=== PATIENT | male | born 1940 | race Caucasian/White ===

== ENCOUNTER 2019-08-20 16:07 | Outpatient (CLI) | payer MEDICARE, BC, SELFPAY ==
--- NOTE | 2019-08-20 16:20 | XRR_ITS ---
PROCEDURE INFORMATION: Exam: XR Lumbosacral Spine, 2 or 3 Views Exam date and time: 08/20/2019 4:34 PM Age: 79 years old Clinical indication: Patient HX: Chronic low back pain TECHNIQUE: Imaging protocol: XR of the lumbosacral spine, 2 or 3 views. COMPARISON: No relevant prior studies available. FINDINGS: Vertebrae: Generalized osteopenia is seen. A compression fracture is present involving the superior endplate of L2 vertebral body. Normal alignment. 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
== END 2019-08-20 16:08 | disposition home or self-care (01) ==
LOC: RAD 16:16
PROVIDERS: Family Provider Family Medicine; PCP Family Medicine; Visit Provider Family Medicine
DX: M48.56XA Collapsed vertebra, not elsewhere classified, lumbar region, initial encounter for fracture (principal); M54.5 Low back pain; I70.0 Atherosclerosis of aorta; M47.896 Other spondylosis, lumbar region; M47.897 Other spondylosis, lumbosacral region
CPT/HCPCS: 72100

== ENCOUNTER 2021-02-20 10:16 | Emergency (ER) | payer MEDICARE, BC, SELFPAY ==
[2021-02-20 10:28] VITALS: BP 134/83; PULSE 114; RESP 18; TEMP 36.5; O2SAT 96; BMI 25.0
[2021-02-20 10:32] VITALS: BP 134/83; PULSE 113; RESP 17; O2SAT 95
--- NOTE | 2021-02-20 10:34 | W.ED.GENADLT ---
HPI - General Adult General: Chief complaint: General Medical Stated complaint: UNABLE TO PEE OR HAVE BM Time Seen by Provider: 02/20/21 10:27 History of Present Illness: HPI narrative: 80-year-old male presents to the emergency room postop from a back surgery. He had it Monday, 3 days ago in [place]. Since then he has been able to have some dribbling with urination does not have a bowel movement he stopped taking his narcotic pain medications. Not had any fecal incontinence. Onset (ago): day(s) Location: pelvis Radiation: non-radiation Severity: moderate Quality: aching Pain Consistency: constant Relieving factors: none Exacerbating factors: movement Associated symptoms: Deny chest pain, confusion, cough, diaphoresis, decreased appetite, dyspnea, fevers/chills, headache(s), malaise, nausea, rash, palpitations, seizures, short of breath, syncope, vomiting or weakness Treatments prior to arrival: none Review of Systems Const: Denies: malaise or diaphoresis ENMT: Denies: throat pain, ear or mastoid pain, nasal discharge or nasal congestion Card: Denies: chest pain, palpitations or syncope Resp: Denies: dyspnea GI: Denies: nausea or vomiting : Denies: flank pain, dysuria, urinary frequency or urinary urgency Skin/Breast: Denies: rash Neuro: Denies: headache(s) or confusion Physical Exam Const: COMMON NORMALS: no acute distress GENERAL APPEARANCE: cooperative and comfortable ORIENTATION/CONSCIOUSNESS: Yes awake, Yes oriented to person, Yes oriented to place and Yes oriented to time HENMT: COMMON NORMALS: normocephalic, atraumatic and hearing grossly normal bilaterally HEAD & SCALP: normocephalic and atraumatic Neck/C-Spine: COMMON NORMALS: no JVD Resp: COMMON NORMALS: normal respiratory effort, No retractions, No use of accessory muscles and clear to auscultation bilaterally AUSCULTATION: clear to auscultation bilaterally Cardio: COMMON NORMALS: no JVD, regular rate, regular rhythm and No murmurs present (Cardio) RATE: regular rate RHYTHM: regular rhythm GI: COMMON NORMALS: Soft to palpation and No hepatosplenomegaly present AUSCULTATION: Yes normoactive bowel sounds PALPATION: Yes Soft to palpation, No Tenderness to palpation present (GI), No Guarding due to palpation present (GI) and Yes No hepatosplenomegaly present Extremity: COMMON NORMALS: normal to inspection, capillary refill normal, no clubbing, cyanosis or edema, no calf tenderness and no pedal edema Neuro: SENSORIUM/ORIENTATION: Yes oriented to person, Yes oriented to place and Yes oriented to time Skin: COMMON NORMALS: no rashes or lesions noted GENERAL SKIN EXAM: no rashes or lesions noted Course Vital Signs: Vital signs: Vital Signs Temperature 97.7 F 02/20/21 10:28 Pulse Rate 98 02/20/21 12:40 Respiratory Rate 17 02/20/21 12:40 Blood Pressure 115/77 02/20/21 12:40 Pulse Oximetry 94 02/20/21 12:40 MDM - General Adult MDM Narrative: Medical decision making narrative: Symptoms completely relieved after placement of catheter. Patient has no other symptoms at this point. Suspect this is from his anesthesia. We will start him on tamsulosin and have him follow-up with his urologist has further problems return. Lab Data: Labs: Lab Results 02/20/21 02/20/21 02/20/21 Range/Units 10:55 11:03 11:03 WBC 10.1 H (4.0-10.0) 10^3/ uL RBC 3.55 L (4.1-5.3) 10^6/u L Hgb 10.8 L (11.7-16.6) g/dL Hct 33.1 L (42.0-52.0) % MCV 93.2 (80-94) fL MCH 30.4 (28.0-34.0) pg MCHC 32.6 (30.0-36.0) g/dL RDW 13.5 (12.1-15.1) % Plt Count 215 (130-400) 10^3/c mm MPV 10.9 H (7.4-10.4) fL Neut % (Auto) 75.0 % Lymph % (Auto) 10.4 % Newton % (Auto) 13.7 % Eos % (Auto) 0.3 % Baso % (Auto) 0.3 % Neut # (Auto) 7.58 (1.8-7.7) 10^3/u L Lymph # (Auto) 1.1 (0.8-4.8) 10^3/u L Newton # (Auto) 1.4 H (0.2-0.9) 10^3/u L Eos # (Auto) 0.0 (0.0-0.8) 10^3/u L Baso # (Auto) 0.0 (0.0-0.1) 10^3/u L Nucleated RBC % (a uto) 0 % Nucleated RBCs # 0.0 /100WBC Sodium 133 L (136-145) mmol/L Potassium 4.5 (3.5-5.1) mmol/L Chloride 99 (98-107) mmol/L Carbon Dioxide 24 (22-29) mmol/L Anion Gap 14.5 (5-19) BUN 25 H (8-23) mg/dL Creatinine 1.3 H (0.7-1.2) mg/dL GFR Calculation Not Reportable Glucose 115 (65-115) mg/dL Calculated Osmolal ity 281 L (285-295) mOsm/k g Calcium 8.5 (8.5-10.5) mg/dL Total Bilirubin 0.7 (0.15-1.2) mg/dL AST 20 (0-40) U/L ALT 9 (0-41) U/L Alkaline Phosphata se 59 (40-130) IU/L Total Protein 6.6 (6.6-8.7) g/dL Albumin 3.9 (3.5-5.2) g/dL Globulin 2.7 (1.3-4.6) g/dL Urine Color Yellow (Yellow) Urine Appearance Clear (CLEAR) Urine pH 5 (5-7) Ur Specific Gravit y 1.015 (1.005-1.030) Urine Protein Neg (Negative) Urine Glucose (UA) Norm (Normal) Urine Ketones Negative (Negative) Urine Blood 2+ H (Negative) Urine Nitrate Negative (Negative) Urine Bilirubin Neg (Negative) Urine Urobilinogen Norm (Negative) mg/dL Ur Leukocyte Evangelina ase Negative (Negative) Urine RBC 5-10 H (0-2) /hpf Urine WBC Rare (0-5) /hpf Ur Squamous Epith Cells None (0-5) /hpf Amorphous Sediment Not Reportable Urine Bacteria Trace (NONE) /hpf Discharge Plan Discharge Patient Disposition: Home Clinical Impression: Acute urinary retention, Benign prostatic hyperplasia Condition: Stable Prescriptions: New tamsulosin 0.4 mg capsule 0.4 mg PO DAILY Qty: 20 RF: 0 No Action losartan 50 mg tablet 50 mg PO DAILY RF: 0 simvastatin 20 mg tablet 20 mg PO DAILY RF: 0 gabapentin 100 mg capsule 100 mg PO DAILY RF: 0 Discharge Orders: Discharge ED (Routine); Ordered 02/20/21 Ordered By: Dg Telles Referrals: Yaima Ji MD [Primary Care Provider] - Discharge Diet: Usual diet Discharge Activity: Limit activity as instructed Patient Instructions: Opioid Safety Activity Restrictions/Additional Instructions: Follow previous discharge instructions from your surgeon. Start the tamsulosin once daily. Case management will call to make a follow-up appointment with Dr. Rogers regarding the leg bag and urinary retention. Coding Level of Care Code ED Director Of Teaching And Learning for Yfn Fwchris Exam Comprehensive
[2021-02-20 11:42] LABS: Basophils % 0.3 %; Eosinophils % 0.3 %; Hematocrit 33.1 % (42.0-52.0); Hemoglobin 10.8 g/dL (11.7-16.6); Lymphocytes # 1.1 10^3/uL (0.8-4.8); Lymphocytes % 10.4 %; Mean Corpuscular HGB Conc 32.6 g/dL (30.0-36.0); Mean Corpuscular Hemoglobin 30.4 pg (28.0-34.0); Mean Corpuscular Volume 93.2 fL (80-94); Mean Platelet Volume 10.9 fL (7.4-10.4); Monocytes # 1.4 10^3/uL (0.2-0.9); Monocytes % 13.7 %; Neutrophils # 7.58 10^3/uL (1.8-7.7); Nucleated Red Blood Cells % 0 %; Platelet Count 215 10^3/cmm (130-400); Red Blood Count 3.55 10^6/uL (4.1-5.3); Red Cell Distribution Width 13.5 % (12.1-15.1); White Blood Count 10.1 10^3/uL (4.0-10.0)
[2021-02-20 12:07] LABS: Add Urine Culture? No; Add Urine Microscopic? YES; Bacteria Urine TRACE /hpf; Bilirubin Urine Neg (Negative); Blood Urine 2+ (Negative); Glucose Urine UA Norm (Normal); Ketones Urine Negative (Negative); Leukocyte Esterase Urine Negative (Negative); Nitrate Urine Negative (Negative); Protein Urine Neg (Negative); Specific Gravity, Urine 1.015 (1.005-1.030); Urine Appearance Clear (CLEAR); Urine Color Yellow (Yellow); Urobilinogen Urine Norm (Negative); WBC Urine RARE /hpf (0-5); pH Urine 5 (5-7)
[2021-02-20 12:09] LABS: Alanine Aminotransferase 9 U/L (0-41); Albumin Level 3.9 g/dL (3.5-5.2); Alkaline Phosphatase 59 IU/L (40-130); Anion Gap 14.5 (5-19); Aspartate Amino Transferase 20 U/L (0-40); Blood Urea Nitrogen 25 mg/dL (8-23); Calcium 8.5 mg/dL (8.5-10.5); Carbon Dioxide 24 mmol/L (22-29); Chloride 99 mmol/L (98-107); Globulin 2.7 g/dL (1.3-4.6); Glucose 115 mg/dL (65-115); Osmolality Calculated 281 mOsm/kg (285-295); Potassium 4.5 mmol/L (3.5-5.1); Sodium 133 mmol/L (136-145); Total Bilirubin 0.7 mg/dL (0.15-1.2); Total Protein 6.6 g/dL (6.6-8.7)
[2021-02-20 12:40] VITALS: BP 115/77; PULSE 98; RESP 17; O2SAT 94
--- NOTE | 2021-02-22 10:44 | DCPLANNER ---
manager field services had message to schedule a follow up appointment for patient with Dr. Rogers for urinary retention. manager field services called the office of Dr. Rogers, spoke with Lori, gave clinic patients information. manager field services was told that patients information would be printed and reviewed. Clinic will call patient with appointment information.
--- NOTE | 2021-02-23 08:33 | DCPLANNER ---
Patient has a follow up appointment scheduled for Tuesday, March 09, [address] at 4:[address] Rogers. Clinic will call patient with appointment information.
--- NOTE | 2021-03-19 12:50 | DCPLANNER ---
Patient had a follow up appointment scheduled for 03.09.[address] Rogers - patient did attend appointment.
== END 2021-02-20 12:44 | disposition home or self-care (01) ==
PROVIDERS: Emergency Provider Family Medicine; PCP Family Medicine
DX: N40.1 Benign prostatic hyperplasia with lower urinary tract symptoms (principal); R33.8 Other retention of urine
CPT/HCPCS: 51702; 80053; 81001; 85025; 99283

== ENCOUNTER 2021-02-27 17:24 | Emergency (ER) | payer MEDICARE, BC, SELFPAY ==
[2021-02-27 17:51] VITALS: BP 178/98; PULSE 94; RESP 17; TEMP 37; O2SAT 95; BMI 25.0
--- NOTE | 2021-02-27 22:30 | ED_ITS ---
HPI - Male Genitourinary General: Chief complaint: Urogenital-Male Stated complaint: Pulled catheter out Time Seen by Provider: 02/27/21 20:38 History of Present Illness: HPI Narrative: Patient is an 80-year-old male with back surgery a couple weeks ago that had a Parker placed because of urinary retention after surgery. He comes to the ER because he got frustrated with his Parker today and pulled it out with bulb intact. He says he had a small amount of blood at the tip of his penis. The bleeding has ceased. He is here because he has not urinated since this morning Severity: severe Context: recent surgery Review of Systems General: Reports: 10 or more systems reviewed and unremarkable except in HPI and below Const: Denies: fatigue Eyes: Denies: change in vision, blurry vision or eye redness ENMT: Denies: throat pain, swelling of lips/tongue, ear or mastoid pain or nasal congestion Card: Denies: chest pain, palpitations, irregular heart rhythm, edema, dyspnea on exertion or orthopnea Resp: Denies: dyspnea, productive cough or non-productive cough GI: Denies: abdominal pain, diarrhea or GI cramping : Reports: difficulty urinating and other (Urinary retention); Denies: flank pain, urinary frequency or urinary urgency Musc: Denies: neck pain, back pain, extremity pain, joint pain, joint redness, limited range of motion or muscle weakness Skin/Breast: Denies: rash, pruritus, erythema, skin pain or skin tenderness Neuro: Denies: headache(s), numbness in extremities, weakness in extremities, sensory changes, difficulty walking, dizziness, confusion or Slurred speech present Psych: Denies: anxiety or depression Endo: Denies: polyuria All/Imm: Denies: urticaria, throat swelling or tongue swelling Physical Exam Const: COMMON NORMALS: no acute distress, average body habitus, patient oriented x3, no limitations, healthy appearing, alert and well nourished GENERAL APPEARANCE: cooperative, comfortable, well kempt and well developed ORIENTATION/CONSCIOUSNESS: Yes awake, Yes oriented to person, Yes oriented to place and Yes oriented to time HENMT: COMMON NORMALS: normocephalic, external ears normal and Normal external nose present HEAD & SCALP: normal to inspection and normocephalic NOSE: Normal external nose present EXTERNAL EAR: Yes external ears normal MOUTH: Normal oral and palatal mucosa present THROAT: posterior oropharynx normal Eye: COMMON NORMALS: Equal, round and reactive pupils present and EOMs intact bilaterally GENERAL EYE: appearance normal, both eyes and all related structures PUPIL: Yes Equal, round and reactive pupils present Neck/C-Spine: COMMON NORMALS: full ROM, no lymphadenopathy, no meningeal signs and no JVD GENERAL: Yes normal visual inspection Lymph: LYMPHATIC: no lymphadenopathy noted Chest: COMMONS NORMALS: normal inspection of the chest and normal palpation of entire chest wall Resp: COMMON NORMALS: normal respiratory effort, No retractions, No use of accessory muscles, clear to auscultation bilaterally and percussion normal EFFORT & INSPECTION: Yes able to speak in complete sentences AUSCULTATION: clear to auscultation bilaterally PERCUSSION: percussion normal Cardio: COMMON NORMALS: no JVD, regular rate, regular rhythm, S1 normal heart sound present, S2 normal heart sound present and Peripheral pulses 2+ throughout RATE: regular rate RHYTHM: regular rhythm HEART SOUNDS: S1 normal heart sound present and S2 normal heart sound present PERIPHERAL PULSES: Peripheral pulses 2+ throughout GI: COMMON NORMALS: Normal to inspection, nondistended, normoactive bowel sounds present, Soft to palpation, non-tender and no masses INSPECTION: Yes normal to inspection PALPATION: Yes Soft to palpation : COMMON NORMALS: Yes no CVA tenderness BLADDER/KIDNEY EXAM: Yes no CVA tenderness Back/Pelvis: COMMON NORMALS: no CVA tenderness, thoracic and lumbar spine normal to inspection, no thoracic nor lumbar tenderness and thoraco-lumbar ROM normal Extremity: COMMON NORMALS: normal to inspection, full ROM, capillary refill normal, no joint enlargement and no pedal edema GENERAL: Yes normal exam except as noted Neuro: COMMON NORMALS: patient oriented x3, CN's II-XII intact bilaterally, moves all extremities, no focal motor deficits, no sensory deficits noted and gait normal SENSORIUM/ORIENTATION: Yes alert, Yes oriented to person, Yes oriented to place and Yes oriented to time MENINGEAL SIGNS: Yes no meningeal signs Psych: COMMON NORMALS: mental status grossly normal, Normal thought process present, cooperative, normal affect and speech normal APPEARANCE: Yes well kempt ATTITUDE: Yes calm SPEECH: Yes normal speech THOUGHT PROCESS: Normal thought process present Skin: COMMON NORMALS: no rashes or lesions noted GENERAL SKIN EXAM: no rashes or lesions noted Course Vital Signs: Vital signs: Vital Signs Temperature 98.6 F 02/27/21 17:51 Pulse Rate 82 02/27/21 23:42 Respiratory Rate 18 02/27/21 23:42 Blood Pressure 161/98 02/27/21 23:42 Pulse Oximetry 96 02/27/21 23:42 MDM - Male MDM Narrative: Medical decision making narrative: The nurse placed a Parker catheter with ease. Patient tolerated well. Good urine output. Stable for discharge. Lab Data: Labs: Lab Results 02/27/21 Range/Units 21:49 Urine Color Yellow (Yellow) Urine Appearance Clear (CLEAR) Urine pH 5 (5-7) Ur Specific Gravit y 1.015 (1.005-1.030) Urine Protein Neg (Negative) Urine Glucose (UA) Norm (Normal) Urine Ketones Negative (Negative) Urine Blood 3+ H (Negative) Urine Nitrate Positive H (Negative) Urine Bilirubin Neg (Negative) Urine Urobilinogen Norm (Negative) mg/dL Ur Leukocyte Evangelina ase Negative (Negative) Urine RBC 40-50 H (0-2) /hpf Urine WBC 0-4 H (0-5) /hpf Ur Squamous Epith Cells 0-4 H (0-5) /hpf Amorphous Sediment Not Reportable Urine Bacteria Trace (NONE) /hpf Discharge Plan Discharge Patient Disposition: Home Clinical Impression: Acute urinary retention Condition: Stable Prescriptions: No Action losartan 50 mg tablet 50 mg PO DAILY RF: 0 simvastatin 20 mg tablet 20 mg PO DAILY RF: 0 gabapentin 100 mg capsule 100 mg PO DAILY RF: 0 tamsulosin 0.4 mg capsule 0.4 mg PO DAILY Qty: 20 RF: 0 Discharge Orders: Discharge ED (Routine); Ordered 02/27/21 Ordered By: Juan Manuel Pérez Referrals: Yaima Ji MD [Primary Care Provider] - Discharge Diet: Advance as tolerated Discharge Activity: Resume usual activity Patient Instructions: Urinary Retention in Men (ED), Opioid Safety Activity Restrictions/Additional Instructions: Please continue to wear your Parker until you are seen by Dr. Rogers. Return t o the ER with any worsening symptoms and watch out for signs of urinary tract infection such as suprapubic cramping, cloudy urine, fever, chills or any other flank pain. If you have any worrisome or worsening symptoms please come to the ER. Coding Level of Care Code ED Machine Heel Seat Laster for Chg Fwd Exam Comprehensive
[2021-02-27 23:42] VITALS: BP 161/98; PULSE 82; RESP 18; O2SAT 96
[2021-02-28 00:14] LABS: Add Urine Microscopic? YES; Bilirubin Urine Neg (Negative); Blood Urine 3+ (Negative); Glucose Urine UA Norm (Normal); Ketones Urine Negative (Negative); Leukocyte Esterase Urine Negative (Negative); Nitrate Urine Positive (Negative); Protein Urine Neg (Negative); Specific Gravity, Urine 1.015 (1.005-1.030); Urine Appearance Clear (CLEAR); Urine Color Yellow (Yellow); Urobilinogen Urine Norm (Negative); pH Urine 5 (5-7)
[2021-02-28 00:18] LABS: Bacteria Urine TRACE /hpf; RBC Urine 40-50 /hpf (0-2); Squamous Epithelial Cell Urine 0-4 /hpf (0-5); WBC Urine 0-4 /hpf (0-5)
[2021-02-28 00:19] LABS: Add Urine Culture? Yes
== END 2021-02-27 23:45 | disposition home or self-care (01) ==
PROVIDERS: Nurse Practitioner Family; Emergency Provider Family Medicine; PCP Family Medicine
DX: R33.9 Retention of urine, unspecified (principal); Z98.890 Other specified postprocedural states
CPT/HCPCS: 51702; 81001; 81003; 87077; 87086; 87186; 99283

== ENCOUNTER 2021-03-04 10:17 | Emergency (ER) | payer MEDICARE, BC, SELFPAY ==
[2021-03-04 10:19] VITALS: BP 128/79; PULSE 77; RESP 14; TEMP 36.3; O2SAT 96; BMI 25.0
--- NOTE | 2021-03-04 10:24 | XRR_ITS ---
PROCEDURE INFORMATION: Exam: XR Chest Exam date and time: 03/04/2021 10:24 AM Age: 80 years old Clinical indication: Cough and dyspnea; Prior surgery; Surgery type: Back; Patient HX: Passed out; Additional info: Dyspnea/cough TECHNIQUE: Imaging protocol: XR of the chest. Views: 1 view. COMPARISON: CR Chest 1 [place] [id number] 04/02/2017 6:03 AM FINDINGS: Lungs: Hyperinflation and interstitial prominence. Pleural spaces: No pleural effusion. Heart/Mediastinum: Hiatal hernia. No cardiomegaly. Vasculature: Enlargement and tortuosity of the thoracic aorta. Bones/joints: Osteopenia and degenerative change. XR/XR chest 1V portable [id number] IMPRESSION: 1. Hyperinflation and interstitial prominence. 2. Hiatal hernia.
--- NOTE | 2021-03-04 10:24 | ECG_ITS ---
[facility] Test Date: 2021-03-04 Pat Name: Marquise Leon Department: Room: Gender: Male Entry Level Account Manager: : 1940 Requested By: Dg Gomez Order Number: [id number] Pawan MD: Gelacio Masterson M.D. Measurements Intervals [place] Rate: 74 P: 48 IL: 151 QRS: -35 QRSD: 107 T: 32 QT: 398 QTc: 442 Interpretive Statements SINUS RHYTHM MARKED LEFT AXIS DEVIATION [QRS AXIS < -30] Compared to ECG 04/02/2017 06:14:36 No significant changes Electronically Signed On 03-04-2021 23:04:06 CDT by Gelacio Masterson M.D. [id number]
[2021-03-04 10:28] VITALS: BP 128/79; PULSE 75; RESP 15; TEMP 36.3; O2SAT 98
--- NOTE | 2021-03-04 10:45 | W.ED.SYNCOPE ---
HPI - Syncope General: Chief Complaint: Syncope Stated Complaint: syncope Time Seen by Provider: 03/04/21 10:21 History of Present Illness: HPI narrative: 80-year-old male presents emergency room via EMS. He was at a [employer] with his she was getting her hair done and he was sitting in a chair he evidently just passed out bystanders reported he was not breathing EMS reported that when they arrived he was nonresponsive to sternal rub initially had a blood pressure in the 80s given 600 mg IV fluids his blood pressure and level of consciousness improved. He is awake and alert on arrival here denies any recollection of the event not lose bowel or bladder control he can recall being added to the [employer] he remembers everything that happened immediately after there was never anything that sounded like a postictal phase. Not previously had an episode like this he has no known history of heart disease no history of previous stroke. He does have a history of hypertension. MD complaint: loss of consciousness Onset (ago): minute(s) -: minutes(s) Prodromal symptoms: none Witnessed: Yes - by Bystander Context: at rest Injuries sustained associated with event: none Associated symptoms: Deny abdominal pain, chest pain, fever(s), headache(s), lightheadedness, nausea, short of breath, vertigo or weakness History: previous syncopal episode Treatments prior to arrival: IV fluids Review of Systems Const: Denies: fever(s) ENMT: Denies: throat pain, ear or mastoid pain, nasal discharge or nasal congestion Card: Denies: chest pain or lightheadedness Resp: Denies: dyspnea, productive cough or non-productive cough GI: Denies: abdominal pain or nausea : Denies: flank pain, dysuria, urinary frequency or urinary urgency Skin/Breast: Denies: rash or pruritus Neuro: Denies: headache(s) or vertigo Physical Exam Const: COMMON NORMALS: no acute distress GENERAL APPEARANCE: cooperative and comfortable ORIENTATION/CONSCIOUSNESS: Yes awake, Yes oriented to person, Yes oriented to place and Yes oriented to time HENMT: COMMON NORMALS: normocephalic, atraumatic and hearing grossly normal bilaterally HEAD & SCALP: normocephalic and atraumatic Neck/C-Spine: COMMON NORMALS: full ROM, no lymphadenopathy, supple and no JVD Lymph: LYMPHATIC: no lymphadenopathy noted and no lymphedema noted Resp: COMMON NORMALS: normal respiratory effort, No retractions, No use of accessory muscles and clear to auscultation bilaterally AUSCULTATION: clear to auscultation bilaterally Cardio: COMMON NORMALS: no JVD, regular rate, regular rhythm and No murmurs present (Cardio) RATE: regular rate RHYTHM: regular rhythm GI: COMMON NORMALS: Soft to palpation and No hepatosplenomegaly present AUSCULTATION: Yes normoactive bowel sounds PALPATION: Yes Soft to palpation, No Tenderness to palpation present (GI), No Guarding due to palpation present (GI) and Yes No hepatosplenomegaly present Extremity: COMMON NORMALS: normal to inspection, capillary refill normal, no clubbing, cyanosis or edema, no calf tenderness and no pedal edema Neuro: SENSORIUM/ORIENTATION: Yes oriented to person, Yes oriented to place and Yes oriented to time Skin: COMMON NORMALS: no rashes or lesions noted GENERAL SKIN EXAM: no rashes or lesions noted Course Vital Signs: Vital signs: Vital Signs Temperature 97.4 F L 03/04/21 10:28 Pulse Rate 90 03/04/21 13:48 Respiratory Rate 15 03/04/21 13:00 Blood Pressure 124/70 03/04/21 13:48 Pulse Oximetry 97 03/04/21 13:00 MDM - Syncope MDM Narrative: Medical decision making narrative: Reviewed all labs and imaging and EKG. No significant abnormalities creatinine is very slightly bumped. Still about at his baseline. Patient is feeling better and wishes to go. We will go ahead and discharge him home. He has had episodes of this before. Already set up for carotid duplex outpatient carotid echocardiogram and a 48-hour Holter monitor. Asked him to return to the emergency room if he has further problems. Lab Data: Labs: Lab Results 03/04/21 03/04/21 03/04/21 Range/Units 10:45 10:45 10:45 WBC 7.3 (4.0-10.0) 10^3/ uL RBC 3.91 L (4.1-5.3) 10^6/u L Hgb 12.0 (11.7-16.6) g/dL Hct 36.4 L (42.0-52.0) % MCV 93.1 (80-94) fL MCH 30.7 (28.0-34.0) pg MCHC 33.0 (30.0-36.0) g/dL RDW 12.6 (12.1-15.1) % Plt Count 391 (130-400) 10^3/c mm MPV 10.5 H (7.4-10.4) fL Neut % (Auto) 61.0 % Lymph % (Auto) 26.3 % [place] % (Auto) 9.9 % Eos % (Auto) 1.7 % Baso % (Auto) 0.8 % Neut # (Auto) 4.43 (1.8-7.7) 10^3/u L Lymph # (Auto) 1.9 (0.8-4.8) 10^3/u L [place] # (Auto) 0.7 (0.2-0.9) 10^3/u L Eos # (Auto) 0.1 (0.0-0.8) 10^3/u L Baso # (Auto) 0.1 (0.0-0.1) 10^3/u L Nucleated RBC % (a uto) 0 % Nucleated RBCs # 0.0 /100WBC Sodium 136 (136-145) mmol/L Potassium 4.8 (3.5-5.1) mmol/L Chloride 102 (98-107) mmol/L Carbon Dioxide 23 (22-29) mmol/L Anion Gap 15.8 (5-19) BUN 25 H (8-23) mg/dL Creatinine 1.5 H (0.7-1.2) mg/dL GFR Calculation Not Reportable Glucose 95 (65-115) mg/dL Calculated Osmolal ity 286 (285-295) mOsm/k g Calcium 8.7 (8.5-10.5) mg/dL Total Bilirubin 0.4 (0.15-1.2) mg/dL AST 17 (0-40) U/L ALT 11 (0-41) U/L Alkaline Phosphata se 86 (40-130) IU/L Troponin T Baselin e 22 H (0-15) ng/L Troponin T 120 Min demarcus (0-15) ng/L Delta Troponin T (0-10) ABS# Total Protein 7.2 (6.6-8.7) g/dL Albumin 3.9 (3.5-5.2) g/dL Globulin 3.3 (1.3-4.6) g/dL Urine Color (Yellow) Urine Appearance (CLEAR) Urine pH (5-7) Ur Specific Gravit y (1.005-1.030) Urine Protein (Negative) Urine Glucose (UA) (Normal) Urine Ketones (Negative) Urine Blood (Negative) Urine Nitrate (Negative) Urine Bilirubin (Negative) Urine Urobilinogen (Negative) mg/dL Ur Leukocyte Evangelina ase (Negative) Urine RBC (0-2) /hpf Urine WBC (0-5) /hpf Ur Squamous Epith Cells (0-5) /hpf Amorphous Sediment Urine Bacteria (NONE) /hpf Hyaline Casts /lpf Urine Mucus /hpf 03/04/21 03/04/21 Range/Units 10:55 13:05 WBC (4.0-10.0) 10^3/ uL RBC (4.1-5.3) 10^6/u L Hgb (11.7-16.6) g/dL Hct (42.0-52.0) % MCV (80-94) fL MCH (28.0-34.0) pg MCHC (30.0-36.0) g/dL RDW (12.1-15.1) % Plt Count (130-400) 10^3/c mm MPV (7.4-10.4) fL Neut % (Auto) % Lymph % (Auto) % [place] % (Auto) % Eos % (Auto) % Baso % (Auto) % Neut # (Auto) (1.8-7.7) 10^3/u L Lymph # (Auto) (0.8-4.8) 10^3/u L [place] # (Auto) (0.2-0.9) 10^3/u L Eos # (Auto) (0.0-0.8) 10^3/u L Baso # (Auto) (0.0-0.1) 10^3/u L Nucleated RBC % (a uto) % Nucleated RBCs # /100WBC Sodium (136-145) mmol/L Potassium (3.5-5.1) mmol/L Chloride (98-107) mmol/L Carbon Dioxide (22-29) mmol/L Anion Gap (5-19) BUN (8-23) mg/dL Creatinine (0.7-1.2) mg/dL GFR Calculation Glucose (65-115) mg/dL Calculated Osmolal ity (285-295) mOsm/k g Calcium (8.5-10.5) mg/dL Total Bilirubin (0.15-1.2) mg/dL AST (0-40) U/L ALT (0-41) U/L Alkaline Phosphata se (40-130) IU/L Troponin T Baselin e (0-15) ng/L Troponin T 120 Min demarcus 19.38 H (0-15) ng/L Delta Troponin T -2.62 L (0-10) ABS# Total Protein (6.6-8.7) g/dL Albumin (3.5-5.2) g/dL Globulin (1.3-4.6) g/dL Urine Color Yellow (Yellow) Urine Appearance Clear (CLEAR) Urine pH 7 (5-7) Ur Specific Gravit y 1.005 (1.005-1.030) Urine Protein Trace (Negative) Urine Glucose (UA) Norm (Normal) Urine Ketones Negative (Negative) Urine Blood 2+ H (Negative) Urine Nitrate Negative (Negative) Urine Bilirubin Neg (Negative) Urine Urobilinogen Norm (Negative) mg/dL Ur Leukocyte Evangelina ase Negative (Negative) Urine RBC 5-10 H (0-2) /hpf Urine WBC 0-4 H (0-5) /hpf Ur Squamous Epith Cells 0-4 H (0-5) /hpf Amorphous Sediment Not Reportable Urine Bacteria Trace (NONE) /hpf Hyaline Casts 25-40 H /lpf Urine Mucus 1+ /hpf Discharge Plan Discharge Patient Disposition: Home Clinical Impression: Syncope Condition: Stable Prescriptions: Discontinued tamsulosin 0.4 mg capsule 0.4 mg PO DAILY@14 RF: 0 No Action multivitamin Tablet 1 tab PO DAILY RF: 0 oxycodone-acetaminophen 5-325 mg Tablet 1 tab PO Q4H PRN (Reason: Pain) RF: 0 Glucosamine Chondroitin 550-30-1 mg Capsule 1 cap PO DAILY RF: 0 tizanidine 4 mg Tablet 4 mg PO Q8H PRN (Reason: Muscle Spasm) RF: 0 losartan 50 mg tablet 50 mg PO QAM RF: 0 simvastatin 20 mg tablet 20 mg PO BEDTIME RF: 0 gabapentin 100 mg capsule 100 mg PO TID RF: 0 Discharge Orders: Discharge ED (Routine); Ordered 03/04/21 Ordered By: Dg Telles Referrals: Yaima Ji MD [Primary Care Provider] - Patient Instructions: Opioid Safety Activity Restrictions/Additional Instructions: Case management will call to schedule an outpatient echocardiogram 48-hour Holter monitor and carotid duplex. Follow-up with your primary care doctor within the next 3 to 4 days return to the emergency room if you have further problems. Coding Level of Care Code ED Seam Feller for Chg Fwd Exam Comprehensive
--- NOTE | 2021-03-04 10:50 | CT_ITS ---
WS: [id number] CT HEAD NONCONTRAST HISTORY: LOC TECHNIQUE: Contiguous axial imaging performed through the brain in 2.5 mm imaging. Bone and soft tiss ue windows. Sagittal and coronal reformats reviewed. All CT scans at [facility] use at ast one of these dose optimization techniques: automated exposure control; mA and/or kV adjustment pe r patient size (includes targeted exams where dose is matched to clinical indication); or iterative r econstruction. DLP: 850.04 mGy.cm COMPARISON: 08/10/2016 No acute intracranial hemorrhage, midline shift or mass effect. Moderate bilateral atrophy. There is severe chronic microvascular ischemic changes bilaterally. [place] infarct LEFT thalamus. Ventricles: Very mild prominence of the ventricular system. Paranasal sinuses: As visualized are clear. Mastoid air cells: Well pneumatized. Calvarium and scalp: Skull is intact with no soft tissue edema or swelling. CT/CT head wo con* [id number] IMPRESSION: 1. No acute intracranial hemorrhage or edema. 2. Moderate atrophy with severe small vessel ischemic disease. Moderate progre ssion since 2017.
[2021-03-04 10:57] LABS: Basophils # 0.1 10^3/uL (0.0-0.1); Basophils % 0.8 %; Eosinophils # 0.1 10^3/uL (0.0-0.8); Eosinophils % 1.7 %; Hematocrit 36.4 % (42.0-52.0); Lymphocytes # 1.9 10^3/uL (0.8-4.8); Lymphocytes % 26.3 %; Mean Corpuscular Hemoglobin 30.7 pg (28.0-34.0); Mean Corpuscular Volume 93.1 fL (80-94); Mean Platelet Volume 10.5 fL (7.4-10.4); Monocytes # 0.7 10^3/uL (0.2-0.9); Monocytes % 9.9 %; Neutrophils # 4.43 10^3/uL (1.8-7.7); Nucleated Red Blood Cells % 0 %; Platelet Count 391 10^3/cmm (130-400); Red Blood Count 3.91 10^6/uL (4.1-5.3); Red Cell Distribution Width 12.6 % (12.1-15.1); White Blood Count 7.3 10^3/uL (4.0-10.0)
[2021-03-04 11:00] VITALS: BP 159/85; PULSE 80; RESP 17; O2SAT 98
[2021-03-04 11:14] LABS: Alanine Aminotransferase 11 U/L (0-41); Albumin Level 3.9 g/dL (3.5-5.2); Alkaline Phosphatase 86 IU/L (40-130); Aspartate Amino Transferase 17 U/L (0-40); Blood Urea Nitrogen 25 mg/dL (8-23); Calcium 8.7 mg/dL (8.5-10.5); Carbon Dioxide 23 mmol/L (22-29); Chloride 102 mmol/L (98-107); Globulin 3.3 g/dL (1.3-4.6); Glucose 95 mg/dL (65-115); Osmolality Calculated 286 mOsm/kg (285-295); Sodium 136 mmol/L (136-145); Total Bilirubin 0.4 mg/dL (0.15-1.2); Total Protein 7.2 g/dL (6.6-8.7)
[2021-03-04 11:15] LABS: Troponin(5th) Baseline 22 ng/L (0-15)
[2021-03-04 11:20] LABS: Creatinine Clr Calc Pharmacy 38.1611
[2021-03-04 11:21] LABS: Anion Gap 15.8 (5-19); Potassium 4.8 mmol/L (3.5-5.1)
[2021-03-04 11:39] LABS: Add Urine Microscopic? YES; Bilirubin Urine Neg (Negative); Blood Urine 2+ (Negative); Glucose Urine UA Norm (Normal); Ketones Urine Negative (Negative); Leukocyte Esterase Urine Negative (Negative); Nitrate Urine Negative (Negative); Protein Urine Trace (Negative); Specific Gravity, Urine 1.005 (1.005-1.030); Urine Appearance Clear (CLEAR); Urine Color Yellow (Yellow); Urobilinogen Urine Norm (Negative); pH Urine 7 (5-7)
[2021-03-04 11:40] LABS: Squamous Epithelial Cell Urine 0-4 /hpf (0-5); WBC Urine 0-4 /hpf (0-5)
[2021-03-04 11:41] LABS: Add Urine Culture? No; Bacteria Urine TRACE /hpf; Hyaline Casts Urine 25-40 /lpf; Mucus Urine 1+ /hpf
[2021-03-04 12:00] VITALS: PULSE 81; RESP 13; O2SAT 98
--- NOTE | 2021-03-04 12:24 | ECG_ITS ---
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 Measurements Intervals [place] Rate: 80 P: 40 IA: 157 QRS: -22 QRSD: 101 T: 14 QT: 379 QTc: 439 Interpretive Statements SINUS RHYTHM POSSIBLE LEFT ATRIAL ENLARGEMENT [-0.1mV P WAVE IN V1/V2] BORDERLINE LEFT AXIS DEVIATION [QRS AXIS < -20] Compared to ECG 03/04/2021 10:32:25 No significant changes Electronically Signed On 03-04-2021 23:06:01 CDT by Gelacio Masterson M.D. [id number] f
[2021-03-04 13:00] VITALS: PULSE 91; RESP 15; O2SAT 97
--- NOTE | 2021-03-04 13:18 | PC.NURSE ---
Bag lunch provided. Doctor Okayed.
[2021-03-04 13:42] LABS: Troponin 5 2HR 19.38 ng/L (0-15)
[2021-03-04 13:43] LABS: Troponin 5 2HR Delta -2.62 ABS# (0-10)
[2021-03-04 13:48] VITALS: BP 110/65; BP 121/78; BP 124/70; PULSE 90; PULSE 97; PULSE 98
--- NOTE | 2021-03-05 11:07 | DCPLANNER ---
Addendum entered by Silvana Miller 03/24/21 14:04: Patient has a 48 hour halter monitor scheduled for Wednesday, April 07, 2021 at 1:[facility] Clinic will call patient with appointment information. Addendum entered by Silvana Miller 03/16/21 08:22: Patient has a stress test scheduled for Monday, March 29, 2021 at 11:30. Addendum entered by Silvana Miller 03/09/21 12:45: commercial loan manager also had message to schedule a outpatient stress test for patient. commercial loan manager faxed signed order to centralized scheduling. Centralized scheduling will call patient with appointment information. Original Note: commercial loan manager had message to schedule a follow up appointment for patient for a echocardiogram, a 48 hour halter monitor, and a carotid duplex. commercial loan manager faxed signed order to centralized scheduling and [facility].
--- NOTE | 2021-03-08 07:44 | DCPLANNER ---
Patient has an echo and a carotid duplex scheduled for Monday, 04.02.21. Centralized scheduling will call patient with appointment information.
--- NOTE | 2021-03-31 12:02 | DCPLANNER ---
Patient had a follow up appointment scheduled for 03.29.21 for an outpatient stress test - patient did attend appointment.
--- NOTE | 2021-04-09 15:32 | DCPLANNER ---
Patient had a follow up appointment scheduled for 04.02.21 for an echo and a carotid duplex -patient did attend appointment. Patient had an appointment scheduled for 04.07.21 for a 48 hour halter - patient did attend appointment.
== END 2021-03-04 14:07 | disposition home or self-care (01) ==
PROVIDERS: Emergency Provider Family Medicine; PCP Family Medicine
DX: R55 Syncope and collapse (principal)
CPT/HCPCS: 36415; 70450; 71045; 80053; 81001; 84484; 85025; 93005; 99284

== ENCOUNTER 2021-03-29 09:13 | Outpatient (CLI) | payer MEDICARE, BC, SELFPAY ==
[2021-03-29 09:35] VITALS: BMI 25.0
--- NOTE | 2021-03-29 09:40 | NMCV_ITS ---
NM thomas perf SPECT r/s* [id number] Marquise Leon Age: 80 Gender: M : 1940 Exam Date: 03/29/2021 09:40 Ordering Phys: Dg Telles DO Technologist: MOI Pennington Exam Location: [facility] [place] Indications: syncope STRESS TEST Please see separate stress test report [facility] for full findings IMAGE PROTOCOL Rest/Stress 1 Lexiscan Day Radiopharmaceutical Dose (mCi) Administration Site Administered by Rest: Tc-99m 10.7 IV MOI Chong Sestamibi Stress:Tc-99m 32.2 IV MOI Chong Sestamibi Rest: 29-Mar-2021 60 Discovery 630 Stress: 29-Mar-2021 30 Discovery 630 0.4mg Lexiscan. Images obtained in supine and prone position. SPECT RESULTS Technical Quality: Excellent Raw Data Analysis: Normal Image Corrections: No attenuation or motion correction applied Summed Stress Score: 0 Summed Rest Score: 0 Summed Difference Score: 0 PERFUSION FINDINGS SPECT images demonstrate homogeneous tracer distribution throughout the myocardium. FUNCTIONAL RESULTS (calculated via Gated SPECT) Stress Image LV EF (%): 69 Stress EDV (mL):102 TID: 1.05 Stress ESV (mL):32 Rest Image LV EF (%): 69 FUNCTIONAL FINDINGS: There is normal left ventricular systolic function. IMPRESSIONS Myocardial perfusion imaging is normal. This study is low probability for obstructive coronary artery disease. EKG segment will be documented separately. Miladis Muse MD (Electronically Signed) Final Date: 29 March 2021 12:52 S
--- NOTE | 2021-03-29 09:40 | ECG_ITS ---
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 The perfusion scan will be documented separately. DATA: Baseline heart rate was 81 beats per minute. Baseline blood pressure was 173/99 millimeters of mercury. Target heart rate was 140. Maximum heart rate achieved was 106. which was 77 % of the predicted target heart rate. Maximum blood pressure was 173/102 millimeters of mercury. The reason for ending the test was completion of the protocol. The patient did not experience any symptoms. ELECTROCARDIOGRAM: BASELINE: Sinus rhythm. Normal axis. Old anterior wall myocardial infarction EXERCISE: After Lexiscan injection, no ST-T changes suggestive of ischemic noted. No arrhythmia noted. CONCLUSION: Please note due to baseline abnormality of the EKG specificity and sensitivity of the EKG portion of LexiScan MIBI stress test will be low 1. EKG not suggestive of ischemia 2. Lexiscan injection unremarkable. 3. Perfusion scan will be documented separately. Electronically Signed On 03-30-2021 21:20:21 CDT by SCOTTY DO [id number]
[2021-03-29 11:23] VITALS: BP 160/100; PULSE 89
[2021-03-29] MEDS: regadenoson 0.4 Mg/5 ml Syringe IVP (11:23)
== END 2021-03-29 09:14 | disposition home or self-care (01) ==
PROVIDERS: PCP Family Medicine; Visit Provider Family Medicine
DX: R55 Syncope and collapse (principal)
CPT/HCPCS: 78452; 93017; A9500; J2785

== ENCOUNTER 2021-04-02 14:00 | Outpatient (CLI) | payer MEDICARE, BC, SELFPAY ==
--- NOTE | 2021-04-02 14:15 | USCV_ITS ---
Marquise Leon Age: 80 Gender: M : 1940 Exam Date: 04/02/2021 14:23 Ordering Phys: Dg eTlles DO Technologist: Elizabeth Vargas Exam Location: [facility] [place] Indication: syncopal episode BP: 120 / 60 HR: 67 Rhythm: Sinus Technical Quality: Good MEASUREMENTS (Male / Female) Normal Values 2D ECHO LV Diastolic Diameter PLAX 4.6 cm 4.2 - 5.9 / 3.9 - 5.3 cm LV Systolic Diameter PLAX 3.0 cm IVS Diastolic Thickness 1.2 cm 0.6 - 1.0 / 0.6 - 0.9 cm IVS Systolic Thickness 1.7 cm LVPW Diastolic Thickness 1.0 cm 0.6 - 1.0 / 0.6 - 0.9 cm LVPW Systolic Thickness 1.5 cm LV Ejection Fraction 2D Teich 63.9 % LV Ejection Fraction MOD 2C 62.7 % LV Ejection Fraction 2C AL 65.6 % LA Diameter 2.7 cm LA Width 3.2 cm LA Height 4.1 cm RA Width 3.1 cm RA Height 4.6 cm Aorta at Sinotubular Diameter 3.2 cm DOPPLER AV Peak Velocity 134.0 cm/s LVOT Peak Velocity 124.0 cm/s MV Peak Velocity 113.0 cm/s MV Area PHT 2.6 cm squared Mitral E to A Ratio 0.7 MV E' Velocity 46.5 cm/s Mitral E to MV E' Ratio 11.7 Mitral E to LV E' Lateral Ratio 11.1 Mitral E to LV E' Septal Ratio 12.4 TR Peak Velocity 232.5 cm/s TR Peak Gradient 21.6 mmHg Right Atrial Pressure 3.0 mmHg Pulmonary Artery Systolic Pressu 24.6 mmHg PV Peak Velocity 92.0 cm/s RV Acceleration Time 0.1 s RV Ejection Time 0.3 s RV AcT/ET 0.4 FINDINGS Left Ventricle Normal left ventricular cavity size. Normal left ventricular systolic function. No regional wall motion abnormalities. Left ventricular ejection fraction is estimated at 63 %. Grade I/IV diastolic dysfunction (abnormal relaxation filling pattern), normal to mildly elevated filling pressures. Right Ventricle The right ventricle is normal in size and function. Right Atrium The right atrium is normal in size. Left Atrium The left atrium is normal in size. Mitral Valve Mildly thickened mitral valve. No mitral valve stenosis. Trace mitral valve regurgitation. Aortic Valve Structurally normal aortic valve without significant sclerosis or stenosis. There is no aortic regurgitation. Tricuspid Valve Mild tricuspid valve regurgitation. Pulmonic Valve Mild pulmonary valve regurgitation. Pericardium Normal pericardium without effusion. Aorta Normal ascending aorta dimension. CONCLUSIONS 1-Normal left ventricular cavity size. Normal left ventricular systolic function. No regional wall motion abnormalities. Left ventricular ejection fraction is estimated at 63 %. Grade I/IV diastolic dysfunction (abnormal relaxation filling pattern), normal to mildly elevated filling pressures. 2-There is no pericardial effusion. 3-No significant valve abnormalities. 4-Right atrial pressure is around 5 mm of mercury. 5-No significant change since the prior echocardiogram study of 08/10/2016. Miladis Muse MD (Electronically Signed) Final Date: 02 April 2021 16:14 S
--- NOTE | 2021-04-02 15:00 | USCV_ITS ---
Oliviaryan Marquise Age: 80 Gender: M : 1940 Exam Date: 04/02/2021 14:46 Ordering Phys: Dg Telles DO Technologist: Elizabeth Vargas [place] [facility] [place] Indication: syncopal episodes Risk Factors: Previous Vascular Surgery: Right Brachial BP: / Left Brachial BP: / Right Left Velocity (cm/s) Spectral Plaque Velocity (cm/s) Spectral Plaque Syst/Diast Broadening Syst/Diast Broadening 57.20/ 7.90 Prox CCA 52.80 / 14.80 50.60/ 13.10 Mid CCA 61.40 / 14.80 49.30/ 13.80 Hetro Distal CCA 54.40 / 13.20 Hetro 53.00/ 17.90 Hetro Prox ICA 42.40 / 11.70 Hetro 42.20/ 11.70 Mid ICA 44.30 / 14.80 54.40/ 15.50 Distal ICA 56.60 / 17.50 56.80 ECA 75.70 0.93 ICA/CCA 0.92 Antegrade Vertebral Antegrade 54.70/ 17.10 cm/s 61.50/ 16.20 cm/s Tri Subclavian Tri 134.1 98.00 0 FINDINGS Comparison:. 08/10/16. No significant elevation of systolic or diastolic velocities. Waveforms are normal. Mixture of calcified and noncalcified plaque in the bifurcations. CONCLUSIONS Bilateral ICA stenosis less than 50%. Mild carotid atherosclerosis in the bifurcations. Dr. Margo Shirley DO (Electronically Signed) Final Date: 02 April 2021 15:21 S
== END 2021-04-02 14:01 | disposition home or self-care (01) ==
LOC: US 14:04
PROVIDERS: PCP Family Medicine; Visit Provider Family Medicine
DX: R55 Syncope and collapse (principal); I65.23 Occlusion and stenosis of bilateral carotid arteries
CPT/HCPCS: 93306; 93880

== ENCOUNTER 2021-07-21 11:38 | Emergency (ER) | payer MEDICARE, BC, SELFPAY ==
[2021-07-21 11:56] VITALS: BP 193/99; PULSE 83; RESP 18; TEMP 37.1; O2SAT 98; BMI 25.0
--- NOTE | 2021-07-21 12:06 | CT_ITS ---
WS: [id number] CT HEAD NONCONTRAST HISTORY: ams, memory disturbance TECHNIQUE: Contiguous axial imaging performed through the brain in 2.5 mm imaging. Bone and soft tiss ue windows. Sagittal and coronal reformats reviewed. All CT scans at [facility] use at least one of these dose optimization techniques: automated exposure control; mA and/or kV adjustment per pa tient size (includes targeted exams where dose is matched to clinical indication); or iterative recon struction. DLP: 884.9 mGy.cm COMPARISON: 03/04/2021 No acute intracranial hemorrhage, midline shift or mass effect. Mild atrophy with moderate to severe chronic ischemic type changes. No significant progression since the prior study. Small lacunar infarcts in the internal capsules and LEFT thalamus. Similar findings noted on the prior examination. No new infarct. Ventricles: Ventricles and extra-axial spaces are dilated on the basis of atrophy. There is mild dif fuse ventriculomegaly. No inferior displacement of cerebellar tonsils. Paranasal sinuses: As visualized are clear. Mastoid air cells: Well pneumatized. Calvarium and scalp: Skull is intact with no soft tissue edema or swelling. CT/CT head wo con* [id number] IMPRESSION: 1. No acute intracranial hemorrhage or edema. 2. Moderate atrophy with extensive chronic small vessel ischemic disease. Bila teral lacunar infarcts are similar to the prior study. No acute interval change .
[2021-07-21 12:59] LABS: Basophils # 0.1 10^3/uL (0.0-0.1); Eosinophils # 0.2 10^3/uL (0.0-0.8); Eosinophils % 3.5 %; Hemoglobin 13.8 g/dL (11.7-16.6); Lymphocytes # 1.6 10^3/uL (0.8-4.8); Lymphocytes % 30.7 %; Mean Corpuscular HGB Conc 32.1 g/dL (30.0-36.0); Mean Corpuscular Hemoglobin 29.4 pg (28.0-34.0); Mean Corpuscular Volume 91.5 fl (80-94); Mean Platelet Volume 10.2 fL (7.4-10.4); Monocytes # 0.6 10^3/uL (0.2-0.9); Monocytes % 12.3 %; Neutrophils # 2.69 10^3/uL (1.8-7.7); Neutrophils % 52.3 %; Nucleated Red Blood Cells % 0 %; Platelet Count 305 10^3/cmm (130-400); Red Cell Distribution Width 12.9 % (12.1-15.1); White Blood Count 5.1 10^3/uL (4.0-10.0)
[2021-07-21 13:18] LABS: Alanine Aminotransferase 14 U/L (0-41); Albumin Level 4.6 g/dL (3.5-5.2); Alkaline Phosphatase 95 IU/L (40-130); Anion Gap 18.4 (5-19); Aspartate Amino Transferase 20 U/L (0-40); Blood Urea Nitrogen 18 mg/dL (8-23); Calcium 9.1 mg/dL (8.5-10.5); Carbon Dioxide 23 mmol/L (22-29); Chloride 102 mmol/L (98-107); Globulin 3.8 g/dL (1.3-4.6); Glucose 95 mg/dL (65-115); Osmolality Calculated 290 mOsm/kg (285-295); Potassium 4.4 mmol/L (3.5-5.1); Sodium 139 mmol/L (136-145); Total Bilirubin 0.4 mg/dL (0.15-1.2); Total Protein 8.4 g/dL (6.6-8.7)
--- NOTE | 2021-07-21 15:46 | W.ED.NEUROSD ---
Documented by User: MALKA Blue 07/22/21 07:26 HPI - Neuro Symptoms/Deficit General: Chief Complaint: Neuro Symptoms/Deficit Stated Complaint: MEMORY LOSS/UNBALANCED Time Seen by Provider: 07/21/21 15:44 History of Present Illness: Associated symptoms: Deny chest pain, headache(s), nausea or vomiting Review of Systems Const: Denies: fever(s), chills or body aches Eyes: Denies: change in vision or blurry vision ENMT: Denies: throat pain or nasal congestion Card: Denies: chest pain or dyspnea on exertion Resp: Denies: dyspnea, productive cough or non-productive cough GI: Denies: abdominal pain, nausea or vomiting : Denies: difficulty urinating Musc: Denies: extremity pain Skin/Breast: Denies: rash Neuro: Reports: other (Patient has been having episodes of confusion did have increased confusion ); Denies: headache(s) Psych: Reports: other (Confusion over the last few months intermittent); Denies: anxiety or depression Akhil/Lymph: Denies: easy bruising PFSH ED PFSH: Medical History Urinary retention Surgical History History of lumbar laminectomy Family History Father , at age 72 Cancer liver Mother , at age 75 Dementia Social History Alcohol intake: never Marital status: Current occupational status: retired History of recent travel: No Physical Exam Const: COMMON NORMALS: no acute distress, average body habitus and alert HENMT: COMMON NORMALS: normocephalic HEAD & SCALP: normal to inspection and normocephalic FACE & SINUS: normal facial exam Eye: COMMON NORMALS: conjunctivae normal GENERAL EYE: appearance normal, both eyes and all related structures CONJUNCTIVA: Yes conjunctivae normal Neck/C-Spine: COMMON NORMALS: no JVD Chest: COMMONS NORMALS: normal inspection of the chest Resp: COMMON NORMALS: normal respiratory effort and clear to auscultation bilaterally AUSCULTATION: clear to auscultation bilaterally Cardio: COMMON NORMALS: no JVD, regular rate and regular rhythm RATE: regular rate RHYTHM: regular rhythm GI: COMMON NORMALS: Normal to inspection, nondistended, normoactive bowel sounds present Extremity: COMMON NORMALS: normal to inspection and full ROM Neuro: COMMON NORMALS: moves all extremities and no sensory deficits noted SENSORIUM/ORIENTATION: Yes alert SPEECH: speech normal GAIT: Yes Normal gait present (Use a walking cane) Course Vital Signs: Vital signs: Vital Signs Temperature 98.7 F 07/21/21 17:33 Pulse Rate 83 07/21/21 17:33 Respiratory Rate 18 07/21/21 17:33 Blood Pressure 193/99 07/21/21 17:33 Pulse Oximetry 98 07/21/21 17:33 MDM - Neuro Symptoms/Deficit MDM Narrative: Medical decision making narrative: Brief history and physical exam was performed as part of the triage process. Patient is currently safe to wait in the waiting room until we can get them placed. Patient informed that if condition worsens at any time to please let the front end driver know. Further evaluation patient reveals no neurological deficits at this time. Discussed laboratory test and radiology results. Discussed dementia and other related problems. Patient is requesting to go home and family members are side and agreeing that they should go on home. Patient and family member encouraged to return if any worsening of symptoms. Based on patient's history and physical exam appears to be most likely age-related dementia changes. No sign of stroke or weakness in any extremities. Patient had a triage classification of emergent emergent should have most likely been an urgent classification. Discussed case with Dr. Telles went over labs radiology studies on presentation and agree that patient okay to be discharged home and follow-up with primary care provider Lab Data: Labs: Lab Results 07/21/21 07/21/21 12:54 12:54 WBC 5.1 10^3/uL 10^3/ uL (4.0-10.0) RBC 4.70 10^6/uL 10^6 /uL (4.1-5.3) Hgb 13.8 g/dL g/dL (11.7-16.6) Hct 43.0 % % (42.0-52.0) MCV 91.5 fl fl (80-94) MCH 29.4 pg pg (28.0-34.0) MCHC 32.1 g/dL g/dL (30.0-36.0) RDW 12.9 % % (12.1-15.1) Plt Count 305 10^3/cmm 10^3 /cmm (130-400) MPV 10.2 fL fL (7.4-10.4) Neut % (Auto) 52.3 % % Lymph % (Auto) 30.7 % % [place] % (Auto) 12.3 % % Eos % (Auto) 3.5 % % Baso % (Auto) 1.0 % % Neut # (Auto) 2.69 10^3/uL 10^3 /uL (1.8-7.7) Lymph # (Auto) 1.6 10^3/uL 10^3/ uL (0.8-4.8) [place] # (Auto) 0.6 10^3/uL 10^3/ uL (0.2-0.9) Eos # (Auto) 0.2 10^3/uL 10^3/ uL (0.0-0.8) Baso # (Auto) 0.1 10^3/uL 10^3/ uL (0.0-0.1) Nucleated RBC % (a uto) 0 % % Nucleated RBCs # 0.0 /100WBC /100W BC Sodium 139 mmol/L mmol/L (136-145) Potassium 4.4 mmol/L mmol/L (3.5-5.1) Chloride 102 mmol/L mmol/L (98-107) Carbon Dioxide 23 mmol/L mmol/L (22-29) Anion Gap 18.4 (5-19) BUN 18 mg/dL mg/dL (8-23) Creatinine 1.2 mg/dL mg/dL (0.7-1.2) GFR Calculation Not Reportable Glucose 95 mg/dL mg/dL (65-115) Calculated Osmolal ity 290 mOsm/kg mOsm/ kg (285-295) Calcium 9.1 mg/dL mg/dL (8.5-10.5) Total Bilirubin 0.4 mg/dL mg/dL (0.15-1.2) AST 20 U/L U/L (0-40) ALT 14 U/L U/L (0-41) Alkaline Phosphata se 95 IU/L IU/L (40-130) Total Protein 8.4 g/dL g/dL (6.6-8.7) Albumin 4.6 g/dL g/dL (3.5-5.2) Globulin 3.8 g/dL g/dL (1.3-4.6) Discharge Plan Discharge Patient Disposition: Home Clinical Impression: Dementia Qualifiers: Dementia type: vascular dementia Dementia behavioral disturbance: without behavioral disturbance Qualified Code(s): F01.50 - Vascular dementia without behavioral disturbance Condition: Stable Prescriptions: No Action silodosin 8 mg capsule 8 mg PO DAILY Qty: 30 RF: 12 doxycycline hyclate 100 mg tablet See Rx Instructions .ROUTE .COMPLEX Qty: 60 RF: 1 multivitamin Tablet 1 tab PO DAILY RF: 0 Glucosamine Chondroitin 550-30-1 mg Capsule 1 cap PO DAILY RF: 0 simvastatin 20 mg tablet 20 mg PO BEDTIME RF: 0 gabapentin 100 mg capsule 100 mg PO DAILY RF: 0 Discharge Orders: Discharge ED (Routine); Ordered 07/21/21 Ordered By: Jaquan Atkinson Referrals: Tosin Munson DO [Primary Care Provider] - Discharge Diet: Usual diet Discharge Activity: Increase activity as tolerated Patient Instructions: Dementia (ED) Activity Restrictions/Additional Instructions: Follow-up your family medical doctor as discussed. Return the ER as needed. Coding Level of Care Code ED Enrollment Eligibility Representative for Chg Fwd Exam Comprehensive Documented by User: Dg Telles DO 07/23/21 17:10 HPI - Neuro Symptoms/Deficit General: Chief Complaint: Neuro Symptoms/Deficit Stated Complaint: MEMORY LOSS/UNBALANCED Time Seen by Provider: 07/21/21 15:44 PFSH ED PFSH: Medical History Urinary retention Surgical History History of lumbar laminectomy Family History Father , at age 72 Cancer liver Mother , at age 75 Dementia Social History Alcohol intake: never Marital status: Current occupational status: retired History of recent travel: No Course Vital Signs: Vital signs: Vital Signs Temperature 98.7 F 07/21/21 17:33 Pulse Rate 83 07/21/21 17:33 Respiratory Rate 18 07/21/21 17:33 Blood Pressure 193/99 07/21/21 17:33 Pulse Oximetry 98 07/21/21 17:33 MDM - Neuro Symptoms/Deficit MDM Narrative: Medical decision making narrative: Chart reviewed and patient discussed with midlevel. Agree with assessment and plan. Lab Data: Labs: Lab Results 07/21/21 07/21/21 12:54 12:54 WBC 5.1 10^3/uL 10^3/ uL (4.0-10.0) RBC 4.70 10^6/uL 10^6 /uL (4.1-5.3) Hgb 13.8 g/dL g/dL (11.7-16.6) Hct 43.0 % % (42.0-52.0) MCV 91.5 fl fl (80-94) MCH 29.4 pg pg (28.0-34.0) MCHC 32.1 g/dL g/dL (30.0-36.0) RDW 12.9 % % (12.1-15.1) Plt Count 305 10^3/cmm 10^3 /cmm (130-400) MPV 10.2 fL fL (7.4-10.4) Neut % (Auto) 52.3 % % Lymph % (Auto) 30.7 % % [place] % (Auto) 12.3 % % Eos % (Auto) 3.5 % % Baso % (Auto) 1.0 % % Neut # (Auto) 2.69 10^3/uL 10^3 /uL (1.8-7.7) Lymph # (Auto) 1.6 10^3/uL 10^3/ uL (0.8-4.8) [place] # (Auto) 0.6 10^3/uL 10^3/ uL (0.2-0.9) Eos # (Auto) 0.2 10^3/uL 10^3/ uL (0.0-0.8) Baso # (Auto) 0.1 10^3/uL 10^3/ uL (0.0-0.1) Nucleated RBC % (a uto) 0 % % Nucleated RBCs # 0.0 /100WBC /100W BC Sodium 139 mmol/L mmol/L (136-145) Potassium 4.4 mmol/L mmol/L (3.5-5.1) Chloride 102 mmol/L mmol/L (98-107) Carbon Dioxide 23 mmol/L mmol/L (22-29) Anion Gap 18.4 (5-19) BUN 18 mg/dL mg/dL (8-23) Creatinine 1.2 mg/dL mg/dL (0.7-1.2) GFR Calculation Not Reportable Glucose 95 mg/dL mg/dL (65-115) Calculated Osmolal ity 290 mOsm/kg mOsm/ kg (285-295) Calcium 9.1 mg/dL mg/dL (8.5-10.5) Total Bilirubin 0.4 mg/dL mg/dL (0.15-1.2) AST 20 U/L U/L (0-40) ALT 14 U/L U/L (0-41) Alkaline Phosphata se 95 IU/L IU/L (40-130) Total Protein 8.4 g/dL g/dL (6.6-8.7) Albumin 4.6 g/dL g/dL (3.5-5.2) Globulin 3.8 g/dL g/dL (1.3-4.6) Discharge Plan Discharge Patient Disposition: Home Clinical Impression: Dementia Qualifiers: Dementia type: vascular dementia Dementia behavioral disturbance: without behavioral disturbance Qualified Code(s): F01.50 - Vascular dementia without behavioral disturbance Condition: Stable Prescriptions: No Action silodosin 8 mg capsule 8 mg PO DAILY Qty: 30 RF: 12 doxycycline hyclate 100 mg tablet See Rx Instructions .ROUTE .COMPLEX Qty: 60 RF: 1 multivitamin Tablet 1 tab PO DAILY RF: 0 Glucosamine Chondroitin 550-30-1 mg Capsule 1 cap PO DAILY RF: 0 simvastatin 20 mg tablet 20 mg PO BEDTIME RF: 0 gabapentin 100 mg capsule 100 mg PO DAILY RF: 0 Discharge Orders: Discharge ED (Routine); Ordered 07/21/21 Ordered By: Jaquan Atkinson Referrals: Tosin Munson [Primary Care Provider] - Discharge Diet: Usual diet Discharge Activity: Increase activity as tolerated Patient Instructions: Dementia (ED) Activity Restrictions/Additional Instructions: Follow-up your family medical doctor as discussed. Return the ER as needed. Coding Level of Care Code ED Enrollment Eligibility Representative for Yfn Fwd Exam Comprehensive
[2021-07-21 17:33] VITALS: BP 193/99; PULSE 83; RESP 18; TEMP 37.1; O2SAT 98
== END 2021-07-21 17:34 | disposition home or self-care (01) ==
PROVIDERS: Emergency Medicine; Emergency Provider Nurse Practitioner Family; PCP Family Medicine
DX: F01.50 Vascular dementia, unspecified severity, without behavioral disturbance, psychotic disturbance, mood disturbance, and anxiety (principal)
CPT/HCPCS: 70450; 80053; 85025; 99282

== ENCOUNTER 2021-10-05 06:55 | Outpatient (CLI) | payer MEDICARE, BC, SELFPAY ==
--- NOTE | 2021-10-05 07:05 | MR_ITS ---
WS: [id number] MRI HEAD WITHOUT CONTRAST TECHNIQUE: Sagittal T1, T2 axial, T2 axial FLAIR, axial and coronal T1 images, axial susceptibility w eighted imaging, axial diffusion weighted images, and coronal T2 images were obtained. CLINICAL INFORMATION: HX OF TIA AND STROKE COMPARISON: None. FINDINGS: No evidence restricted diffusion to suggest acute ischemia. Ventricular system and basal cisterns are patent. Moderate to advanced small vessel changes with moderate parenchymal volume loss. Small vesse l changes in the velia. Chronic lacunar infarct RIGHT cerebellum. Normal vascular flow voids at the sk ull base. No extra-axial fluid collections. Chronic lacunar infarcts bilateral basal ganglia and LEFT thalamus. Paranasal sinuses and mastoid air cells are well aerated. Normal optic chiasm and pituitary infundibulum. Moderate to advanced symmetr ic atrophy temporal lobes and hippocampal formations. A few foci of hemosiderin in the LEFT thalamus and RIGHT velia. MR/MR head wo con* [id number] IMPRESSION: 1. No evidence of restricted diffusion to suggest acute ischemia. 2. Moderate to advanced small vessel changes with moderate parenchymal volume loss. 3. Small vessel changes in the velia. 4. Chronic lacunar infarcts in the RIGHT cerebellum, bilateral basal ganglia a nd LEFT thalamus. 5. Moderate to advanced symmetric atrophy of the temporal lobes and hippocampa l formations. 6. A few small punctate foci of hemosiderin in the LEFT thalamus and RIGHT aminah s.
== END 2021-10-05 06:56 | disposition home or self-care (01) ==
LOC: RAD 06:59
PROVIDERS: PCP Family Medicine; Visit Provider Family Medicine
DX: Z86.73 Personal history of transient ischemic attack (TIA), and cerebral infarction without residual deficits (principal); I63.81 Other cerebral infarction due to occlusion or stenosis of small artery; G31.9 Degenerative disease of nervous system, unspecified
CPT/HCPCS: 70551

== ENCOUNTER → 2021-12-08 08:32 | Outpatient (BNVA) | payer MEDICARE, BC, SELFPAY | PROVIDERS: PCP Family Medicine; Visit Provider Specialist | DX: G30.9 Alzheimer's disease, unspecified (principal); F02.80 Dementia in other diseases classified elsewhere, unspecified severity, without behavioral disturbance, psychotic disturbance, mood disturbance, and anxiety; G37.9 Demyelinating disease of central nervous system, unspecified; Z86.73 Personal history of transient ischemic attack (TIA), and cerebral infarction without residual deficits | CPT/HCPCS: 82607; 82746; 96116; 99204; 99205 ==

== ENCOUNTER → 2022-03-14 14:28 | Outpatient (BNVA) | payer MEDICARE, BC, SELFPAY | PROVIDERS: PCP Family Medicine; Visit Provider Specialist | DX: G30.9 Alzheimer's disease, unspecified (principal); F02.80 Dementia in other diseases classified elsewhere, unspecified severity, without behavioral disturbance, psychotic disturbance, mood disturbance, and anxiety; G37.9 Demyelinating disease of central nervous system, unspecified | CPT/HCPCS: 99213; 99214 ==

== ENCOUNTER 2022-03-22 13:25 | Emergency (ER) | payer MEDICARE, BC, SELFPAY ==
--- NOTE | 2022-03-22 13:30 | ECG_ITS ---
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 Measurements Intervals [place] Rate: 69 P: 46 IL: 146 QRS: 33 QRSD: 110 T: -3 QT: 388 QTc: 417 Interpretive Statements SINUS RHYTHM WITH OCCASIONAL SUPRAVENTRICULAR PREMATURE COMPLEXES INDETERMINATE AXIS INCOMPLETE RIGHT BUNDLE BRANCH BLOCK [90+ ms QRS DURATION, TERMINAL R IN V1/V2, 40+ ms S IN I/aVL/V4/V5/V6] POSSIBLE INFERIOR MYOCARDIAL INFARCTION , PROBABLY OLD [30 ms Q WAVE IN II/aVF] Compared to ECG 03/04/2021 12:53:44 Indeterminate axis now present Incomplete right bundle-branch block now present Myocardial infarct finding now present Electronically Signed On 03-22-2022 17:49:45 CDT by Gelacio Masterson M.D. [email or web address]
[2022-03-22 13:32] VITALS: BP 133/78; PULSE 71; RESP 18; TEMP 36.8; O2SAT 98; BMI 25.0
--- NOTE | 2022-03-22 13:40 | XRR_ITS ---
PROCEDURE INFORMATION: Exam: XR Chest Exam date and time: 03/22/2022 1:44 PM Age: 81 years old Clinical indication: Pain; Angina pectoris; Additional info: Chest pain TECHNIQUE: Imaging protocol: Radiologic exam of the chest. Views: 1 view. COMPARISON: CR XR chest 1V portable [id number] 03/04/2021 10:30 AM FINDINGS: Lungs: Unremarkable. No consolidation. Pleural spaces: Unremarkable. No pleural effusion. No pneumothorax. 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 Bones/joints: Unremarkable. XR/XR chest 1V portable [id number] IMPRESSION: No acute findings.
[2022-03-22 13:55] LABS: Basophils # 0.1 10^3/uL (0.0-0.1); Eosinophils # 0.4 10^3/uL (0.0-0.8); Hematocrit 37.6 % (42.0-52.0); Lymphocytes # 2.4 10^3/uL (0.8-4.8); Lymphocytes % 38.2 %; Mean Corpuscular HGB Conc 31.9 g/dL (30.0-36.0); Mean Corpuscular Hemoglobin 29.2 pg (28.0-34.0); Mean Corpuscular Volume 91.5 fl (80-94); Mean Platelet Volume 10.3 fL (7.4-10.4); Monocytes # 0.7 10^3/uL (0.2-0.9); Monocytes % 11.5 %; Neutrophils # 2.63 10^3/uL (1.8-7.7); Neutrophils % 42.1 %; Nucleated Red Blood Cells % 0 %; Platelet Count 304 10^3/cmm (130-400); Red Blood Count 4.11 10^6/uL (4.1-5.3); Red Cell Distribution Width 15.2 % (12.1-15.1); White Blood Count 6.3 10^3/uL (4.0-10.0)
--- NOTE | 2022-03-22 14:03 | W.ED.CHESTPA ---
Documented by User: KATIE Go 03/22/22 16:10 HPI - Chest Pain General: Chief Complaint: Chest Pain Stated Complaint: chest pain Time Seen by Provider: 03/22/22 13:51 Source: patient and family Mode of arrival: ambulatory Limitations: no limitations History of Present Illness: Patient is a very nice 81-year-old gentleman here for complaints of intermittent chest pains over the past 3 to 4 days. Patient denies any provoking or exacerbating factors to his discomfort. His chest pain does not seem to be brought on by exertion. He states pain is located in the left side of his chest without radiation and seems to resolve on its own after a few hours. Patient has also noticed over the past several days that he becomes winded easily . He does not complain of any orthopnea or PND. He has not noticed any swelling to his lower extremities. He does not feel like his chest pain and shortness of breath coincide with one another. Patient denies any previous cardiac or pulmonary history. No smoking history. He does not have any recent stress test or echocardiogram testing (although in his chart he actually does have these tests on file and were completed 03/2021). PMH is significant for Alzheimer's disease, HTN, hypercholesterolemia, and BPH. MD complaint: chest pain Onset (ago): day(s) Timing of current episode: episodic Prior episodes: No Pain location: left chest Pain radiation: none Relieving factors: nothing Exacerbating factors: nothing Associated symptoms: Reports dyspnea (only with exertion ); Deny abdominal pain, fever(s), nausea, palpitations, syncope or vomiting Treatment prior to arrival: none Risk Factors: Coronary artery disease risk factors: hyperlipidemia and hypertension Review of Systems Const: Denies: fever(s), chills, body aches, fatigue or malaise Eyes: Denies: change in vision or blurry vision Card: Reports: chest pain and dyspnea on exertion; Denies: palpitations, irregular heart rhythm, edema, swelling of feet/ankles, lightheadedness, syncope, pre-syncope, orthopnea, leg pain with exertion or acrocyanosis Resp: Reports: dyspnea (only with exertion ); Denies: productive cough, non-productive cough, wheezing, pain on inspiration, hemoptysis or chest congestion GI: Denies: abdominal pain, nausea, vomiting, heartburn or diarrhea : Denies: flank pain, difficulty urinating or dysuria Musc: Denies: neck pain, back pain, extremity pain, extremity swelling, joint pain, joint swelling or joint redness Skin/Breast: Denies: rash Neuro: Denies: headache(s), numbness in extremities, weakness in extremities, sensory changes, difficulty walking or dizziness PFS ED PFSH: Medical History (Updated 03/23/22 @ 06:12 by Dg Telles DO) Alzheimer disease Arriaga's cyst, 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 Hypertension Urinary retention Surgical History (Updated 03/23/22 @ 06:11 by Dg Telles DO) History of circumcision History of lumbar laminectomy History of tonsillectomy Family History Father , at age 72 Cancer liver Mother , at age 75 Dementia Social History Smoking and tobacco status: never smoked Alcohol intake: never Marital status: Current occupational status: retired History of recent travel: No Physical Exam Const: COMMON NORMALS: no acute distress, average body habitus, patient oriented x3, no limitations, healthy appearing, alert and well nourished GENERAL APPEARANCE: cooperative ORIENTATION/CONSCIOUSNESS: Yes awake, Yes oriented to person, Yes oriented to place and Yes oriented to time HENMT: COMMON NORMALS: normocephalic and atraumatic HEAD & SCALP: normal to inspection, normocephalic and atraumatic Neck/C-Spine: COMMON NORMALS: full ROM, no lymphadenopathy, supple and no meningeal signs GENERAL: Yes normal visual inspection Chest: COMMONS NORMALS: normal inspection of the chest and normal palpation of entire chest wall Resp: COMMON NORMALS: normal respiratory effort and clear to auscultation bilaterally AUSCULTATION: clear to auscultation bilaterally Cardio: COMMON NORMALS: regular rate and regular rhythm RATE: regular rate RHYTHM: regular rhythm GI: COMMON NORMALS: Normal to inspection, nondistended, normoactive bowel sounds present, Soft to palpation, non-tender, No hepatosplenomegaly present and no masses PALPATION: Yes Soft to palpation and Yes No hepatosplenomegaly present : COMMON NORMALS: Yes no CVA tenderness BLADDER/KIDNEY EXAM: Yes no CVA tenderness Back/Pelvis: COMMON NORMALS: no CVA tenderness, thoracic and lumbar spine normal to inspection, no thoracic nor lumbar tenderness and thoraco-lumbar ROM normal Extremity: COMMON NORMALS: normal to inspection, full ROM, capillary refill normal, no joint enlargement, no clubbing, cyanosis or edema, no calf tenderness and no pedal edema GENERAL: Yes normal exam except as noted Neuro: ELBA COMA SCALE: document GCS findings Elba coma scale eye opening: Spontaneous Elba coma scale verbal response: Orientated Elba coma scale motor response: Obey commands Elba coma scale total score: 15 COMMON NORMALS: patient oriented x3, moves all extremities, no focal motor deficits and no sensory deficits noted SENSORIUM/ORIENTATION: Yes alert, Yes oriented to person, Yes oriented to place and Yes oriented to time MENINGEAL SIGNS: Yes no meningeal signs Skin: COMMON NORMALS: no rashes or lesions noted GENERAL SKIN EXAM: no rashes or lesions noted Course Vital Signs: Vital signs: Vital Signs Temperature 98.2 F 03/22/22 13:32 Pulse Rate 65 03/22/22 14:36 Respiratory Rate 17 03/22/22 14:36 Blood Pressure 143/92 03/22/22 14:36 Pulse Oximetry 98 03/22/22 14:36 Oxygen Delivery Me thod 03/22/22 14:36 MDM - Chest Pain Medical Decision Making Care for patient was initially started from one of our vertical flow rooms as there were no medical beds available. Once a bed became available patient was moved and physician will assume care. ES Lab Data : 03/22/22 13:47 03/22/22 13:47 Radiology Impressions Chest X-Ray 03/22/22 13:40 IMPRESSION: No acute findings. Laboratory Results WBC 6.3 10^3/uL (4.0-10.0) 03/22/22 13:47 RBC 4.11 10^6/uL (4.1-5.3) 03/22/22 13:47 Hgb 12.0 g/dL (11.7-16.6) 03/22/22 13:47 Hct 37.6 % (42.0-52.0) L 03/22/22 13:47 MCV 91.5 fl (80-94) 03/22/22 13:47 MCH 29.2 pg (28.0-34.0) 03/22/22 13:47 MCHC 31.9 g/dL (30.0-36.0) 03/22/22 13:47 RDW 15.2 % (12.1-15.1) H 03/22/22 13:47 Plt Count 304 10^3/cmm (130-400) 03/22/22 13:47 MPV 10.3 fL (7.4-10.4) 03/22/22 13:47 Neut % (Auto) 42.1 % 03/22/22 13:47 Lymph % (Auto) 38.2 % 03/22/22 13:47 Mccone % (Auto) 11.5 % 03/22/22 13:47 Eos % (Auto) 7.0 % 03/22/22 13:47 Baso % (Auto) 1.0 % 03/22/22 13:47 Neut # (Auto) 2.63 10^3/uL (1.8-7.7) 03/22/22 13:47 Lymph # (Auto) 2.4 10^3/uL (0.8-4.8) 03/22/22 13:47 Mccone # (Auto) 0.7 10^3/uL (0.2-0.9) 03/22/22 13:47 Eos # (Auto) 0.4 10^3/uL (0.0-0.8) 03/22/22 13:47 Baso # (Auto) 0.1 10^3/uL (0.0-0.1) 03/22/22 13:47 Nucleated RBC % (auto) 0 % 03/22/22 13:47 Nucleated RBCs # 0.0 /100WBC 03/22/22 13:47 Sodium 139 mmol/L (136-145) 03/22/22 13:47 Potassium 4.0 mmol/L (3.5-5.1) 03/22/22 13:47 Chloride 102 mmol/L (98-107) 03/22/22 13:47 Carbon Dioxide 27 mmol/L (22-29) 03/22/22 13:47 Anion Gap 14.0 (5-19) 03/22/22 13:47 BUN 22 mg/dL (8-23) 03/22/22 13:47 Creatinine 1.4 mg/dL (0.7-1.2) H 03/22/22 13:47 GFR Calculation Not Reportable 03/22/22 13:47 Glucose 111 mg/dL (65-115) 03/22/22 13:47 Calculated Osmolality 292 mOsm/kg (285-295) 03/22/22 13:47 Calcium 8.9 mg/dL (8.5-10.5) 03/22/22 13:47 Total Bilirubin 0.2 mg/dL (0.15-1.2) 03/22/22 13:47 AST 17 U/L (0-40) 03/22/22 13:47 ALT 13 U/L (0-41) 03/22/22 13:47 Alkaline Phosphatase 80 U/L (40-130) 03/22/22 13:47 Troponin T Baseline 17 ng/L (0-15) H 03/22/22 13:47 Troponin T 120 Minute 16.90 ng/L (0-15) H 03/22/22 15:29 Delta Troponin T -0.10 ABS# (0-10) L 03/22/22 15:29 Total Protein 7.7 g/dL (6.6-8.7) 03/22/22 13:47 Albumin 4.2 g/dL (3.5-5.2) 03/22/22 13:47 Globulin 3.5 g/dL (1.3-4.6) 03/22/22 13:47 Discharge Plan Discharge Patient Disposition: Home Clinical Impression: Atypical chest pain, Hypertension Condition: Stable Prescriptions: New Protonix 40 mg tablet,delayed release (DR/EC) 40 mg PO DAILY 56 Days Qty: 30 0RF No Action olmesartan 20 mg tablet 20 mg PO QAM galantamine 8 mg tablet 8 mg PO BID Qty: 60 2RF Rx Instructions: administer with AM and PM meals multivitamin Tablet 1 tab PO QAM Glucosamine Chondroitin 550-30-1 mg Capsule 1 cap PO DAILY PRN (Reason: unknown) simvastatin 20 mg tablet 20 mg PO BEDTIME Aspir-81 81 mg Tablet,Delayed Release (Dr/Ec) 81 mg PO QAM silodosin 8 mg capsule 8 mg PO QAM Rx Instructions: must administer with a meal/food melatonin 3 mg Capsule 3 mg PO BEDTIME Discharge Orders: Discharge ED (Routine); Ordered 03/22/22 Ordered By: Dg Telles Referrals: Tosin Munson DO [Primary Care Provider] - Discharge Diet: Usual diet Discharge Activity: Increase activity as tolerated Patient Instructions: Opioid Safety Activity Restrictions/Additional Instructions: Follow-up with your primary care doctor within the next 5 to 7 days to recheck blood pressure. 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 Patient denies any provoking or exacerbating factors to his discomfort. His chest pain does not seem to be brought on by exertion. He states pain is located in the left side of his chest without radiation and seems to resolve on its own after a few hours. Patient has also noticed over the past several days that he becomes winded easily . He does not complain of any orthopnea or PND. He has not noticed any swelling to his lower extremities. He does not feel like his chest pain and shortness of breath coincide with one another. Patient denies any previous cardiac or pulmonary history. No smoking history. He does not have any recent stress test or echocardiogram testing (although in his chart he actually does have these tests on file and were completed 03/2021). PMH is significant for Alzheimer's disease, HTN, hypercholesterolemia, and BPH. Patient initially seen assumed care of the patient when he arrived in the exam room. He denies having any chest pain at this time. It is very difficult to get him to identify any exacerbating or relieving activities to his symptoms. Reviewing his chart he did have a stress test done within the last year. He has some mild cognitive deficits. Stress test was unremarkable. Review of Systems Narrative: Concur with review concur with review of systems as documented by Annmarie Gottlieb. PFS ED PFSH: Medical History (Updated 03/23/22 @ 06:12 by Dg Telles DO) Alzheimer disease Arriaga's cyst, 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 Hypertension Urinary retention Surgical History (Updated 03/23/22 @ 06:11 by Dg Telles DO) History of circumcision History of lumbar laminectomy History of tonsillectomy Family History Father , at age 72 Cancer liver Mother , at age 75 Dementia Social History Smoking and tobacco status: never smoked Alcohol intake: never Marital status: Current occupational status: retired History of recent travel: No Physical Exam Const: GENERAL APPEARANCE: cooperative and comfortable ORIENTATION/CONSCIOUSNESS: Yes awake HENMT: COMMON NORMALS: normocephalic, atraumatic and hearing grossly normal bilaterally HEAD & SCALP: normocephalic and atraumatic Resp: COMMON NORMALS: normal respiratory effort, No retractions, No use of accessory muscles and clear to auscultation bilaterally AUSCULTATION: clear to auscultation bilaterally Cardio: COMMON NORMALS: regular rate, regular rhythm and No murmurs present (Cardio) RATE: regular rate RHYTHM: regular rhythm GI: COMMON NORMALS: Soft to palpation and No hepatosplenomegaly present AUSCULTATION: Yes normoactive bowel sounds PALPATION: Yes Soft to palpation, No Tenderness to palpation present (GI), No Guarding due to palpation present (GI) and Yes No hepatosplenomegaly present Extremity: COMMON NORMALS: normal to inspection, capillary refill normal, no clubbing, cyanosis or edema, no calf tenderness and no pedal edema Skin: COMMON NORMALS: no rashes or lesions noted GENERAL SKIN EXAM: no rashes or lesions noted Course Vital Signs: Vital signs: Vital Signs Temperature 98.2 F 03/22/22 13:32 Pulse Rate 65 03/22/22 14:36 Respiratory Rate 17 03/22/22 14:36 Blood Pressure 143/92 03/22/22 14:36 Pulse Oximetry 98 03/22/22 14:36 Oxygen Delivery Me thod 03/22/22 14:36 MDM - Chest Pain Medical Decision Making Care for patient was initially started from one of our vertical flow rooms as there were no medical beds available. Once a bed became available patient was moved and physician will assume care. ES At this point blood pressure at this time. We will go ahead and discharge him home he had a stress test within the last year which was negative do not think that needs to be repeated at this point. Would recommend that he follow-up with his primary care doctor within the next week we will add Protonix 40 mg twice daily. His creatinine is at its baseline the rest of his labs EKGs and imaging were reviewed. No significant findings noted. Medical Records I reviewed the patient's medical records. Lab Data I reviewed the patient's lab results. : 03/22/22 13:47 03/22/22 13:47 Radiology Impressions Chest X-Ray 03/22/22 13:40 IMPRESSION: No acute findings. Laboratory Results WBC 6.3 10^3/uL (4.0-10.0) 03/22/22 13:47 RBC 4.11 10^6/uL (4.1-5.3) 03/22/22 13:47 Hgb 12.0 g/dL (11.7-16.6) 03/22/22 13:47 Hct 37.6 % (42.0-52.0) L 03/22/22 13:47 MCV 91.5 fl (80-94) 03/22/22 13:47 MCH 29.2 pg (28.0-34.0) 03/22/22 13:47 MCHC 31.9 g/dL (30.0-36.0) 03/22/22 13:47 RDW 15.2 % (12.1-15.1) H 03/22/22 13:47 Plt Count 304 10^3/cmm (130-400) 03/22/22 13:47 MPV 10.3 fL (7.4-10.4) 03/22/22 13:47 Neut % (Auto) 42.1 % 03/22/22 13:47 Lymph % (Auto) 38.2 % 03/22/22 13:47 Mccone % (Auto) 11.5 % 03/22/22 13:47 Eos % (Auto) 7.0 % 03/22/22 13:47 Baso % (Auto) 1.0 % 03/22/22 13:47 Neut # (Auto) 2.63 10^3/uL (1.8-7.7) 03/22/22 13:47 Lymph # (Auto) 2.4 10^3/uL (0.8-4.8) 03/22/22 13:47 Mccone # (Auto) 0.7 10^3/uL (0.2-0.9) 03/22/22 13:47 Eos # (Auto) 0.4 10^3/uL (0.0-0.8) 03/22/22 13:47 Baso # (Auto) 0.1 10^3/uL (0.0-0.1) 03/22/22 13:47 Nucleated RBC % (auto) 0 % 03/22/22 13:47 Nucleated RBCs # 0.0 /100WBC 03/22/22 13:47 Sodium 139 mmol/L (136-145) 03/22/22 13:47 Potassium 4.0 mmol/L (3.5-5.1) 03/22/22 13:47 Chloride 102 mmol/L (98-107) 03/22/22 13:47 Carbon Dioxide 27 mmol/L (22-29) 03/22/22 13:47 Anion Gap 14.0 (5-19) 03/22/22 13:47 BUN 22 mg/dL (8-23) 03/22/22 13:47 Creatinine 1.4 mg/dL (0.7-1.2) H 03/22/22 13:47 GFR Calculation Not Reportable 03/22/22 13:47 Glucose 111 mg/dL (65-115) 03/22/22 13:47 Calculated Osmolality 292 mOsm/kg (285-295) 03/22/22 13:47 Calcium 8.9 mg/dL (8.5-10.5) 03/22/22 13:47 Total Bilirubin 0.2 mg/dL (0.15-1.2) 03/22/22 13:47 AST 17 U/L (0-40) 03/22/22 13:47 ALT 13 U/L (0-41) 03/22/22 13:47 Alkaline Phosphatase 80 U/L (40-130) 03/22/22 13:47 Troponin T Baseline 17 ng/L (0-15) H 03/22/22 13:47 Troponin T 120 Minute 16.90 ng/L (0-15) H 03/22/22 15:29 Delta Troponin T -0.10 ABS# (0-10) L 03/22/22 15:29 Total Protein 7.7 g/dL (6.6-8.7) 03/22/22 13:47 Albumin 4.2 g/dL (3.5-5.2) 03/22/22 13:47 Globulin 3.5 g/dL (1.3-4.6) 03/22/22 13:47 Discharge Plan Discharge Patient Disposition: Home Clinical Impression: Atypical chest pain, Hypertension Condition: Stable Prescriptions: New Protonix 40 mg tablet,delayed release (DR/EC) 40 mg PO DAILY 56 Days Qty: 30 0RF No Action olmesartan 20 mg tablet 20 mg PO QAM galantamine 8 mg tablet 8 mg PO BID Qty: 60 2RF Rx Instructions: administer with AM and PM meals multivitamin Tablet 1 tab PO QAM Glucosamine Chondroitin 550-30-1 mg Capsule 1 cap PO DAILY PRN (Reason: unknown) simvastatin 20 mg tablet 20 mg PO BEDTIME Aspir-81 81 mg Tablet,Delayed Release (Dr/Ec) 81 mg PO QAM silodosin 8 mg capsule 8 mg PO QAM Rx Instructions: must administer with a meal/food melatonin 3 mg Capsule 3 mg PO BEDTIME Discharge Orders: Discharge ED (Routine); Ordered 03/22/22 Ordered By: Dg Telles Referrals: Tosin Munson DO [Primary Care Provider] - Discharge Diet: Usual diet Discharge Activity: Increase activity as tolerated Patient Instructions: Opioid Safety Activity Restrictions/Additional Instructions: Follow-up with your primary care doctor within the next 5 to 7 days to recheck blood pressure. 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
[2022-03-22 14:15] LABS: Alanine Aminotransferase 13 U/L (0-41); Albumin Level 4.2 g/dL (3.5-5.2); Alkaline Phosphatase 80 U/L (40-130); Aspartate Amino Transferase 17 U/L (0-40); Blood Urea Nitrogen 22 mg/dL (8-23); Calcium 8.9 mg/dL (8.5-10.5); Carbon Dioxide 27 mmol/L (22-29); Chloride 102 mmol/L (98-107); Globulin 3.5 g/dL (1.3-4.6); Glucose 111 mg/dL (65-115); Osmolality Calculated 292 mOsm/kg (285-295); Sodium 139 mmol/L (136-145); Total Bilirubin 0.2 mg/dL (0.15-1.2); Total Protein 7.7 g/dL (6.6-8.7)
[2022-03-22 14:17] LABS: Troponin(5th) Baseline 17 ng/L (0-15)
[2022-03-22 14:36] VITALS: BP 143/92; PULSE 65; RESP 17; O2SAT 98
== END 2022-03-22 16:46 | disposition home or self-care (01) ==
PROVIDERS: Physician Assistant; Emergency Provider Family Medicine; PCP Family Medicine
DX: R07.89 Other chest pain (principal); I10 Essential (primary) hypertension; Z79.82 Long term (current) use of aspirin; G30.9 Alzheimer's disease, unspecified; F02.80 Dementia in other diseases classified elsewhere, unspecified severity, without behavioral disturbance, psychotic disturbance, mood disturbance, and anxiety
CPT/HCPCS: 36415; 71045; 80053; 84484; 85025; 93005; 99285

== ENCOUNTER → 2022-05-09 13:30 | Outpatient (BNVA) | payer MEDICARE, BC, SELFPAY | PROVIDERS: PCP Family Medicine; Visit Provider Urology | DX: N40.1 Benign prostatic hyperplasia with lower urinary tract symptoms (principal); N13.8 Other obstructive and reflux uropathy; G30.9 Alzheimer's disease, unspecified; G37.9 Demyelinating disease of central nervous system, unspecified; F02.80 Dementia in other diseases classified elsewhere, unspecified severity, without behavioral disturbance, psychotic disturbance, mood disturbance, and anxiety | CPT/HCPCS: 51798; 99213 ==

== ENCOUNTER 2022-09-26 07:46 | Emergency (ER) | payer MEDICARE, SELFPAY ==
[2022-09-26 07:53] VITALS: BP 119/64; PULSE 77; RESP 23; TEMP 36.5; O2SAT 94
--- NOTE | 2022-09-26 07:57 | XR_ITS ---
WS: [id number] Portable AP upright chest, 09/26/2022 Clinical Data: syncope Comparison: Portable chest, 03/22/2022 Findings: No nodules, masses or effusions are seen. The heart is normal. The pulmonary vascularity is not increased. No pneumonia or pneumothorax is seen. The aortic arch and descending thoracic aorta s how calcification and tortuosity. There is a retrocardiac hiatal hernia. There is a slight dextroscol iosis of the thoracic spine. There are old posterior lateral right sixth through eighth rib fractures . XR/XR chest 1V portable [id number] Impression: 1. Atherosclerosis. 2. Retrocardiac hiatal hernia.
--- NOTE | 2022-09-26 07:58 | W.ED.SYNCOPE ---
HPI - Syncope General: Chief Complaint: Syncope Stated Complaint: SYNCOPE Time Seen by Provider: 09/26/22 07:50 Source: patient Mode of arrival: EMS Limitations: no limitations History of Present Illness: Patient is a very nice 82-year-old male with a history of Alzheimer's dementia, HTN, BPH here after a possible syncopal episode. Patient states he was in the kitchen helping with breakfast when he began feeling lightheaded and dizzy. He felt like he was going to pass out so he slowly lowered himself to the floor. According to history from she believes that he did lose consciousness for a few seconds. There was no injury related to the syncopal episode. Patient states upon arrival to the ED he feels back to normal . Vitals upon arrival are stable. Patient does have history of multiple previous syncopal episodes by review of previous documentation. He was seen in the ED on 02/2021 for syncopal episode. He subsequently had a Holter monitor after that visit. Results were as follows: Conclusion: 1) The predominant rhythm was sinus rhythm to sinus tachycardia. 2) The Maximum Heart Rate recorded was 153 bpm, Day :46:48 am, the Minimum Heart Rate recorded was 62 bpm, Day :37:42 am and the Average Heart Rate was 82 bpm. 3) There were 209 PVCs with a burden of 0.09 %. 4) There were 701 PSVCs with a burden of 0.29 %. There were 4 occurrences of Supraventricular Tachycardia with the longest episode 8 beats, Day :46:51 am and the fastest episode 153 bpm, Day :46:51 am. 5) Diary events were entered. There were 2 Patient triggered events. Preliminary MD complaint: felt faint and almost passed out Onset (ago): minute(s) -: second(s) Prodromal symptoms: lightheaded Witnessed: Yes - by Other () Injuries sustained associated with event: none Associated symptoms: Reports no associated symptoms; Deny abdominal pain, chest pain, fever(s), headache(s), lightheadedness or nausea History: previous syncopal episode Review of Systems Const: Denies: fever(s), chills, body aches, fatigue or malaise Eyes: Denies: change in vision or blurry vision Card: Denies: chest pain, palpitations, irregular heart rhythm, edema, swelling of feet/ankles, lightheadedness, syncope, pre-syncope, dyspnea on exertion, orthopnea, leg pain with exertion or acrocyanosis Resp: Denies: dyspnea, productive cough, pain on inspiration or chest congestion GI: Denies: abdominal pain, nausea, vomiting, heartburn or diarrhea : Denies: difficulty urinating or dysuria Musc: Denies: neck pain, back pain or joint pain Skin/Breast: Denies: rash Neuro: Reports: dizziness (resolved now); Denies: headache(s), numbness in extremities, weakness in extremities, sensory changes, lack of coordination, difficulty walking, frequent falls, Slurred speech present or seizure-like activity PFSH ED PFSH: Medical History Alzheimer disease Arriaga's cyst, 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 BPH w urinary obs/LUTS Hypertension Urinary retention Surgical History History of circumcision History of lumbar laminectomy History of tonsillectomy Family History Father , at age 72 Cancer liver Mother , at age 75 Dementia Social History Smoking and tobacco status: never smoked Alcohol intake: never Marital status: Current occupational status: retired Physical Exam Const: COMMON NORMALS: no acute distress, average body habitus, patient oriented x3, no limitations, healthy appearing, alert and well nourished ORIENTATION/CONSCIOUSNESS: Yes awake, Yes oriented to person, Yes oriented to place and Yes oriented to time OTHER: baseline Alzheimer's dementia HENMT: COMMON NORMALS: normocephalic and atraumatic HEAD & SCALP: normal to inspection, normocephalic and atraumatic Eye: GENERAL EYE: appearance normal, both eyes and all related structures Neck/C-Spine: COMMON NORMALS: full ROM, no lymphadenopathy, supple and no meningeal signs Chest: COMMONS NORMALS: normal inspection of the chest and normal palpation of entire chest wall Resp: COMMON NORMALS: normal respiratory effort and clear to auscultation bilaterally AUSCULTATION: clear to auscultation bilaterally Cardio: COMMON NORMALS: regular rate and regular rhythm RATE: regular rate RHYTHM: regular rhythm GI: COMMON NORMALS: Normal to inspection, nondistended, normoactive bowel sounds present, Soft to palpation, non-tender, No hepatosplenomegaly present and no masses PALPATION: Yes Soft to palpation and Yes No hepatosplenomegaly present : COMMON NORMALS: Yes no CVA tenderness BLADDER/KIDNEY EXAM: Yes no CVA tenderness Back/Pelvis: COMMON NORMALS: no CVA tenderness and thoracic and lumbar spine normal to inspection Extremity: COMMON NORMALS: normal to inspection GENERAL: Yes normal exam except as noted Neuro: [place] COMA SCALE: document GCS findings [place] coma scale eye opening: Spontaneous [place] coma scale verbal response: Orientated [place] coma scale motor response: Obey commands [place] coma scale total score: 15 COMMON NORMALS: patient oriented x3, CN's II-XII intact bilaterally, moves all extremities, no focal motor deficits and no sensory deficits noted SENSORIUM/ORIENTATION: Yes alert, Yes oriented to person, Yes oriented to place and Yes oriented to time MENINGEAL SIGNS: Yes no meningeal signs Skin: COMMON NORMALS: no rashes or lesions noted GENERAL SKIN EXAM: no rashes or lesions noted Course Vital Signs: Vital signs: Vital Signs Temperature 97.7 F 09/26/22 07:53 Pulse Rate 72 09/26/22 09:39 Respiratory Rate 23 H 09/26/22 07:53 Blood Pressure 125/73 09/26/22 09:39 Pulse Oximetry 100 09/26/22 09:39 Oxygen Delivery Me thod 09/26/22 09:39 MDM - Syncope Medical Decision Making Patient is a nice 82-year-old male here for evaluation following a syncopal episode. Patient has had multiple syncopal episodes previously. He has had stress test, echocardiogram, ultrasound carotids, Holter monitor all within the last 2 years. Vital signs upon arrival. Upon arrival to the ED and during my initial examination patient tells me that he feels back to normal . ED work-up is fairly benign. He is slightly anemic with a hemoglobin of 9.5. Most recent was over 6 months ago. He does not complain of any bloody emesis or black/tarry stools. He has minor baseline elevations to his BUN/Cr. Initial troponin elevated at 16 which seems to be close to patient's baseline. He has a negative delta. CXR is normal. EKG showing sinus rhythm with a rate of 68 with no ischemic changes. At this point patient states he feels comfortable following up with his primary care provider which I think is acceptable. Can refer him to cardiology if needed. Return ED precautions given. Lab Data 09/26/22 08:15 09/26/22 08:15 Radiology Impressions Chest X-Ray 09/26/22 07:57 Impression: 1. Atherosclerosis. 2. Retrocardiac hiatal hernia. Laboratory Results WBC 6.1 10^3/uL (4.0-10.0) 09/26/22 08:15 RBC 3.59 10^6/uL (4.1-5.3) L 09/26/22 08:15 Hgb 9.5 g/dL (11.7-16.6) L 09/26/22 08:15 Hct 31.1 % (42.0-52.0) L 09/26/22 08:15 MCV 86.6 fl (80-94) 09/26/22 08:15 MCH 26.5 pg (28.0-34.0) L 09/26/22 08:15 MCHC 30.5 g/dL (30.0-36.0) 09/26/22 08:15 RDW 14.0 % (12.1-15.1) 09/26/22 08:15 Plt Count 327 10^3/cmm (130-400) 09/26/22 08:15 MPV 10.0 fL (7.4-10.4) 09/26/22 08:15 Neut % (Auto) 45.6 % 09/26/22 08:15 Lymph % (Auto) 37.3 % 09/26/22 08:15 [place] % (Auto) 10.2 % 09/26/22 08:15 Eos % (Auto) 5.3 % 09/26/22 08:15 Baso % (Auto) 1.3 % 09/26/22 08:15 Neut # (Auto) 2.77 10^3/uL (1.8-7.7) 09/26/22 08:15 Lymph # (Auto) 2.3 10^3/uL (0.8-4.8) 09/26/22 08:15 [place] # (Auto) 0.6 10^3/uL (0.2-0.9) 09/26/22 08:15 Eos # (Auto) 0.3 10^3/uL (0.0-0.8) 09/26/22 08:15 Baso # (Auto) 0.1 10^3/uL (0.0-0.1) 09/26/22 08:15 Nucleated RBC % (auto) 0 % 09/26/22 08:15 Nucleated RBCs # 0.0 /100WBC 09/26/22 08:15 Sodium 138 mmol/L (136-145) 09/26/22 08:15 Potassium 4.1 mmol/L (3.5-5.1) 09/26/22 08:15 Chloride 104 mmol/L (98-107) 09/26/22 08:15 Carbon Dioxide 23 mmol/L (22-29) 09/26/22 08:15 Anion Gap 15.1 (5-19) 09/26/22 08:15 BUN 25 mg/dL (8-23) H 09/26/22 08:15 Creatinine 1.4 mg/dL (0.7-1.2) H 09/26/22 08:15 GFR Calculation Not Reportable 09/26/22 08:15 Glucose 131 mg/dL (65-115) H 09/26/22 08:15 Calculated Osmolality 292 mOsm/kg (285-295) 09/26/22 08:15 Calcium 8.7 mg/dL (8.5-10.5) 09/26/22 08:15 Total Bilirubin 0.3 mg/dL (0.15-1.2) 09/26/22 08:15 AST 16 U/L (0-40) 09/26/22 08:15 ALT 11 U/L (0-41) 09/26/22 08:15 Alkaline Phosphatase 73 U/L (40-130) 09/26/22 08:15 Troponin T Baseline 16 ng/L (0-15) H 09/26/22 08:15 Troponin T 120 Minute 14.38 ng/L (0-15) 09/26/22 09:51 Delta Troponin T -1.62 ABS# (0-10) L 09/26/22 09:51 Total Protein 6.8 g/dL (6.6-8.7) 09/26/22 08:15 Albumin 4.0 g/dL (3.5-5.2) 09/26/22 08:15 Globulin 2.8 g/dL (1.3-4.6) 09/26/22 08:15 Discharge Plan Discharge Patient Disposition: Home Clinical Impression: Syncope Qualifiers: Syncope type: unspecified Qualified Code(s): R55 - Syncope and collapse Condition: Stable Prescriptions: No Action silodosin 8 mg capsule 8 mg PO QAM Qty: 90 3RF Rx Instructions: must administer with a meal/food olmesartan 20 mg tablet 20 mg PO QAM galantamine 8 mg tablet 8 mg PO BID 90 Days Qty: 180 3RF Rx Instructions: administer with AM and PM meals multivitamin Tablet 1 tab PO QAM Glucosamine Chondroitin 550-30-1 mg Capsule 1 cap PO DAILY PRN (Reason: unknown) simvastatin 20 mg tablet 20 mg PO BEDTIME Aspir-81 81 mg Tablet,Delayed Release (Dr/Ec) 81 mg PO QAM melatonin 3 mg Capsule 3 mg PO BEDTIME Discharge Orders: Discharge ED (Routine); Ordered 09/26/22 Ordered By: Annmarie Gottlieb Referrals: Yaima Ji MD [Primary Care Provider] - Patient Instructions: Syncope (DC) Activity Restrictions/Additional Instructions: As we discussed please follow-up with your primary care provider Dr. Yaima Ji this week as possible for further evaluation/treatment of syncope. As we discussed she may refer you to cardiology if indicated. 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
[2022-09-26] MEDS: sodium chloride 0.9% 1,000 ML 999 ML IV (08:03)
--- NOTE | 2022-09-26 08:04 | ECG_ITS ---
[facility] Test Date: 2022-09-26 Pat Name: Marquise Leon Department: Room: Gender: Male Technical Adjuster: : 1940 Requested By: Annmarie Gottlieb Order Number: [id number] Pawan MD: Gelacio Masterson M.D. Measurements Intervals [place] Rate: 68 P: 41 NC: 148 QRS: -37 QRSD: 109 T: 4 QT: 398 QTc: 425 Interpretive Statements SINUS RHYTHM LEFT AXIS DEVIATION [QRS AXIS < -30] Compared to ECG 03/22/2022 13:30:21 Left-axis deviation now present Indeterminate axis no longer present Incomplete right bundle-branch block no longer present Myocardial infarct finding no longer present Electronically Signed On 09-26-2022 17:30:34 [facility]ITAL[facility] by Gelacio Masterson M.D. [id number]
[2022-09-26 08:26] LABS: Basophils # 0.1 10^3/uL (0.0-0.1); Basophils % 1.3 %; Eosinophils # 0.3 10^3/uL (0.0-0.8); Eosinophils % 5.3 %; Hematocrit 31.1 % (42.0-52.0); Hemoglobin 9.5 g/dL (11.7-16.6); Lymphocytes # 2.3 10^3/uL (0.8-4.8); Lymphocytes % 37.3 %; Mean Corpuscular HGB Conc 30.5 g/dL (30.0-36.0); Mean Corpuscular Hemoglobin 26.5 pg (28.0-34.0); Mean Corpuscular Volume 86.6 fl (80-94); Monocytes # 0.6 10^3/uL (0.2-0.9); Monocytes % 10.2 %; Neutrophils # 2.77 10^3/uL (1.8-7.7); Neutrophils % 45.6 %; Nucleated Red Blood Cells % 0 %; Platelet Count 327 10^3/cmm (130-400); Red Blood Count 3.59 10^6/uL (4.1-5.3); White Blood Count 6.1 10^3/uL (4.0-10.0)
[2022-09-26 08:44] LABS: Alanine Aminotransferase 11 U/L (0-41); Alkaline Phosphatase 73 U/L (40-130); Anion Gap 15.1 (5-19); Aspartate Amino Transferase 16 U/L (0-40); Blood Urea Nitrogen 25 mg/dL (8-23); Calcium 8.7 mg/dL (8.5-10.5); Carbon Dioxide 23 mmol/L (22-29); Chloride 104 mmol/L (98-107); Globulin 2.8 g/dL (1.3-4.6); Glucose 131 mg/dL (65-115); Osmolality Calculated 292 mOsm/kg (285-295); Potassium 4.1 mmol/L (3.5-5.1); Sodium 138 mmol/L (136-145); Total Bilirubin 0.3 mg/dL (0.15-1.2); Total Protein 6.8 g/dL (6.6-8.7)
[2022-09-26 08:45] LABS: Troponin(5th) Baseline 16 ng/L (0-15)
[2022-09-26 09:39] VITALS: BP 125/73; PULSE 72; O2SAT 100
[2022-09-26 10:21] LABS: Troponin 5 2HR 14.38 ng/L (0-15)
[2022-09-26 10:29] LABS: Troponin 5 2HR Delta -1.62 ABS# (0-10)
[2022-09-26 10:47] VITALS: BP 138/84; PULSE 76; O2SAT 98
== END 2022-09-26 10:56 | disposition home or self-care (01) ==
PROVIDERS: Emergency Provider Physician Assistant; PCP Family Medicine
DX: R55 Syncope and collapse (principal); Z79.82 Long term (current) use of aspirin; I70.90 Unspecified atherosclerosis; K44.9 Diaphragmatic hernia without obstruction or gangrene; G30.9 Alzheimer's disease, unspecified; F02.80 Dementia in other diseases classified elsewhere, unspecified severity, without behavioral disturbance, psychotic disturbance, mood disturbance, and anxiety; I10 Essential (primary) hypertension
CPT/HCPCS: 71045; 80053; 84484; 85025; 93005; 99285; J7030

== ENCOUNTER → 2022-09-28 08:00 | Outpatient (BNVA) | payer MEDICARE, SELFPAY | PROVIDERS: PCP Family Medicine; Visit Provider Specialist | DX: G30.9 Alzheimer's disease, unspecified (principal); F02.80 Dementia in other diseases classified elsewhere, unspecified severity, without behavioral disturbance, psychotic disturbance, mood disturbance, and anxiety; R55 Syncope and collapse; G37.9 Demyelinating disease of central nervous system, unspecified; N40.1 Benign prostatic hyperplasia with lower urinary tract symptoms; N13.8 Other obstructive and reflux uropathy | CPT/HCPCS: 96116; 99215 ==

== ENCOUNTER 2023-03-30 15:07 | Oncology outpatient (recurring) (ONCR) | payer MEDICARE, SELFPAY ==
--- OUTSIDE RECORDS SUMMARY | 2023-03-23 10:35 | XMS_ITS | Continuity of Care Document ---
Author Name Unknown Organization [facility] Address [address] [place] [address]- Care Team Providers Care Greenhouse Grower Name Role Phone Yaima Ji MD Primary Care Physician [phone] Yaima Ji MD Primary Care Physician [phone] Encounter 12/02/22 - 12/03/22 [facility] [address] [place] [address]- [place] Attending Physician: Adin Lawton Allergies, Adverse Reactions, Alerts No Known Allergies Assessment and Plan Future Appointments Appointment Date:04/17/2023 08:00:00 AM Scheduled Provider:Yaima Ji MD Location:[facility] Appointment Type:Established Patient Future Scheduled Tests Laboratory* CBC-d 11/22/22 * Iron Serum 11/22/22 Immunizations Given and Recorded Vaccine Date Status Refusal Reason influenza virus vaccine 05/02/22 Given influenza virus vaccine 04/29/21 Recorded influenza virus vaccine 06/17/19 Given influenza virus vaccine 06/11/18 Given influenza virus vaccine 05/22/17 Given influenza virus vaccine 05/17/16 Given influenza virus vaccine 05/27/10 Given COVID-19 SARS-CoV-2 mRNA-1273 Moderna 06/28/21 Rec orded COVID-19 SARS-CoV-2 mRNA-1273 Moderna 11/09/20 Rec orded COVID-19 SARS-CoV-2 mRNA-1273 Moderna 10/12/20 Rec orded Prevnar 13 pneumococcal 13-valent 07/19/19 Given Tdap-ADULT/ADOL tetanus/diphth/pertuss,a 10/17/14 Given Tdap-ADULT/ADOL tetanus/diphth/pertuss,a 03/31/10 Given tetanus-diphth toxoids (Td) adult/adol 02/22/10 Gi ebonie tetanus-diphth toxoids (Td) adult/adol 12/27/99 Gi ebonie Pneumovax 23 pneumococcal 23-valent 12/20/07 Given Medications aspirin 81 mg, By mouth, Daily, # 90 tab, Refill(s) 0 Start Date: 10/06/22 Status: Ordered Centrum Silver 1 tab, By mouth, Daily, lasdt dose 01/20/21, Refill(s) 0 Start Date: 04/16/15 Status: Ordered doxepin 3 mg oral tablet = 1 tab, By mouth, at bedtime, # 14 tab, Refill(s) 2, Pharmacy: [facility], [facility]-[id number], TAKE ONE TABLET BY MOUTH AT BEDTIME, 77.73, 11/22/22 9:00:00 CDT, kg, Weight Start Date: 11/28/22 Status: Ordered ferrous sulfate 325 mg (65 mg elemental iron) oral delayed release tablet 325 mg = 1 tab, By mouth, BID, # 30 tab, Refill(s) 0 Start Date: 10/07/22 Status: Ordered galantamine 8 mg oral tablet 8 mg = 1 tab, By mouth, BID, # 60 tab, Refill(s) 0, other Start Date: 04/07/22 Status: Ordered olmesartan 20 mg oral tablet = 1 tab, By mouth, Daily, # 90 tab, Refill(s) 0, Pharmacy: [facility], NCP_ID-[id number], TAKE ONE TABLET BY MOUTH DAILY, 76.48, 10/06/22 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, kg, 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 Start Date: 11/15/22 Status: Ordered pantoprazole 40 mg oral delayed release tablet 40 mg = 1 tab, By mouth, Daily, # 30 tab, Refill(s) 3, Pharmacy: [facility], [facility]ID-[id number], 1 tab By mouth Daily, 76.48, 10/06/22 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, kg, Weight Start Date: 11/01/22 Status: Ordered ProAir HFA 108 (90 mcg base)/inh inhalation aerosol 2 puff, Inhalation, Q6H, for wheezing, # 1 EA, Refill(s) 6, Route to Pharmacy Electronically, Pharmacy: [facility], NCPDP_ID-[id number], 2 puff Inhalation Q6H,PRN:for wheezing, 74.09, 04/07/2213:37:00 CDT, kg, Weight Start Date: 04/07/22 Status: Ordered silodosin 8 mg oral capsule = 1 cap, By mouth, Daily, # 30 cap, Refill(s) 11, Pharmacy: [facility], AKPDP_[id number],1 cap By mouth Daily, 75.23, 09/23/22 10:47:00 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, kg, Weight Start Date: 09/23/22 Status: Ordered simvastatin 20 mg oral tablet = 1 tab, By mouth, at bedtime, # 90 tab, Refill(s) 5, Pharmacy: [facility], NCPDP_ID-[id number], TAKE 1 TABLET BY MOUTH AT BEDTIME, 66.5, 12/24/19 11:42:00 CDT, in, 76.82, 12/19/19 9:21:00 CDT, kg, Weight Start Date: 01/02/20 Status: Ordered triamcinolone topical 0.1% cream 1 application, Topical, BID, # 30 g, Refill(s) 0, Route to Pharmacy Electronically, Pharmacy: [facility], NCPDP_ID-[id number], 1 application Topical BID, 74.09, 04/07/22 13:37:00 CDT, kg, Weight Start Date: 04/07/22 Status: Ordered Problem List Condition Confirmation Course Effective Dates Status H ealth Status Informant Anemia due to blood loss Confirmed Active Acute URI Confirmed Active Back pain Confirmed 04/18/14 Active BPH (benign prostatic hyperplasia) Confirmed Active CVA (cerebrovascular accident) Confirmed Active Chest pain Confirmed Active Lumbar stenosis Confirmed Active Diarrhea Confirmed Active Dizziness Confirmed Active Duodenal ulcer Confirmed Active Dyspnea Confirmed Active Eczema Confirmed 09/28/11 Active Rash Confirmed Active GI bleed Confirmed Active S/P lumbar laminectomy Confirmed Active Hyperlipidemia Confirmed 09/02/10 Active HTN (hypertension) Confirmed 02/22/10 Active Fecal incontinence Confirmed Active Neurodermatitis Confirmed Active Internal hemorrhoid Confirmed Active Lumbar radiculopathy Confirmed Active Melanoma Confirmed Active Mild memory disturbance Confirmed Active Frequent PVCs Confirmed Active Near syncope Confirmed Active Acute colitis Confirmed Active Nonsustained ventricular tachycardia Confirmed Active Occult blood in stools Confirmed Active Open wound Confirmed Active DJD (degenerative joint disease) Confirmed 12/13/07 Active Knee osteoarthritis Confirmed Active Postural dizziness with presyncope Confirmed Active Herniated lumbar intervertebral disc Confirmed Active Vaccine for streptococcus pneumoniae and influenza Confirmed Active Urinary retention Confirmed Active Sciatica Confirmed Active Sinus infection Confirmed Active Skin lesion Confirmed Active Syncope Confirmed Active Need for pneumococcal vaccine Confirmed Active Procedures Procedure Date Related Diagnosis Body Site Status MRI of the brain 1 10/05/21 [facility] Carotid Dopplers 2 04/02/21 [facility] Nuclear medicine stress test 3 03/29/21 Completed Colonoscopy 4 11/06/18 Completed EGD 04/05/17 Completed colonoscopy 09/19/14 Completed Bilateral Knee - Arriaga's Cyst Completed Tonsillectomy Completed 1No evidence of restricted diffusion to suggest acute ischemia. Moderate to advanced small-vessel changes with moderate apparent time will volume loss. Small vessel changes in the velia. Chronic lacunar infarcts in the right cerebellum, bilateral basal ganglia and left thalamus. Moderate to advanced s ymmetric atrophy of the temporal lobes and hippocampal formations. A few small punctate foci of hemosiderin in the left thalamus and right velia 2Bilateral internal carotid artery stenosis less than 50%. Mild carotid atherosclerosis in the bifurcations. 3Myocardial perfusion imaging is normal. This study is low probability for obstructive coronary artery disease. EKG segment will be documented separately. 4auto-populated from documented surgical case Social History Social History Type Response Smoking Status Never smoker; Smokel ess tobacco use: Never; Has the patient smoked in the last 365 days, even once? No entered on: 04/07/22 Sex Male Patient Care team information Care Team Personnel Name: Yaima Ji MD Position: Physician - Family Practice Member Role: Primary Care Physician Address: Address: [address] [place] [address]- Name: Adin Lawton Position: [facility] Service: Orthopaedics Member Role: Attending Physician Address: Address: [address] [place] [address]- Care Team Related Persons Name: YUE LYON Name: BOGDAN LYON Address: [address] [place] [address] Name: COREY LYON
--- OUTSIDE RECORDS SUMMARY | 2023-03-23 10:35 | XMS_ITS | Continuity of Care Document ---
Author Name Unknown Organization Counts include 234 beds at the [facility] Address [address] [place] [address]- Care Team Providers Care Electrocardiograph Operator Name Role Phone Yaima Ji MD Primary Care Physician [phone] Yaima Ji MD Primary Care Physician [phone] Encounter 10/20/22 - 10/21/22 [facility] [address] [place] [address]- [place] Encounter Diagnosis Anemia due to blood loss(Discharge Diagnosis) - 10/18/22 Anemia due to blood loss(Discharge Diagnosis) - 10/20/22 GI bleed(Discharge Diagnosis) - 10/20/22 Attending Physician: Yaima Ji MD Allergies, Adverse Reactions, Alerts No Known Allergies Assessment and Plan Future Appointments Appointment Date:12/02/2022 10:00:00 AM Scheduled Provider:Adin Lawton Location:[facility] Appointment Type:Established Patient Appointment Date:12/12/2022 01:30:00 PM Scheduled Provider:Adin Lawton Location:[facility] Appointment Type:Established Patient Appointment Date:12/20/2022 07:15:00 AM Scheduled Provider: Location:[facility] Surgery Appointment Type:Surgery Appointment Date:01/05/2023 01:30:00 PM Scheduled Provider:Adin Lawton Location:[facility] Appointment Type:Hospital Follow Up (Established) Appointment Date:04/17/2023 08:00:00 AM Scheduled Provider:Yaima Ji MD Location:[facility] Appointment Type:Established Patient Immunizations Given and Recorded Vaccine Date Status [...] mouth, at bedtime, # 14 tab, Refill(s) 0, Pharmacy: [facility], ARPDP_ID-[id number], TAKE ONE TABLET BY MOUTH AT BEDTIME, 76.48, 10/06/22 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, kg, Weight Start Date: 10/10/22 Status: Ordered ferrous sulfate 325 mg (65 [...] Daily, # 90 tab, Refill(s) 0, Pharmacy: [facility], ARPDP_ID-[id number], TAKE ONE TABLET BY MOUTH DAILY, 76.48, 10/06/22 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, kg, Weight Start Date: 10/13/22 Status: Ordered ProAir HFA 108 (90 mcg base)/inh inhalation aerosol 2 puff, Inhalation, Q6H, for wheezing, # 1 EA, Refill(s) 6, Route to Pharmacy Electronically, Pharmacy: [facility], ARPDP_ID-[id number], 2 puff Inhalation Q6H,PRN:for wheezing, 74.09, 04/07/2213:37:00 CDT, kg, Weight Start Date: 04/07/22 Status: Ordered silodosin 8 mg oral capsule = 1 cap, By mouth, Daily, # 30 cap, Refill(s) 11, Pharmacy: [facility], COUNTS [facility]S [facility]-[id number],1 cap By mouth Daily, 75.23, 09/23/22 10:47:00 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, kg, Weight Start Date: 09/23/22 Status: Ordered simvastatin 20 mg oral tablet = 1 tab, By mouth, at bedtime, # 90 tab, Refill(s) 5, Pharmacy: [facility], NCPDP_ID-[id number], TAKE 1 TABLET BY MOUTH AT BEDTIME, 66.5, 12/24/19 11:42:00 CDT, in, 76.82, 12/19/19 9:21:00 CDT, kg, Weight Start Date: 01/02/20 Status: Ordered triamcinolone topical 0.1% cream 1 application, Topical, BID, # 30 g, Refill(s) 0, Route to Pharmacy Electronically, Pharmacy: [facility], ARPDP_ID-[id number], 1 application Topical BID, 74.09, 04/07/22 13:37:00 [...] Status MRI of the brain 1 10/05/21 [facility] Carotid Dopplers 2 04/02/21 [facility] Nuclear medicine stress test 3 03/29/21 [...] documented separately. 4auto-populated from documented surgical case Results Laboratory List Name Date Occult Blood - Interface (guaiac, NOT fo r screening) 10/20/22 Most recent to oldest [Reference Range]: 1 Rapid Fecal Occult Blood [NEG] 2 POS - 1 NEG 1 *ABN* (10/20/22 3:15 PM) 1Result Comment: Performed at:[facility], [address] [place], [address] Social History Social History Type Response Smoking Status Never smoker; Smokel ess tobacco use: Never; Has the patient smoked in the last 365 days, even once? No entered on: 04/07/22 Sex Male Patient Care team information Care Team Personnel Name: Yaima Ji MD Position: PX Physician - Family Practice Member Role: Primary Care Physician Address: Address: [address] [place] [address]- Care Team Related Persons Name: YUE LYON Name: BOGDAN LYON Address: [address] [place] [address] Name: COREY LYON
--- OUTSIDE RECORDS SUMMARY | 2023-03-23 10:35 | XMS_ITS | Continuity of Care Document ---
Author Name Unknown Organization [facility] Address [address] [place] [address]- Care Team Providers Care Termite Control Representative Name Role Phone Yaima Ji MD Primary Care Physician [phone] Yaima Ji MD Primary Care Physician [phone] Encounter 10/06/22 - 10/07/22 [facility] [address] [facility] [place] [address]- [place] Encounter Diagnosis Anemia due to blood loss(Discharge Diagnosis) - 10/06/22 Acute colitis(Discharge Diagnosis) - 10/06/22 Syncope(Discharge Diagnosis) - 10/06/22 Frequent PVCs(Discharge Diagnosis) - 10/06/22 Encounter for screening for other disorder(Discharge Diagnosis) - 10/06/22 Attending Physician: Yaima Ji MD Allergies, Adverse Reactions, Alerts No Known Allergies Assessment and Plan Extracted from: Title:Office Visit - Comprehensive Author:Yaima Bowles MD Date:10/06/22 Acute colitis(Noninfective g astroenteritis and colitis, unspecified: K52.9) Check??stool for blood?? Ordered: Occult Blood (guaiac, NOT for screening) Office Visit Level 4 Established 30-39 min 19539 ?? 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 Ordered: Occult Blood (guaiac, NOT for screening) Office Visit Level 4 Established 30-39 min 81691 ?? 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 Patient previously??had 1 about??2 years ago??which??showed??multiple??PVCs. ? Ordered: Miscellaneous Procedure/Service, event monitor 2 week Office Visit Level 4 Established 30-39 min 06369 ?? Syncope(Syncope and collapse: R55) Ordered: Miscellaneous Procedure/Service, event monitor 2 week Office Visit Level 4 Established 30-39 min 01958 ?? Orders: BMP CBC-d Iron Serum Future Appointments Appointment Date:10/20/2022 02:00:00 PM Scheduled Provider: Location:[facility] Latisha Thao Appointment Type:Lab Appointment Date:12/02/2022 10:00:00 AM Scheduled Provider:Adin Lawton Location:[facility] Appointment Type:Established Patient Appointment Date:12/12/2022 01:30:00 PM Scheduled Provider:Adin Lawton Location:[facility] Appointment Type:Established Patient Appointment Date:12/20/2022 07:15:00 AM Scheduled Provider: Location[place] Appointment Type:Surgery Appointment Date:01/05/2023 01:30:00 PM Scheduled Provider:Adin Lawton Location:[facility] Appointment Type:Hospital Follow Up (Established) Appointment Date:04/17/2023 08:00:00 AM Scheduled Provider:Yaima Ji MD Location:[facility] Latisha Thao Appointment Type:Established Patient Future Scheduled Tests Laboratory* Occult Blood (guaiac, NOT for screening) 10/06/22 Immunizations Given and Recorded Vaccine Date Status [...] Status: Ordered doxepin 3 mg oral tablet 3 mg = 1 tab, By mouth, at bedtime, # 14 tab, Refill(s) 0, Pharmacy: [facility], [facility]ID-[id number], 1 tab By mouth at bedtime, 75.23, 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09, 04/07/2213:37:00 CDT, kg, Weight Start Date: 04/07/22 Status: Ordered silodosin 8 mg oral capsule = 1 cap, By mouth, Daily, # 30 cap, Refill(s) 11, Pharmacy: [facility], [facility]_ID-[id number],1 cap By mouth Daily, 75.23, 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, kg, 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 Start Date: 09/23/22 Status: Ordered simvastatin 20 mg oral tablet = 1 tab, By mouth, at bedtime, # 90 tab, Refill(s) 5, Pharmacy: [facility], [facility]_ID-[id number], TAKE 1 TABLET BY MOUTH AT BEDTIME, 66.5, 12/24/19 11:42:00 CDT, in, 76.82, 12/19/19 9:21:00 CDT, kg, Weight Start Date: 01/02/20 Status: Ordered triamcinolone topical 0.1% cream 1 application, Topical, BID, # 30 g, Refill(s) 0, Route to Pharmacy Electronically, Pharmacy: [facility], [facility]_ID-[id number], 1 application Topical BID, 74.09, 04/07/22 13:37:00 [...] Eczema Confirmed 09/28/11 Active Rash Confirmed Active S/P lumbar laminectomy Confirmed Active [...] Status MRI of the brain 1 10/05/21 [facility] Carotid Dopplers 2 04/02/21 [facility] Nuclear medicine stress test 3 03/29/21 [...] documented separately. 4auto-populated from documented surgical case Vital Signs Most recent to oldest [Reference Range]: 1 Blood Pressure 132/70 (10/06/22 2:52 PM) Height (inches) (Clinical) 69 in (10/06/22 2:52 PM) Weight (kg) (Clinical) 76.48 kg (10/06/22 2:52 PM) BMI (Clinical) 24.8 kg/m2 (10/06/22 2:52 PM) Social History Social History Type Response Smoking Status Never smoker; Smokel ess tobacco use: Never; Has the patient smoked in the last 365 days, even once? No entered on: 04/07/22 Sex Male Family medicine Note * Margy SCHULTZ, Yaima Keita: PERFORM Event Display: Family Practice Office/Clinic Note Authored Date: [id number] Chief Complaint [facility] ER follow up syncopy ??episode has not had any recent episodes of syncope , states he has some vertigo if he stands to quickly General Information Information Given By: Patient (10/06/22 14:52:00) Nurse Intake Nursing Intake?? General Information?? Pain Information?? Physicians and Specialties: Dr. Munson- PCP (10/06/22) Pain Present: No actual or suspected pain (10/06/22) Information Given By: Patient (10/06/22) ?? History of Present Illness He passed out in the morning a few days ago.?? He was on the kitchen floor, bowels moved.?? No evidence of seizure.?? He feels ok now.?? He has not??had any further syncope. ??Reviewed??the emergency??room note today??and the patient was notably anemic??with a??hemoglobin of 9.5 in the ER.?? Other??labs looked okay.?? He did not have any evidence??of abdominal??pain,??no dark??stools that??he complained of.?? He??does have some chronic diarrhea??which??has been unchanged recently.?? He states??that he??does take??Imodium??occasionally which??is helpful.? Review of Systems Patient denies significant change in weight, headaches, vision changes, rashes, respiratory symptoms, chest pain, GI symptoms, joint pains, urinary symptoms, and depressive symptoms. Physical Exam Vitals & Measurements HR:??76?? BP:??132/70?? HT:??69??in?? WT:??76.48??kg?? WT:??168.25??lb?? BMI:??24.8?? General: In no acute distress. Alert & oriented. Behavior and affect appropriate to situation Skin: Warm and dry with no rash or suspicious lesions noted. CV: Regular rate and rhythm without murmur. Chest: Respirations even and unlabored. Lungs clear to auscultation. No rhonchi. No crackles. No wheezing. ?? Assessment/Plan Acute colitis(Noninfective gastroenteritis and colitis, unspecified: K52.9) Check??stool for blood?? Ordered: Occult Blood (guaiac, NOT for screening) Office Visit Level 4 Established 30-39 min 69657 ?? 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 Ordered: Occult Blood (guaiac, NOT for screening) Office Visit Level 4 Established 30-39 min 90858 ?? 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 Patient previously??had 1 about??2 years ago??which??showed??multiple??PVCs. ? Ordered: Miscellaneous Procedure/Service, event monitor 2 week Office Visit Level 4 Established 30-39 min 96900 ?? Syncope(Syncope and collapse: R55) Ordered: Miscellaneous Procedure/Service, event monitor 2 week Office Visit Level 4 Established 30-39 min 51818 ?? Orders: BMP CBC-d Iron Serum Problem List/Past Medical History Anemia due to blood loss: ?? Acute URI: ?? Back pain: ?? BPH (benign prostatic hyperplasia): ?? CVA (cerebrovascular accident): ?? Chest pain: ?? Lumbar stenosis: ?? Diarrhea: ?? Dizziness: ?? Duodenal ulcer: ?? Dyspnea: ?? Eczema: ?? Rash: ?? S/P lumbar laminectomy: ?? Hyperlipidemia: ?? HTN (hypertension): ?? Fecal incontinence: ?? Neurodermatitis: ?? Internal hemorrhoid: ?? Lumbar radiculopathy: ?? Melanoma: ?? Mild memory disturbance: ?? Frequent PVCs: ?? Near syncope: ?? Acute colitis: ?? Nonsustained ventricular tachycardia: ?? Occult blood in stools: ?? Open wound: ?? DJD (degenerative joint disease): ?? Knee osteoarthritis: ?? Postural dizziness with presyncope: ?? Herniated lumbar intervertebral disc: ?? Vaccine for streptococcus pneumoniae and influenza: ?? Urinary retention: ?? Sciatica: ?? Sinus infection: ?? Skin lesion: ?? Syncope: ?? Need for pneumococcal vaccine: ?? Procedure/Surgical History ???MRI of the brain (10/05/2021)???Carotid Dopplers (04/02/2021)???Nuclear medicine stress test (03/29/2021)???Colonoscopy (11/06/2018)???EGD (04/05/2017)???colonoscopy (09/19/2014)???Bilateral Knee - Arriaga's Cyst???Tonsillectomy Medications Home Medications (9) Active aspirin??81 mg,Start_date: 10/06/22,Refills: 0, By mouth, Daily Centrum Silver??1 tab,Start_date: 04/16/15,Refills: 0, By mouth, Daily doxepin 3 mg oral tablet??3 mg = 1 tab,Start_date: 09/23/22,Refills: 0, By mouth, at bedtime galantamine 8 mg oral tablet??8 mg = 1 tab,Start_date: 04/07/22,Refills: 0, By mouth, BID olmesartan 20 mg oral tablet??1 tab,Start_date: 06/27/22,Refills: 0, By mouth, Daily ProAir HFA 108 (90 mcg base)/inh inhalation aerosol??2 puff,Start_date: 04/07/22,Refills: 6, PRN, Inhalation, Q6H silodosin 8 mg oral capsule??1 cap,Start_date: 09/23/22,Refills: 11, By mouth, Daily simvastatin 20 mg oral tablet??1 tab,Start_date: 01/02/20,Refills: 5, By mouth, at bedtime triamcinolone topical 0.1% cream??1 application,Start_date: 04/07/22,Refills: 0, Topical, BID Medication reconciliation completed on this patient today Allergies No Known Allergies Social History Alcohol Current, Social Employment/School Highest education level: High school. Status: Retired. Occupation: [employer]. Exercise Frequency: Daily. Type: Walking. Home/Environment Marital status . 1 children. Seatbelt use: Always. Lives with: Spouse. Nutrition/Health Type of diet: No Diet Restrictions. Caffeine intake amount: 5+ drinks/day. Type of caffeine drinks:Coffee. Calcium intake: Adequate Intake. Sun exposure: Rarely. Other Substance Abuse Denies Tobacco Smoking Status: Never smoker. Smokeless tobacco use: Never. Has the patient smoked in the last 365 days, even once? No. Family History Alzheimers disease: MOTHER. Colon cancer.: AUNT. Heart disease: AUNT and AUNT. Hypertension: PGM. Liver cancer.....: FATHER. Electronically signed by:Yaima Ji MD 10/06/22 16:11 Patient Care team information Care Team Personnel Name: Yaima Ji MD Position: PX Physician - Family Practice Member Role: Primary Care Physician Address: Address: [address] [place] [address]- Care Team Related Persons Name: YUE LYON Name: BOGDAN LYON Address: [address] [place] [address] Name: COREY LYON
--- OUTSIDE RECORDS SUMMARY | 2023-03-23 10:35 | XMS_ITS | Continuity of Care Document ---
Author Name Unknown Organization [facility] Address [address] [place] [address]- Care Team Providers Care Braille Teacher Name Role Phone Yaima Ji MD Primary Care Physician [phone] Yaima Ji MD Primary Care Physician [phone] Encounter [facility] Number [id number] Date(s): 11/17/22 - 11/19/22 [facility] [address] [place] [address]- Attending Physician: Yaima Ji MD Admitting Physician: Referring, DR Spaulding Allergies, Adverse Reactions, Alerts No Known Allergies Assessment and Plan Future Appointments Appointment Date:11/22/2022 09:00:00 AM Scheduled Provider:Yaima Ji MD Location:[facility] Latisha Thao Appointment Type:Established Patient Appointment Date:11/30/2022 10:45:00 AM Scheduled Provider:Escobar Holloway PT (Andy) [facility] Type:PT Adult - Eval Appointment Date:12/02/2022 10:00:00 AM Scheduled Provider:Adin Lawton Location:[facility] Appointment Type:Established Patient Appointment Date:12/12/2022 01:30:00 PM Scheduled Provider:Adin Lawton Location:[facility] Appointment Type:Established Patient Appointment Date:12/20/2022 07:15:00 AM Scheduled Provider: Location:[facility] Surgery Appointment Type:Surgery Appointment Date:01/05/2023 01:30:00 PM Scheduled Provider:Adin Lawton Location:[facility] Appointment Type:Hospital Follow Up (Established) Appointment Date:04/17/2023 08:00:00 AM Scheduled Provider:Yaima Ji MD Location:[facility] Appointment Type:Established Patient Immunizations Given and Recorded [...] # 14 tab, Refill(s) 2, [id number], TAKE ONE TABLET BY MOUTH AT BEDTIME, 76.48, 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, kg, 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 Start Date: 10/26/22 Status: Ordered ferrous sulfate 325 mg (65 [...] Daily, # 90 tab, Refill(s) 0, Pharmacy: [facility], [facility]_ID-[id number], TAKE ONE TABLET BY MOUTH DAILY, 76.48, 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, kg, 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 Start Date: 11/15/22 Status: Ordered pantoprazole 40 mg oral delayed release tablet 40 mg = 1 tab, By mouth, Daily, # 30 tab, Refill(s) 3, Pharmacy: [facility], [facility]_ID-[id number], 1 tab By mouth Daily, 76.48, 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, kg, 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 Start Date: 11/01/22 Status: Ordered ProAir HFA 108 (90 mcg base)/inh inhalation aerosol 2 puff, Inhalation, Q6H, for wheezing, # 1 EA, Refill(s) 6, Route to Pharmacy Electronically, Pharmacy: [facility], [facility]_ID-[id number], 2 puff Inhalation Q6H,PRN:for wheezing, 74.09, 04/07/2213:37:00 CDT, kg, Weight Start Date: 04/07/22 Status: Ordered silodosin 8 mg oral capsule = 1 cap, By mouth, Daily, # 30 cap, Refill(s) 11, Pharmacy: [facility], [facility]_ID-[id number],1 cap By mouth Daily, 75.23, 09/23/22 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, kg, 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 Start Date: 09/23/22 Status: Ordered simvastatin 20 mg oral tablet = 1 tab, By mouth, at bedtime, # 90 tab, Refill(s) 5, Pharmacy: [facility], [facility]_ID-[id number], TAKE 1 TABLET BY MOUTH AT BEDTIME, 66.5, 12/24/19 11:42:00 CDT, in, 76.82, 12/19/19 9:21:00 CDT, kg, Weight Start Date: 01/02/20 Status: Ordered triamcinolone topical 0.1% cream 1 application, Topical, BID, # 30 g, Refill(s) 0, Route to Pharmacy Electronically, Pharmacy: [facility], [facility]_ID-[id number], 1 application Topical BID, 74.09, 04/07/22 13:37:00 [...] Status MRI of the brain 1 10/05/21 [facility] Carotid Dopplers 2 04/02/21 [facility] Nuclear medicine stress test 3 03/29/21 [...] Care team information Care Team Personnel Name: Margy SCHULTZ, Yaima Keita Position: PX Physician - Family Practice Member Role: Primary Care Physician Address: Address: [address] [place] [address]- Care Team Related Persons Name: YUE LYON Name: BOGDAN LYON Address: [address] [place] [id number] Name: COREY LYON
--- OUTSIDE RECORDS SUMMARY | 2023-03-23 10:36 | XMS_ITS | Continuity of Care Document ---
Author Name Unknown Organization [facility]ly [facility] Address [address] [place] [address]- Care Team Providers Care Filter Plant Operator Name Role Phone Yaima Ji MD Primary Care Physician [phone] Yaima Ji MD Primary Care Physician [phone] Encounter 09/23/22 - 09/24/22 [facility] [address] [place] [address]- [place] Encounter Diagnosis Neurodermatitis(Discharge Diagnosis) - 09/23/22 CVA (cerebrovascular accident)(Discharge Diagnosis) - 09/23/22 Mild memory disturbance(Discharge Diagnosis) - 09/23/22 Encounter for screening for other disorder(Discharge Diagnosis) - 09/23/22 Attending Physician: Yaima Ji MD Allergies, Adverse Reactions, Alerts No Known Allergies Assessment and Plan Extracted from: Title:Office Visit - Comprehensive Author:Yaima Bowles MD Date:09/23/22 CVA (cerebrovascular acciden t)(Cerebral infarction, unspecified: I63.9) No changes Ordered: Return to Clinic, Return in 6 months ?? Mild memory disturbance(Other amnesia: R41.3) Memory??test done today,??patient is taking??his??galantamine.?? He??does see??DrMagdalena??Salome??regularly.?? He scored?? today on his slums test. ? Ordered: Return to Clinic, Return in 6 months ?? 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 Recommend??using??coconut oil that??he has at home.?? If that is not effective??then??he??can try some??doxepin at bedtime only.?? Discussed possible side effects??of??that medication.?? He does not??have any??evidence??of rash.?? Could be medication related but he does not??have anything??new.?? No new soaps??or??detergents.?? No new lotions. ? Ordered: doxepin, 3 mg = 1 tab, By mouth, at bedtime, # 14 tab, Refill(s) 0, Pharmacy: [facility], NEPDP_ID-[id number], 1 tab By mouth at bedtime, 75.23, 09/23/22 10:47:00 PAYMENT COLLECTOR, kg, Weight Office Visit Level 4 Established 30-39 min 12690 Return to Clinic, Return in 6 months ?? Future Appointments Appointment Date:12/02/2022 10:00:00 AM Scheduled Provider:Adin Lawton Location[facility] Appointment Type:Established Patient Appointment Date:12/12/2022 01:30:00 PM Scheduled Provider:Adin Lawton Location:[facility] Appointment Type:Established Patient Appointment Date:12/20/2022 07:15:00 AM Scheduled Provider: Location:[facility] [place] Surgery Appointment Type:Surgery Appointment Date:01/05/2023 01:30:00 PM Scheduled Provider:Adin Lawton Location:[facility] Appointment Type:Hospital Follow Up (Established) Appointment Date:04/17/2023 08:00:00 AM Scheduled Provider:Yaima Ji MD Location:[facility] [place] [facility] Appointment Type:Established Patient Immunizations Given and Recorded [...] Pneumovax 23 pneumococcal 23-valent 12/20/07 Given Medications Centrum Silver 1 tab, By mouth, Daily, lasdt dose 01/20/21, Refill(s) 0 Start Date: 04/16/15 Status: Ordered doxepin 3 mg oral tablet 3 mg = 1 tab, By mouth, at bedtime, # 14 tab, Refill(s) 0, Pharm[facility]: [id number], 1 tab By mouth at bedtime, 75.23, 09/23/22 10:47:00 PAYMENT COLLECTOR, kg, Weight Start Date: 09/23/22 Status: Ordered galantamine 8 mg oral tablet 8 mg = 1 tab, By mouth, BID, # 60 tab, Refill(s) 0, other Start Date: 04/07/22 Status: Ordered olmesartan 20 mg oral tablet = 1 tab, By mouth, Daily, # 90 tab, Refill(s) 0, Pharmacy: [facility], NEPDP_ID-[id number], TAKE ONE TABLET BY MOUTH DAILY, 74.09, 04/07/22 13:37:00 CDT, kg, Weight Start Date: 06/27/22 Status: Ordered ProAir HFA 108 (90 mcg base)/inh inhalation aerosol 2 puff, Inhalation, Q6H, for wheezing, # 1 EA, Refill(s) 6, Route to Pharmacy Electronically, Pharmacy: [facility], NCPDP_ID-[id number], 2 puff Inhalation Q6H,PRN:for wheezing, 74.09, 04/07/2213:37:00 CDT, kg, Weight Start Date: 04/07/22 Status: Ordered silodosin 8 mg oral capsule = 1 cap, By mouth, Daily, # 30 cap, Refill(s) 11, Pharmacy: [facility], NCPDP_ID-[id number],1 cap By mouth Daily, 75.23, 09/23/22 10:47:00 PAYMENT COLLECTOR, kg, Weight Start Date: 09/23/22 Status: Ordered simvastatin 20 mg oral tablet = 1 tab, By mouth, at bedtime, # 90 tab, Refill(s) 5, Pharmacy: [facility], NCPDP_ID-[id number], TAKE 1 TABLET BY MOUTH AT BEDTIME, 66.5, 12/24/19 11:42:00 CDT, in, 76.82, 12/19/19 9:21:00 CDT, kg, Weight Start Date: 01/02/20 Status: Ordered triamcinolone topical 0.1% cream 1 application, Topical, BID, # 30 g, Refill(s) 0, Route to Pharmacy Electronically, Pharmacy: [facility], NCPDP_ID-[id number], 1 application Topical BID, 74.09, 04/07/22 13:37:00 [...] Confirmed Active Mild memory disturbance Confirmed Active Near syncope Confirmed Active Acute [...] infection Confirmed Active Skin lesion Confirmed Active Need for pneumococcal vaccine Confirmed Active Procedures Procedure Date Related Diagnosis Body Site Status MRI of the brain 1 10/05/21 [facility] Carotid Dopplers 2 04/02/21 [facility] Nuclear medicine stress test 3 03/29/21 [...] to oldest [Reference Range]: 1 Blood Pressure 122/70 (09/23/22 10:42 AM) Height (inches) (Clinical) 69 in (09/23/22 10:42 AM) Weight (kg) (Clinical) 75.23 kg (09/23/22 10:42 AM) BMI (Clinical) 24.4 kg/m2 (09/23/22 10:42 AM) Social History Social History Type Response Smoking Status Never smoker; Smokel ess tobacco use: Never; Has the patient smoked in the last 365 days, even once? No entered on: 04/07/22 Sex Male Family medicine Note * Margy SCHULTZ, Yaima Keita: PERFORM, MODIFY Event Display: Family Practice Office/Clinic Note Authored Date: [id number] Chief Complaint c/o pruritis all over nasal drainage, increased SOB for several weeks has tried Benadryl here & there some Claritin for a few days not taking regularly General Information Information Given By: Patient (09/23/22 10:42:00) Nurse Intake Nursing Intake?? General Information?? Pain Information?? Physicians and Specialties: Dr. Munson- PCP (09/23/22) Pain Present: No actual or suspected pain (09/23/22) Information Given By: Patient (02/24/23) ?? History of Present Illness itching all over for a month, no rash.?? legs and arms mostly, no new meds, no new soaps.?? He is sleeping OK,?? HE has tried some meds for the itching otc.?? He also has tried OA crean with the OA in his hands.?? Boyd had a lot of nasal drainage. No fevers.?? Review of Systems Patient denies significant change in weight, headaches, vision changes, rashes, respiratory symptoms, chest pain, GI symptoms, joint pains, urinary symptoms, and depressive symptoms. Physical Exam Vitals & Measurements HR:??84?? BP:??122/70?? HT:??69??in?? WT:??165.50??lb?? WT:??75.23??kg?? BMI:??24.4?? General: In no acute distress. Alert & oriented. Behavior and affect appropriate to situation Skin: Warm and dry with no rash or suspicious lesions noted. Assessment/Plan CVA (cerebrovascular accident)(Cerebral infarction, unspecified: I63.9) No changes Ordered: Return to Clinic, Return in 6 months ?? Mild memory disturbance(Other amnesia: R41.3) Memory??test done today,??patient is taking??his??galantamine.?? He??does see?Salome??regularly.?? He scored?? today on his slums test. ? Ordered: Return to Clinic, Return in 6 months ?? 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 Recommend??using??coconut oil that??he has at home.?? If that is not effective??then??he??can try some??doxepin at bedtime only.?? Discussed possible side effects??of??that medication.?? He does not??have any??evidence??of rash.?? Could be medication related but he does not??have anything??new.?? No new soaps??or??detergents.?? No new lotions. ? Ordered: doxepin, 3 mg = 1 tab, By mouth, at bedtime, # 14 tab, Refill(s) 0, [id number], 1 tab By mouth at bedtime, 75.23, 09/23/22 10:47:00 PAYMENT COLLECTOR, kg, Weight Office Visit Level 4 Established 30-39 min 23895 Return to Clinic, Return in 6 months ?? Problem List/Past Medical History Anemia due to [...] ?? Melanoma: ?? Mild memory disturbance: ?? Near syncope: ?? Acute colitis: ?? Nonsustained ventricular tachycardia: ?? Occult blood in stools: ?? Open wound: ?? DJD (degenerative joint disease): ?? Knee osteoarthritis: ?? Postural dizziness with presyncope: ?? Herniated lumbar intervertebral disc: ?? Vaccine for streptococcus pneumoniae and influenza: ?? Urinary retention: ?? Sciatica: ?? Sinus infection: ?? Skin lesion: ?? Need for pneumococcal vaccine: ?? Procedure/Surgical History ???MRI of the brain (10/05/2021)???Carotid Dopplers (04/02/2021)???Nuclear medicine stress test (03/29/2021)???Colonoscopy (11/06/2018)???EGD (04/05/2017)???colonoscopy (09/19/2014)???Bilateral Knee - Arriaga's Cyst???Tonsillectomy Medications Home Medications (8) Active Centrum Silver??1 tab,Start_date: 04/16/15,Refills: 0, By mouth, [...] Q6H silodosin 8 mg oral capsule??1 cap,Start_date: ,Refills: 3, By mouth, Daily simvastatin 20 mg oral [...] and AUNT. Hypertension: PGM. Liver cancer.....: FATHER. Other SLUMS Mental Status Exam What Day of Week: Correct (09/23/22) What Year: Correct (09/23/22) What State: Correct (09/23/22) How Much Did You Spend: Incorrect (09/23/22) How Much Do You Have Left: Incorrect (09/23/22) Name As Many Animals: 10-14 animals (09/23/22) Five Objects Remembered: Pen, House, Car (09/23/22) Series of Numbers 1: Correct (09/23/22) Series of Numbers 2: Correct (09/23/22) Series of Numbers 3: Incorrect (09/23/22) Hour Markers: Correct (09/23/22) Time Correct: Correct (09/23/22) Place X In [place]: Correct (09/23/22) Figures Is Largest: Correct (09/23/22) Female's Name: Correct (09/23/22) Go Back to Work: Correct (09/23/22) What Work Did She Do: Incorrect (09/23/22) What State Did She live In: Correct (09/23/22) Education Level: High school education or above (09/23/22) SLUMS Score: 21 (09/23/22) SLUMS Interpretation High: Mild Neurocognitive Disorder (09/23/22) Highest Education Completed: High school (09/23/22) Electronically signed by:Yaima Ji MD 09/23/22 12:39 Patient Care team information Care Team Personnel Name: Yaima Ji MD Position: PX Physician - Family Practice Member Role: Primary Care Physician Address: Address: [address] [place] [address]- Care Team Related Persons Name: YUE LYON Name: BOGDAN LYON Address: [address] [place] [id number] Name: COREY LYON
--- OUTSIDE RECORDS SUMMARY | 2023-03-23 10:36 | XMS_ITS | Continuity of Care Document ---
Author Name Unknown Organization [facility] Address [address] [place] [address]- Care Team Providers Care Software Development Engineer Name Role Phone Yaima Ji MD Primary Care Physician [phone] Yaima Ji MD Primary Care Physician [phone] Encounter 11/17/22 - 11/18/22 [facility] [address] [place] [address]- [place] Encounter Diagnosis Anemia due to blood loss(Discharge Diagnosis) - 11/17/22 Attending Physician: Yaima Ji MD Allergies, Adverse Reactions, Alerts No Known Allergies Assessment and Plan Future Appointments Appointment Date:11/22/2022 09:00:00 AM Scheduled Provider:Yaima Ji MD Location:[facility] Latisha Thao Appointment Type:Established Patient Appointment Date:11/30/2022 10:45:00 AM Scheduled Provider:Escobar Holloway PT (Andy) [facility] Appoint[facility] Type:PT Adult - Eval Appointment Date:12/02/2022 10:00:00 AM Scheduled Provider:Adin Lawton Location:[facility] Appointment Type:Established Patient Appointment Date:12/12/2022 01:30:00 PM Scheduled Provider:Adin Lawton Location:[facility] Appointment Type:Established Patient Appointment Date:12/20/2022 07:15:00 AM Scheduled Provider: Location:[facility] Surgery Appointment Type:Surgery Appointment Date:01/05/2023 01:30:00 PM Scheduled Provider:Adin Lawton Location:[facility] Appointment Type:Hospital Follow Up (Established) Appointment Date:04/17/2023 08:00:00 AM Scheduled Provider:Yaima Ji MD Location:[facility] Appointment Type:Established Patient Immunizations Given and Recorded [...] bedtime, # 14 tab, Refill(s) 2, Pharmacy: [facility], NCPDP_ID-[id number], TAKE ONE TABLET BY MOUTH AT BEDTIME, 76.48, 10/06/22 14:54:00 ARTIFICIAL FLOWERS STARCHER, kg, Weight Start Date: 10/26/22 Status: Ordered [...] Daily, # 90 tab, Refill(s) 0, Pharmacy: [facility], [facility]_ID-[id number], TAKE ONE TABLET BY MOUTH DAILY, 76.48, 10/06/22 14:54:00 ARTIFICIAL FLOWERS STARCHER, kg, Weight Start Date: 11/15/22 Status: Ordered pantoprazole 40 mg oral delayed release tablet 40 mg = 1 tab, By mouth, Daily, # 30 tab, Refill(s) 3, Pharmacy: [facility], [facility]_ID-[id number], 1 tab By mouth Daily, 76.48, 10/06/22 14:54:00 ARTIFICIAL FLOWERS STARCHER, kg, Weight Start Date: 11/01/22 Status: Ordered ProAir HFA 108 (90 mcg base)/inh inhalation aerosol 2 puff, Inhalation, Q6H, for wheezing, # 1 EA, Refill(s) 6, Route to Pharmacy Electronically, Pharmacy: [facility], [facility]_ID-[id number], 2 puff Inhalation Q6H,PRN:for wheezing, 74.09, 04/07/2213:37:00 CDT, kg, Weight Start Date: 04/07/22 Status: Ordered silodosin 8 mg oral capsule = 1 cap, By mouth, Daily, # 30 cap, Refill(s) 11, Pharmacy: [facility], OHPDP_ID-[id number],1 cap By mouth Daily, 75.23, 09/23/22 10:47:00 ARTIFICIAL FLOWERS STARCHER, kg, Weight Start Date: 09/23/22 Status: Ordered simvastatin 20 mg oral tablet = 1 tab, By mouth, at bedtime, # 90 tab, Refill(s) 5, Pharmacy: [facility], NCPDP_ID-[id number], TAKE 1 TABLET BY MOUTH AT BEDTIME, 66.5, 12/24/19 11:42:00 CDT, in, 76.82, 12/19/19 9:21:00 CDT, kg, Weight Start Date: 01/02/20 Status: Ordered triamcinolone topical 0.1% cream 1 application, Topical, BID, # 30 g, Refill(s) 0, Route to Pharmacy Electronically, Pharmacy: [facility], OHPDP_ID-[id number], 1 application Topical BID, 74.09, 04/07/22 13:37:00 [...] Status MRI of the brain 1 10/05/21 [facility] Carotid Dopplers 2 04/02/21 [facility] Nuclear medicine stress test 3 [...] Member Role: Primary Care Physician Address: Address: [address] [place] [address]- Care Team Related Persons Name: YUE LYON Name: BOGDAN LYON Address: [address] [place] [address] Name: COREY LYON
--- OUTSIDE RECORDS SUMMARY | 2023-03-23 10:36 | XMS_ITS | Continuity of Care Document ---
Author Name Unknown Organization [facility] Address [address] [place] [address]- Care Team Providers Care Bag Cutter Name Role Phone Yaima Ji MD Primary Care Physician [phone] Yaima Ji MD Primary Care Physician [phone] Encounter [facility] Number [id number] Date(s): 10/20/22 - 10/22/22 [facility] [address] [place] [address]- Attending Physician: Yaima Ji MD Admitting Physician: Referring, DR Spaulding Allergies, Adverse Reactions, Alerts No Known Allergies Assessment and Plan Future Appointments Appointment Date:12/02/2022 10:00:00 AM Scheduled Provider:Adin Lawton Location:[facility] Appointment Type:Established Patient Appointment Date:12/12/2022 01:30:00 PM Scheduled Provider:Adin Lawton Location:[facility] Appointment Type:Established Patient Appointment Date:12/20/2022 07:15:00 AM Scheduled Provider: Location:[facility] [place] Appointment Type:Surgery Appointment Date:01/05/2023 01:30:00 PM Scheduled Provider:Adin Lawton Location[facility] Appointment Type:Hospital Follow Up (Established) Appointment Date:04/17/2023 08:00:00 AM Scheduled Provider:Yaima Ji MD Location:[facility] Appointment Type:Established Patient Immunizations Given and Recorded [...] bedtime, # 14 tab, Refill(s) 0, Pharmacy: [facility], MOPDP_ID-[id number], TAKE ONE TABLET BY MOUTH AT BEDTIME, 76.48, 10/06/22 14:54:00 REGISTERED [facility], kg, Weight Start Date: 10/10/22 Status: Ordered [...] Daily, # 90 tab, Refill(s) 0, Pharmacy: [facility], MOPDP_ID-[id number], TAKE ONE TABLET BY MOUTH DAILY, 76.48, 10/06/22 14:54:00 REGISTERED [facility], kg, Weight Start Date: 10/13/22 Status: Ordered ProAir HFA 108 (90 mcg base)/inh inhalation aerosol 2 puff, Inhalation, Q6H, for wheezing, # 1 EA, Refill(s) 6, Route to Pharmacy Electronically, Pharmacy: [facility], NCPDP_ID-[id number], 2 puff Inhalation Q6H,PRN:for wheezing, 74.09, 04/07/2213:37:00 CDT, kg, Weight Start Date: 04/07/22 Status: Ordered silodosin 8 mg oral capsule = 1 cap, By mouth, Daily, # 30 cap, Refill(s) 11, Pharmacy: [facility], MOPDP_ID-[id number],1 cap By mouth Daily, 75.23, 09/23/22 10:47:00 REGISTERED [facility], kg, Weight Start Date: 09/23/22 Status: Ordered simvastatin 20 mg oral tablet = 1 tab, By mouth, at bedtime, # 90 tab, Refill(s) 5, Pharmacy: [facility], NCPDP_ID-[id number], TAKE 1 TABLET BY MOUTH AT BEDTIME, 66.5, 12/24/19 11:42:00 CDT, in, 76.82, 12/19/19 9:21:00 CDT, kg, Weight Start Date: 01/02/20 Status: Ordered triamcinolone topical 0.1% cream 1 application, Topical, BID, # 30 g, Refill(s) 0, Route to Pharmacy Electronically, Pharmacy: [facility], NCPDP_ID-[id number], 1 application Topical BID, 74.09, 04/07/22 13:37:00 [...] Status MRI of the brain 1 10/05/21 [facility] Carotid Dopplers 2 04/02/21 [facility] Nuclear medicine stress test 3 03/29/21 Completed [...] Primary Care Physician Address: Address: [address] [place] [address]- Care Team Related Persons Name: YUE LYON Name: BOGDAN LYON Address: [address] [place] [address] Name: COREY LYON
--- OUTSIDE RECORDS SUMMARY | 2023-03-23 10:36 | XMS_ITS | Continuity of Care Document ---
Author Name Unknown Organization [facility] Address [address] [place] [address]- Care Team Providers Care Frozen Pie Maker Name Role Phone Yaima Ji MD Primary Care Physician [phone] Yaima Ji MD Primary Care Physician [phone] Encounter 12/12/22 - 12/13/22 [facility] [address] [place] [address]- [place] Attending Physician: Adin Lawton Allergies, Adverse Reactions, Alerts No Known Allergies Assessment and Plan Future Appointments Appointment Date:04/17/2023 08:00:00 AM Scheduled Provider:Yaima Ji MD Location:[facility] Appointment Type:Established Patient Future Scheduled Tests [...] 14 tab, Refill(s) 2, Pharmacy: [facility], [facility]_ID-[id number], TAKE ONE TABLET BY MOUTH AT BEDTIME, [...] 90 tab, Refill(s) 0, Pharmacy: [facility], NCP_ID-[id number], TAKE ONE TABLET BY MOUTH DAILY, 76.48, 10/06/22 14:54:00 SAND SIFTER, kg, Weight Start Date: 11/15/22 Status: Ordered pantoprazole 40 mg oral delayed release tablet 40 mg = 1 tab, By mouth, Daily, # 30 tab, Refill(s) 3, Pharmacy: [facility], [facility]_ID-[id number], 1 tab By mouth Daily, 76.48, 10/06/22 14:54:00 SAND SIFTER, kg, Weight Start Date: 11/01/22 Status: Ordered ProAir HFA 108 (90 mcg base)/inh inhalation aerosol 2 puff, Inhalation, Q6H, for wheezing, # 1 EA, Refill(s) 6, Route to Pharmacy Electronically, Pharmacy: [facility], NCPDP_ID-[id number], 2 puff Inhalation Q6H,PRN:for wheezing, 74.09, 04/07/2213:37:00 CDT, kg, Weight Start Date: 04/07/22 Status: Ordered silodosin 8 mg oral capsule = 1 cap, By mouth, Daily, # 30 cap, Refill(s) 11, Pharmacy: [facility], INPDP_ID-[id number],1 cap By mouth Daily, 75.23, 09/23/22 10:47:00 SAND SIFTER, kg, Weight Start Date: 09/23/22 Status: Ordered simvastatin 20 mg oral tablet = 1 tab, By mouth, at bedtime, # 90 tab, Refill(s) 5, Pharmacy: [facility], NCPDP_ID-[id number], TAKE 1 TABLET BY MOUTH AT BEDTIME, 66.5, 12/24/19 11:42:00 CDT, in, 76.82, 12/19/19 9:21:00 CDT, kg, Weight Start Date: 01/02/20 Status: Ordered triamcinolone topical 0.1% cream 1 application, Topical, BID, # 30 g, Refill(s) 0, Route to Pharmacy Electronically, Pharmacy: [facility], NCPDP_ID-[id number], 1 application Topical BID, 74.09, 04/07/22 13:37:00 [...] Status MRI of the brain 1 10/05/21 [facility] Carotid Dopplers 2 04/02/21 [facility] Nuclear medicine stress test 3 03/29/21 Completed [...] Primary Care Physician Address: Address: [address] [place] [address]- Name: Adin Lawton Position: [facility] Med Service: Orthopaedics Member Role: Attending Physician Address: Address: [address] [place] [address]- Care Team Related Persons Name: YUE LYON Name: BOGDAN LYON Address: [address] [place] [address] Name: COREY LYON
--- OUTSIDE RECORDS SUMMARY | 2023-03-23 10:36 | XMS_ITS | Continuity of Care Document ---
Author Name Unknown Organization Formerly [facility] Address [address] [place] [address]- Care Team Providers Care Home Builder Name Role Phone Yaima Ji MD Primary Care Physician [phone] Yaima Ji MD Primary Care Physician [phone] Encounter 11/22/22 - 11/23/22 [facility] [address] [place] [address]- [place] Encounter Diagnosis Anemia due to blood loss(Discharge Diagnosis) - 11/22/22 CVA (cerebrovascular accident)(Discharge Diagnosis) - 11/22/22 Diarrhea(Discharge Diagnosis) - 11/22/22 Encounter for screening for other disorder(Discharge Diagnosis) - 11/22/22 Attending Physician: Yaima Ji MD Allergies, Adverse Reactions, Alerts No Known Allergies Assessment and Plan Extracted from: Title:Office Visit - Comprehensive Author:Yaima Bowles MD Date:11/22/22 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 Ordered: CBC-d Iron Serum Office Visit Level 4 Established 30-39 min 65081 ?? CVA (cerebrovascular accident)(Cerebral infarction, unspecified: I63.9) no changes Ordered: Office Visit Level 4 Established 30-39 min 87076 ?? Diarrhea(Diarrhea, unspecified: R19.7) discussed using immodium prn Ordered: Office Visit Level 4 Established 30-39 min 12048 ?? EGD and colon pending. Future Appointments Appointment Date:11/30/2022 10:45:00 AM Scheduled Provider:Escobar Holloway PT) Neela Location:[facility] Appointment Type:PT Adult - Eval Appointment Date:04/17/2023 08:00:00 AM Scheduled Provider:Yaima Ji MD Location:[facility] Latisha Thao Appointment Type:Established Patient Future Scheduled [...] 14 tab, Refill(s) 2, Pharmacy: [facility], NCPDP_ID-[id number], TAKE ONE TABLET BY MOUTH AT BEDTIME, 76.48, 10/06/22 14:54:00 LAUNDRY AIDE, kg, Weight Start Date: 10/26/22 Status: Ordered [...] 90 tab, Refill(s) 0, Pharmacy: [facility], [facility]-[id number], TAKE ONE TABLET BY MOUTH DAILY, 76.48, 10/06/22 14:54:00 LAUNDRY AIDE, kg, Weight Start Date: 11/15/22 Status: Ordered pantoprazole 40 mg oral delayed release tablet 40 mg = 1 tab, By mouth, Daily, # 30 tab, Refill(s) 3, Pharmacy: [facility], [facility]_ID-[id number], 1 tab By mouth Daily, 76.48, 10/06/22 14:54:00 LAUNDRY AIDE, kg, Weight Start Date: 11/01/22 Status: Ordered ProAir HFA 108 (90 mcg base)/inh inhalation aerosol 2 puff, Inhalation, Q6H, for wheezing, # 1 EA, Refill(s) 6, Route to Pharmacy Electronically, Pharmacy: [facility], FLPDP_ID-[id number], 2 puff Inhalation Q6H,PRN:for wheezing, 74.09, 04/07/2213:37:00 CDT, kg, Weight Start Date: 04/07/22 Status: Ordered silodosin 8 mg oral capsule = 1 cap, By mouth, Daily, # 30 cap, Refill(s) 11, Pharmacy: [facility], [facility]_ID-[id number],1 cap By mouth Daily, 75.23, 09/23/22 10:47:00 LAUNDRY AIDE, kg, Weight Start Date: 09/23/22 Status: Ordered simvastatin 20 mg oral tablet = 1 tab, By mouth, at bedtime, # 90 tab, Refill(s) 5, Pharmacy: [facility], NCPDP_ID-[id number], TAKE 1 TABLET BY MOUTH AT BEDTIME, 66.5, 12/24/19 11:42:00 CDT, in, 76.82, 12/19/19 9:21:00 CDT, kg, Weight Start Date: 01/02/20 Status: Ordered triamcinolone topical 0.1% cream 1 application, Topical, BID, # 30 g, Refill(s) 0, Route to Pharmacy Electronically, Pharmacy: [facility], NCPDP_ID-[id number], 1 application Topical BID, 74.09, 04/07/22 13:37:00 [...] to oldest [Reference Range]: 1 Blood Pressure 116/64 (11/22/22 8:58 AM) Height (inches) (Clinical) 69 in (11/22/22 8:58 AM) Weight (kg) (Clinical) 77.73 kg (11/22/22 8:58 AM) BMI (Clinical) 25.2 kg/m2 (11/22/22 8:58 AM) Social History Social History Type Response Smoking Status Never smoker; Smokel ess tobacco use: Never; Has the patient smoked in the last 365 days, even once? No entered on: 04/07/22 Sex Male Family medicine Note * Margy SCHULTZ, Yaima Keita: PERFORM Event Display: Family Practice Office/Clinic Note Authored Date: [id number] Chief Complaint 1 month follow up ??anemia , Syncope Nurse Intake Nursing Intake?? General Information?? Pain Information?? Physicians and Specialties: Dr. Munson- PCP (11/22/22) Pain Present: No actual or suspected pain (11/22/22) History of Present Illness He is here??for follow-up of his??anemia.?? He has not noticed??any further??bleeding in his stools.?? He never really??no staying in the 1st place.?? He continues??to have trouble with??his??memory.?? He has not??had his colonoscopy??or EGD??yet but thinks they are probably being set up.?He has not had any??further??syncopal??episodes.?? He??did have??a heart monitor??done??last month which??was normal.?? Results??were reviewed??with him today.?? This was ordered??by ??[facility].?? He??did have positive hemoccults??on his stools??and scopes are pending.? Review of Systems Patient denies significant change in weight, headaches, vision changes, rashes, respiratory symptoms, chest pain, GI symptoms, joint pains, urinary symptoms, and depressive symptoms. Physical Exam Vitals & Measurements HR:??64?? BP:??116/64?? HT:??69??in?? WT:??171.0??lb?? WT:??77.73??kg?? BMI:??25.2?? General: In no acute distress. Alert & oriented. Behavior and affect appropriate to situation Skin: Warm and dry with no rash or suspicious lesions noted. CV: Regular rate and rhythm without murmur. Chest: Respirations even and unlabored. Lungs clear to auscultation. No rhonchi. No crackles. No wheezing. ext without edema. 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 Ordered: CBC-d Iron Serum Office Visit Level 4 Established 30-39 min 06057 ?? CVA (cerebrovascular accident)(Cerebral infarction, unspecified: I63.9) no changes Ordered: Office Visit Level 4 Established 30-39 min 73708 ?? Diarrhea(Diarrhea, unspecified: R19.7) discussed using immodium prn Ordered: Office Visit Level 4 Established 30-39 min 48682 ?? Other EGD and colon pending. Problem List/Past Medical History Anemia due to blood loss: ?? Acute URI: ?? Back pain: ?? BPH (benign prostatic hyperplasia): ?? CVA (cerebrovascular accident): ?? Chest pain: ?? Lumbar stenosis: ?? Diarrhea: ?? Dizziness: ?? Duodenal ulcer: ?? Dyspnea: ?? Eczema: ?? Rash: ?? GI bleed: ?? S/P lumbar laminectomy: ?? Hyperlipidemia: ?? [...] Knee - Arriaga's Cyst???Tonsillectomy Medications Home Medications (11) Active aspirin??81 mg,Start_date: 10/06/22,Refills: 0, By mouth, Daily Centrum Silver??1 tab,Start_date: 04/16/15,Refills: 0, By mouth, Daily doxepin 3 mg oral tablet??1 tab,Start_date: 10/26/22,Refills: 2, By mouth, at bedtime ferrous sulfate 325 mg (65 mg elemental iron) oral delayed release tablet??325 mg = 1 tab,Start_date: 10/07/22,Refills: 0, By mouth, BID galantamine 8 mg oral tablet??8 mg = 1 tab,Start_date: 04/07/22,Refills: 0, By mouth, BID olmesartan 20 mg oral tablet??1 tab,Start_date: 11/15/22,Refills: 0, By mouth, Daily pantoprazole 40 mg oral delayed release tablet??40 mg = 1 tab,Start_date: 11/01/22,Refills: 3, By mouth, Daily ProAir HFA 108 (90 mcg base)/inh inhalation aerosol??2 puff,Start_date: 04/07/22,Refills: 6, PRN, Inhalation, Q6H silodosin 8 mg oral capsule??1 cap,Start_date: 09/23/22,Refills: 11, By mouth, Daily simvastatin 20 mg oral tablet??1 tab,Start_date: 01/02/20,Refills: 5, By mouth, at bedtime triamcinolone topical 0.1% cream??1 application,Start_date: 04/07/22,Refills: 0, Topical, BID Allergies No Known Allergies Social History Alcohol [...] cancer.....: FATHER. Electronically signed by:Yaima Ji MD 11/22/22 11:14 Patient Care team information Care Team Personnel Name: Yaima Ji MD Position: PX Physician - Family Practice Member Role: Primary Care Physician Address: Address: [address] [place] [address]- Care Team Related Persons Name: YUE LYON Name: BOGDAN LYON Address: [address] [place] [id number] Name: COREY LYON
[2023-03-24 09:52] LABS: Basophils # 0.1 10^3/uL (0.0-0.1); Basophils % 1.1 %; Eosinophils # 0.4 10^3/uL (0.0-0.8); Eosinophils % 6.3 %; Hematocrit 42.8 % (37-53); Lymphocytes # 1.9 10^3/uL (0.8-4.8); Lymphocytes % 29.2 %; Mean Corpuscular HGB Conc 32.2 g/dL (30-55); Mean Corpuscular Hemoglobin 29.3 pg (27-33); Mean Corpuscular Volume 90.9 fl (82-101); Mean Platelet Volume 10.3 fL (7.4-10.4); Monocytes # 0.7 10^3/uL (0.2-0.9); Neutrophils # 3.47 10^3/uL (1.8-7.7); Neutrophils % 53.1 %; Nucleated Red Blood Cells % 0 %; Platelet Count 318 10^3/cmm (157-399); Red Blood Count 4.71 10^6/uL (3.85-5.65); Red Cell Distribution Width 14.8 % (12.1-15.1); White Blood Count 6.53 10^3/uL (3.29-11.43)
[2023-03-24 10:17] LABS: Ferritin 59 ng/mL (30-400); Iron 112 ug/dL (59-158)
[2023-03-28 10:35] LABS: Erythropoietin 7.2 mIU/mL (2.6-18.5)
== END 2023-03-30 23:59 | disposition home or self-care (01) ==
PROVIDERS: PCP Family Medicine; Visit Provider Internal Medicine Medical Oncology
DX: D50.9 Iron deficiency anemia, unspecified (principal)
CPT/HCPCS: 36415; 82668; 82728; 83540; 85025; 99203; 99213

== ENCOUNTER → 2023-11-12 11:48 | Outpatient (BNVA) | payer MEDICARE, SELFPAY | PROVIDERS: PCP Family Medicine; Visit Provider Registered Nurse Neonatal Intensive Care | DX: R50.9 Fever, unspecified (principal) | CPT/HCPCS: 87400; 87426 ==

== ENCOUNTER → 2024-02-28 09:53 | Outpatient (BNVA) | payer MEDICARE, SELFPAY | PROVIDERS: PCP Family Medicine; Visit Provider Nurse Practitioner Family | DX: L21.8 Other seborrheic dermatitis (principal); B35.1 Tinea unguium; L82.1 Other seborrheic keratosis; L73.8 Other specified follicular disorders; L57.0 Actinic keratosis; H61.032 Chondritis of left external ear; D18.01 Hemangioma of skin and subcutaneous tissue; Z85.820 Personal history of malignant melanoma of skin; Z85.828 Personal history of other malignant neoplasm of skin | CPT/HCPCS: 17000; 99204 ==

== ENCOUNTER → 2024-08-27 08:59 | Outpatient (BNVA) | payer MEDICARE, SELFPAY | PROVIDERS: PCP Family Medicine; Visit Provider Nurse Practitioner Family | DX: L30.0 Nummular dermatitis (principal); L21.8 Other seborrheic dermatitis; Z85.820 Personal history of malignant melanoma of skin; Z08 Encounter for follow-up examination after completed treatment for malignant neoplasm; Z85.828 Personal history of other malignant neoplasm of skin; L57.0 Actinic keratosis | CPT/HCPCS: 17000; 99214 ==

== ENCOUNTER 2024-09-03 09:21 | Emergency (ER) | payer MEDICARE, SELFPAY ==
[2024-09-03 09:23] VITALS: BP 148/79; PULSE 80; RESP 16; TEMP 36.6; O2SAT 100; BMI 23.6
--- NOTE | 2024-09-03 09:26 | XRR_ITS ---
PROCEDURE INFORMATION: Exam: XR Chest Exam date and time: 09/03/2024 9:28 AM Age: 84 years old Clinical indication: Other: Weakness TECHNIQUE: Imaging protocol: Radiologic exam of the chest. Views: 1 view. Total images: 1 COMPARISON: CR XR chest 1V portable [id number] 09/26/2022 8:20 AM FINDINGS: Lungs: Unremarkable. No consolidation. Pleural spaces: Unremarkable. No pleural effusion. No pneumothorax. Heart/Mediastinum: A large hiatal hernia is present. This finding is stable when compared to the prior exam. Vasculature: Moderate atherosclerotic disease burden is evident. Bones/joints: Diffuse osteopenia noted. Osseous structures are unchanged from the prior exam. XR/XR chest 1V portable [id number] IMPRESSION: No acute cardiopulmonary process.
--- NOTE | 2024-09-03 09:33 | W.ED.SYNCOPE ---
HPI - Syncope General: Chief Complaint: Syncope Stated Complaint: Syncope Time Seen by Provider: 09/03/24 09:22 History of Present Illness: 84-year-old man with a history of BPH, Alzheimer's, hypertension and hyperlipidemia who presents emergency room by ambulance after having a syncopal episode. He was at the vet with his dog. He was leaning over a table and felt lightheaded. According to EMS it was reported he passed out for just about 2 minutes. They said his pulse was thready initially and bradycardic. Here he is still a bit bradycardic at times but his blood pressures improved. Initial set of vitals actually show a pulse of 80. He says he was feeling fine before. He feels better now. He was a bit diaphoretic. No chest pain. No abdominal pain. No vomiting. No known fevers or cough. Related Data Home Medications ?Medication ?Instructions ?Recorded ?Confirmed multivitamin 1 tab PO QAM 03/04/21 09/03/24 melatonin 3 mg capsule 3 mg PO BEDTIME 03/22/22 09/03/24 olmesartan 20 mg tablet (Benicar) 20 mg PO DAILY 03/24/23 09/03/24 pantoprazole 20 mg tablet,delayed 20 mg PO DAILY 03/24/23 09/03/24 release simvastatin 20 mg tablet 20 mg PO DAILY 03/30/23 09/03/24 Previous Rx's ?Medication ?Instructions ?Recorded galantamine 8 mg tablet 8 mg PO BID 90 days #180 tabs 05/24/22 silodosin 8 mg capsule See Rx Instructions .Route 01/03/23 .COMPLEX #90 caps Allergies Allergy/AdvReac Type Severity Reaction Status Date / Time No Known Allergies Allergy Verified 11/12/23 11:13 Review of Systems Narrative: Constitutional symptoms: Negative except as documented in HPI. Skin symptoms: Negative except as documented in HPI. Eye symptoms: Negative except as documented in HPI. ENMT symptoms: Negative except as documented in HPI. Respiratory symptoms: Negative except as documented in HPI. Cardiovascular symptoms: Negative except as documented in HPI. Gastrointestinal symptoms: Negative except as documented in HPI. Genitourinary symptoms: Negative except as documented in HPI. Musculoskeletal symptoms: Negative except as documented in HPI. Neurologic symptoms: Negative except as documented in HPI. Psychiatric symptoms: Negative except as documented in HPI. Endocrine symptoms: Negative except as documented in HPI. 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 Skin: Warm, dry. Head: Normocephalic, atraumatic. Neck: Supple, trachea midline. Eye: Extraocular movements are intact. Ears, nose, mouth and throat: mucosa moist. Cardiovascular: Regular, Normal peripheral perfusion. Respiratory: Lungs are clear to auscultation, respirations are non-labored, breath sounds are equal, Symmetrical chest wall expansion. Gastrointestinal: Soft, Nontender, Non distended Musculoskeletal: Normal ROM, no deformity. Neurological: Alert and oriented, No focal neurological deficit observed. Psychiatric: Cooperative, appropriate mood & affect. Course Vital Signs: Vital signs: Vital Signs Temperature 97.9 F 09/03/24 09:23 Pulse Rate 83 09/03/24 12:59 Respiratory Rate 24 H 09/03/24 10:00 Blood Pressure 136/74 09/03/24 12:59 Pulse Oximetry 93 09/03/24 12:59 Oxygen Delivery Me thod Room Air 09/03/24 09:23 MDM - Syncope Medical Decision Making Medical decision making: Differential diagnosis including but not limited to and based on the above HPI, review of systems and physical exam in this patient with syncope: Vasovagal, orthostatics hypotension, cardiac dysrhythmia, myocardial infarction, infection and hypotension, Orders placed to evaluate differential diagnosis based on the above differential, HPI and physical exam EKG: Time 1006. Rate 68. Normal sinus rhythm, No ST-T changes, PVCs, left anterior fascicular block, This was reviewed and interpreted by myself the ER physician at 1010 EKG: Normal sinus rhythm, No ST-T changes, no ectopy, normal SC & QRS intervals, This was reviewed and interpreted by myself the ER physician Repeat EKG: Time 1136. Rate 73. Normal sinus rhythm, No ST-T changes, no ectopy, left anterior fascicular block., This was reviewed and interpreted by myself the ER physician at 11:40 AM. No significant changes from EKG done previously today in the emergency room. Lab Review: Laboratory results were reviewed and interpreted by myself the emergency room physician. No leukocytosis. No anemia. No renal failure. Serial troponins are negative. I reviewed the patient's medical record. Reexamination: Patient remained stable. No increased work of breathing. No altered mental status. No focal motor deficits. Heart rate has remained in the 80s. Blood pressure has been normotensive. We discussed this was likely a vasovagal syncope Assessment and plan: Vasovagal syncope - Discharged home - Discussed plan with patient. Answered any questions. - Evaluation and treatment of this problem were appropriate in the emergency setting. Lab Data 09/03/24 10:20 09/03/24 10:20 Radiology Impressions Chest X-Ray 09/03/24 09:26 IMPRESSION: No acute cardiopulmonary process. Laboratory Results WBC 6.42 10^3/uL (3.29-11.43) 09/03/24 10:20 RBC 4.22 10^6/uL (3.85-5.65) 09/03/24 10:20 Hgb 12.60 g/dL (11.27-16.99) 09/03/24 10:20 Hct 39.4 % (37-53) 09/03/24 10:20 MCV 93.4 fl (82-101) 09/03/24 10:20 MCH 29.9 pg (27-33) 09/03/24 10:20 MCHC 32.0 g/dL (30-55) 09/03/24 10:20 RDW 12.8 % (12.1-15.1) 09/03/24 10:20 Plt Count 269 10^3/cmm (157-399) 09/03/24 10:20 MPV 10.3 fL (7.4-10.4) 09/03/24 10:20 Neut % (Auto) 55.6 % 09/03/24 10:20 Lymph % (Auto) 29.0 % 09/03/24 10:20 [place] % (Auto) 9.7 % 09/03/24 10:20 Eos % (Auto) 4.5 % 09/03/24 10:20 Baso % (Auto) 0.9 % 09/03/24 10:20 Neut # (Auto) 3.57 10^3/uL (1.8-7.7) 09/03/24 10:20 Lymph # (Auto) 1.9 10^3/uL (0.8-4.8) 09/03/24 10:20 [place] # (Auto) 0.6 10^3/uL (0.2-0.9) 09/03/24 10:20 Eos # (Auto) 0.3 10^3/uL (0.0-0.8) 09/03/24 10:20 Baso # (Auto) 0.1 10^3/uL (0.0-0.1) 09/03/24 10:20 Nucleated RBC % (auto) 0 % 09/03/24 10:20 Nucleated RBCs # 0.0 /100WBC 09/03/24 10:20 D-Dimer 0.49 ug/mLFEU (0-0.59) 09/03/24 10:20 Sodium 138 mmol/L (136-145) 09/03/24 10:20 Potassium 4.0 mmol/L (3.5-5.1) 09/03/24 10:20 Chloride 103 mmol/L (98-107) 09/03/24 10:20 Carbon Dioxide 23 mmol/L (22-29) 09/03/24 10:20 Anion Gap 16.0 (5-19) 09/03/24 10:20 BUN 18 mg/dL (8-23) 09/03/24 10:20 Creatinine 1.2 mg/dL (0.7-1.2) 09/03/24 10:20 GFR Calculation Not Reportable 09/03/24 10:20 Glucose 110 mg/dL (65-115) 09/03/24 10:20 Calculated Osmolality 289 mOsm/kg (285-295) 09/03/24 10:20 Lactic Acid 1.9 mmol/L (0.5-2.2) 09/03/24 10:20 Calcium 8.9 mg/dL (8.5-10.5) 09/03/24 10:20 Total Bilirubin 0.4 mg/dL (0.15-1.2) 09/03/24 10:20 AST 18 U/L (0-40) 09/03/24 10:20 ALT 10 U/L (0-41) 09/03/24 10:20 Alkaline Phosphatase 75 U/L (40-130) 09/03/24 10:20 Troponin T Baseline 16 ng/L (0-15) H 09/03/24 10:20 Troponin T 120 Minute 15.64 ng/L (0-15) H 09/03/24 12:12 Delta Troponin T -0.36 ABS# (0-10) L 09/03/24 12:12 Total Protein 7.5 g/dL (6.6-8.7) 09/03/24 10:20 Albumin 4.3 g/dL (3.5-5.2) 09/03/24 10:20 Globulin 3.2 g/dL (1.3-4.6) 09/03/24 10:20 Coronavirus (PCR) Negative (Negative) 09/03/24 11:38 Influenza A (PCR) Negative (Negative) 09/03/24 11:38 Influenza Type B (PCR) Negative (Negative) 09/03/24 11:38 RSV (PCR) Negative (Negative) 09/03/24 11:38 All radiology interpretation(s) finalized by discharge Discharge Plan Discharge Patient Disposition: Home Clinical Impression: Vasovagal syncope Condition: Stable Prescriptions: No Action olmesartan [Benicar] 20 mg tablet 20 mg PO DAILY pantoprazole 20 mg tablet,delayed release (DR/EC) 20 mg PO DAILY simvastatin 20 mg tablet 20 mg PO DAILY galantamine 8 mg tablet 8 mg PO BID 90 Days Qty: 180 3RF Rx Instructions: administer with AM and PM meals silodosin 8 mg capsule See Rx Instructions .ROUTE .COMPLEX Qty: 90 0RF Dose Instruction: TAKE ONE CAPSULE BY MOUTH EVERY MORNING MUST ADMINISTER WITH A MEAL/FOOD Rx Instructions: TAKE ONE CAPSULE BY MOUTH EVERY MORNING MUST ADMINISTER WITH A MEAL/FOOD multivitamin Tablet 1 tab PO QAM melatonin 3 mg Capsule 3 mg PO BEDTIME Discharge Orders: Discharge ED (Routine); Ordered 09/03/24 Ordered By: Judie Shelton Referrals: Yaima Ji MD [Primary Care Provider] - Discharge Diet: Usual diet Discharge Activity: Increase activity as tolerated Patient Instructions: Syncope (ED), Opioid Safety, Pain Management Activity Restrictions/Additional Instructions: Thank you for choosing [facility] for your healthcare needs today. Please realize this is an emergency room and that we are providing you with a medical screening exam and this may not be complete and all inclusive of all the testing and or work up that you may need to determine your ailment or severity of your illness. You have been screened and evaluated and felt safe for discharge. Health conditions do change or evolve sometimes and as such it is important that you follow up with your Primary Doctor to be re checked, 3-5 days is a general good time frame for follow up. You are always welcome to return to the ED for re assessment if your symptoms are worsening or you have new concerns Print Language: Mauritian Coding Level of Care Code ED Patient Assistant for Yfn Henderson
[2024-09-03 10:00] VITALS: BP 124/67; PULSE 81; RESP 24; O2SAT 92
--- NOTE | 2024-09-03 10:06 | ECG_ITS ---
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 Measurements Intervals [place] Rate: 68 P: 48 VT: 162 QRS: -55 QRSD: 106 T: 31 QT: 408 QTc: 435 Interpretive Statements SINUS RHYTHM WITH FREQUENT VENTRICULAR PREMATURE COMPLEXES LEFT ANTERIOR FASCICULAR BLOCK [QRS AXIS <= -45, QR IN I, RS IN II] Compared to ECG 09/26/2022 08:04:40 Ventricular premature complex(es) now present Left anterior fascicular block now present Left-axis deviation no longer present Electronically Signed On 09-05-2024 22:03:52 QUANTITATIVE STRATEGY ANALYST by Gelacio Masterson M.D. [id number]
[2024-09-03 10:30] LABS: Basophils # 0.1 10^3/uL (0.0-0.1); Basophils % 0.9 %; Eosinophils # 0.3 10^3/uL (0.0-0.8); Eosinophils % 4.5 %; Hematocrit 39.4 % (37-53); Lymphocytes # 1.9 10^3/uL (0.8-4.8); Mean Corpuscular Hemoglobin 29.9 pg (27-33); Mean Corpuscular Volume 93.4 fl (82-101); Mean Platelet Volume 10.3 fL (7.4-10.4); Monocytes # 0.6 10^3/uL (0.2-0.9); Monocytes % 9.7 %; Neutrophils # 3.57 10^3/uL (1.8-7.7); Neutrophils % 55.6 %; Nucleated Red Blood Cells % 0 %; Platelet Count 269 10^3/cmm (157-399); Red Blood Count 4.22 10^6/uL (3.85-5.65); Red Cell Distribution Width 12.8 % (12.1-15.1); White Blood Count 6.42 10^3/uL (3.29-11.43)
[2024-09-03 10:44] LABS: Lactic Sepsis W/Reflex 1.9 mmol/L (0.5-2.2)
[2024-09-03 10:45] LABS: Troponin(5th) Baseline 16 ng/L (0-15)
[2024-09-03 10:46] LABS: D Dimer 0.49 ug/mLFEU (0-0.59)
[2024-09-03 10:48] LABS: Alanine Aminotransferase 10 U/L (0-41); Albumin Level 4.3 g/dL (3.5-5.2); Alkaline Phosphatase 75 U/L (40-130); Aspartate Amino Transferase 18 U/L (0-40); Blood Urea Nitrogen 18 mg/dL (8-23); Calcium 8.9 mg/dL (8.5-10.5); Carbon Dioxide 23 mmol/L (22-29); Chloride 103 mmol/L (98-107); Creatinine Clr Calc Pharmacy 46.3102; Globulin 3.2 g/dL (1.3-4.6); Glucose 110 mg/dL (65-115); Osmolality Calculated 289 mOsm/kg (285-295); Sodium 138 mmol/L (136-145); Total Bilirubin 0.4 mg/dL (0.15-1.2); Total Protein 7.5 g/dL (6.6-8.7)
--- NOTE | 2024-09-03 11:36 | ECG_ITS ---
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 Measurements Intervals [place] Rate: 73 P: 55 LA: 166 QRS: -51 QRSD: 106 T: 32 QT: 401 QTc: 444 Interpretive Statements SINUS RHYTHM WITH FREQUENT VENTRICULAR PREMATURE COMPLEXES LEFT ANTERIOR FASCICULAR BLOCK [QRS AXIS <= -45, QR IN I, RS IN II] Compared to ECG 09/03/2024 10:06:59 No significant changes Electronically Signed On 09-05-2024 22:22:18 EYEGLASS FRAME TRUER by Gelacio Masterson M.D. [id number]
[2024-09-03 12:36] LABS: Covid PCR NEGATIVE (Negative); Influenza A NEGATIVE (Negative); Influenza B NEGATIVE (Negative); Respiratory Syncytial Virus Ce NEGATIVE (Negative)
[2024-09-03 12:41] LABS: Troponin 5 2HR 15.64 ng/L (0-15)
[2024-09-03 12:44] LABS: Troponin 5 2HR Delta -0.36 ABS# (0-10)
[2024-09-03 12:59] VITALS: BP 136/74; PULSE 83; O2SAT 93
== END 2024-09-03 13:00 | disposition home or self-care (01) ==
PROVIDERS: Emergency Provider Emergency Medicine; PCP Family Medicine
DX: R55 Syncope and collapse (principal); Z11.52 Encounter for screening for COVID-19; I10 Essential (primary) hypertension; E78.5 Hyperlipidemia, unspecified
CPT/HCPCS: 36415; 71045; 80053; 83605; 84484; 85025; 85378; 87637; 93005; 99285

== ENCOUNTER → 2024-11-06 09:22 | Outpatient (BNVA) | payer MEDICARE, SELFPAY | PROVIDERS: PCP Family Medicine; Visit Provider Internal Medicine | DX: R55 Syncope and collapse (principal); I10 Essential (primary) hypertension; R06.02 Shortness of breath; R42 Dizziness and giddiness | CPT/HCPCS: 99204 ==

== ENCOUNTER 2024-12-13 09:42 | Outpatient (CLI) | payer MEDICARE, SELFPAY ==
--- NOTE | 2024-12-13 10:00 | USCV_ITS ---
Marquise Leon Age: 84 Gender: M : 1940 Exam Date: 12/13/2024 10:24 Ordering Phys: Gelacio Masterson M.D ([email or web address]) Technologist: GERARDO Exam Location: [facility] Indication: SoB BP: 128 / 70 HR: 63 Rhythm: Sinus Technical Quality: Adequate MEASUREMENTS (Male / Female) Normal Values 2D ECHO LV Diastolic Diameter PLAX 5.5 cm 4.2 - 5.9 / 3.9 - 5.3 cm IVS Diastolic Thickness 0.8 cm 0.6 - 1.0 / 0.6 - 0.9 cm IVS Systolic Thickness 1.3 cm LVPW Diastolic Thickness 0.9 cm 0.6 - 1.0 / 0.6 - 0.9 cm LVPW Systolic Thickness 1.4 cm LVOT Diameter 1.9 cm LV Ejection Fraction 2D Teich 59.4 % LV Ejection Fraction MOD 4C 57.6 % LV Ejection Fraction MOD 2C 61.2 % LV Ejection Fraction 2C AL 62.0 % LA Diameter 3.0 cm RA Systolic Volume 4C AL 28.1 ml RA Systolic Volume 4C MOD 26.9 ml Aorta at Sinotubular Diameter 2.5 cm IVC Diameter 1.7 cm M-MODE LA Ao Ratio MM 1.4 AV Cusp Separation MM 1.7 cm DOPPLER AV Peak Velocity 130.0 cm/s AV Area Cont Eq vti 2.3 cm squared AV Area Cont Eq pk 2.0 cm squared MV Peak Velocity 136.0 cm/s MV Area PHT 3.3 cm squared Mitral E to A Ratio 0.6 TV Peak Velocity 206.5 cm/s TR Peak Velocity 239.0 cm/s TR Peak Gradient 22.8 mmHg TV Peak E Velocity 64.0 cm/s PV Peak Velocity 87.0 cm/s FINDINGS Left Ventricle Left ventricle is normal size. LV systolic function is normal with EF of 55-60%. No regional wall motion abnormalities are seen. Grade 1 diastolic dysfunction Right Ventricle Normal in size and function Right Atrium Normal in size Left Atrium Normal in size Mitral Valve Mild mitral valve calcification. Mild mitral regurgitation. Aortic Valve Aortic valve is thickened. No significant stenosis or regurgitation. Tricuspid Valve Mild tricuspid regurgitation. Pulmonary artery systolic pressure is normal. Pulmonic Valve Mild pulmonic regurgitation Pericardium Normal Aorta Normal in size IVC Appears to be normal CONCLUSIONS LV systolic function is normal with EF of 55-60% Grade 1 diastolic dysfunction Mild mitral regurgitation Mild tricuspid regurgitation Mild pulmonic regurgitation Gelacio Masterson MD (Electronically Signed) Final Date: 02 January 2025 10:35 S
== END 2024-12-13 09:43 | disposition home or self-care (01) ==
PROVIDERS: PCP Family Medicine; Visit Provider Internal Medicine
DX: R06.02 Shortness of breath (principal); R93.1 Abnormal findings on diagnostic imaging of heart and coronary circulation; I34.81 Nonrheumatic mitral (valve) annulus calcification; I34.0 Nonrheumatic mitral (valve) insufficiency; I35.8 Other nonrheumatic aortic valve disorders; I07.1 Rheumatic tricuspid insufficiency; I37.1 Nonrheumatic pulmonary valve insufficiency
CPT/HCPCS: 93306

== ENCOUNTER → 2024-12-18 13:42 | Outpatient (BNVA) | payer MEDICARE, SELFPAY | PROVIDERS: PCP Family Medicine; Visit Provider Internal Medicine | DX: R55 Syncope and collapse (principal); I10 Essential (primary) hypertension | CPT/HCPCS: 99213 ==

== ENCOUNTER → 2025-02-28 10:38 | Outpatient (BNVA) | payer MEDICARE, SELFPAY | PROVIDERS: PCP Family Medicine; Visit Provider Nurse Practitioner Family | DX: L73.8 Other specified follicular disorders (principal); L82.1 Other seborrheic keratosis; D18.01 Hemangioma of skin and subcutaneous tissue; Z85.820 Personal history of malignant melanoma of skin; Z08 Encounter for follow-up examination after completed treatment for malignant neoplasm | CPT/HCPCS: 17000; 17110; 99213 ==

== ENCOUNTER 2025-05-11 11:57 | Emergency (ER) | payer MEDICARE, SELFPAY ==
[2025-05-11] VITALS (8 sets, daily range): BP systolic 121–146; BP diastolic 66–88; PULSE 61–96; RESP 18–21; TEMP 36.7; O2SAT 95–98; BMI 25.0
--- NOTE | 2025-05-11 11:54 | XRR_ITS ---
PROCEDURE INFORMATION: Exam: XR Chest Exam date and time: 05/11/2025 12:41 PM Age: 84 years old Clinical indication: Cough and dyspnea; Additional info: Dyspnea/cough TECHNIQUE: Imaging protocol: Radiologic exam of the chest. Views: 1 view. COMPARISON: CR XR chest 1V portable [id number] 09/03/2024 9:28 AM FINDINGS: Lungs: Unremarkable. No consolidation. Pleural spaces: Unremarkable. No pleural effusion. No pneumothorax. Heart/Mediastinum: Moderate hiatal hernia again noted. Bones/joints: Unremarkable. XR/XR chest 1V portable [id number] IMPRESSION: No acute findings.
--- NOTE | 2025-05-11 11:54 | ECG_ITS ---
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1940 Requested By: Dg Gomez Order Number: [id number] Reading MD: SCOTTY DO Measurements Intervals [place] Rate: 59 P: 11 MN: 159 QRS: -39 QRSD: 107 T: 2 QT: 451 QTc: 448 Interpretive Statements SINUS BRADYCARDIA LEFT AXIS DEVIATION [QRS AXIS < -30] PATTERN CONSISTENT WITH PULMONARY DISEASE Compared to ECG 09/03/2024 11:36:52 Left-axis deviation now present Sinus rhythm no longer present Ventricular premature complex(es) no longer present Left anterior fascicular block no longer present Electronically Signed On 05-11-2025 23:13:41 CDT by SCOTTY DO [id number] [id number]
--- OUTSIDE RECORDS SUMMARY | 2025-05-11 12:12 | XMS_ITS | Encounter Summary ---
Author Organization [facility] Address [address] [place] [address] Care Team Providers Care Waiter/Waitress Economy Class Name Role Phone Tosin Munson DO Primary Care Provider Encounter Details Date Type Department Care Team (Late st Contact Info) Description 07/09/2002 Outpatient Historical [facility] Dermatology- 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
--- OUTSIDE RECORDS SUMMARY | 2025-05-11 12:12 | XMS_ITS | Encounter Summary ---
Author Organization [facility] Address [address] [place] [address] Care Team Providers Care Magnetic Tape Winder Name Role Phone Tosin Munson DO Primary Care Provider Encounter Details Date Type Department Care Team (Late st Contact Info) Description 04/30/2003 Outpatient Historical [facility] Dermatology- 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
--- OUTSIDE RECORDS SUMMARY | 2025-05-11 12:12 | XMS_ITS | Encounter Summary ---
Author Organization [facility] Address [address] [place] [address] Care Team Providers Care Shut Off Worker Name Role Phone Tosin Munson DO Primary Care Provider [phone] Encounter Details Date Type Department Care Team (Late st Contact Info) Description 04/26/2006 Outpatient Historical [facility] Dermatology- [address] [place] 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
--- OUTSIDE RECORDS SUMMARY | 2025-05-11 12:12 | XMS_ITS | Encounter Summary ---
Author Organization [facility] Address [address] [place] [address] Care Team Providers Care Assurance Senior Manager Insurance Name Role Phone Tosin Munson DO Primary Care Provider Encounter Details Date Type Department Care Team (Late st Contact Info) Description 06/11/2001 Outpatient Historical [facility] Dermatology- [address] [place] 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
--- OUTSIDE RECORDS SUMMARY | 2025-05-11 12:12 | XMS_ITS | Encounter Summary ---
Author Organization [facility] Address [address] [place] [address] Care Team Providers Care Cadmium Burner Name Role Phone Tosin Munson DO Primary Care Provider Encounter Details Date Type Department Care Team (Late st Contact Info) Description 11/16/2004 Outpatient Historical [facility] [address] [place] [address] [place] [phone] Mac Weber MD [address] [place] [phone] ACTINIC KERATOSIS (Primary Dx) Social History Tobacco Use Types Packs/Day Years Used Date Smoking Tobacco: Never Assessed Sex and Gender Information Value Date Recorded Sex Assigned at Not on file 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
--- OUTSIDE RECORDS SUMMARY | 2025-05-11 12:12 | XMS_ITS | Clinical Summary ---
Author Organization [facility] Address [address] [place] [address] Care Team Providers Care Fire Equipment Operator Name Role Phone Tosin Munson Primary Care Provider Allergies No known active allergies Medications CENTRUM SILVER PO Take 1 Tablet by mouth daily . Active Glucosamine Sulfate 1,000 mg Capsule Take 1 Tab by mouth daily. Active triamcinolone acetonide (KENALOG) 0.1 % CreamIndications:Ps oriasis Apply to affected area 2 times daily. 60 Gram 2 5 Active traMADol (ULTRAM) 50 mg tabletIndications:L ow back pain radiating to left leg Take 1 Tablet (50 mg) by mouth every 6 hours as needed for Pain. 30 Tablet 1 0 Active gabapentin (NEURONTIN) 100 mg capsuleIndications: Low back pain radiating to left leg Take 100 mg by mouth 3 times daily. 0 Active losartan (COZAAR) 50 mg tabletIndications:E ssential hypertension Take 1 Tablet (50 mg) by mouth daily. 90 Tablet 4 0 Active simvastatin (ZOCOR) 20 mg tabletIndications:M ixed hyperlipidemia Take 1 Tablet (20 mg) by mouth late in the day. 90 Tablet 4 0 Active diclofenac sodium (VOLTAREN) 1 % gelIndications:Prim maynor osteoarthritis involving multiple joints APPLY 2 TO 4 GRAMS TO AFFECTED AREA 4 TIMES DAILY. 100 Gram 5 0 Active Active Problems Problem Noted Date Diagnosed Date Primary osteoarthritis involving multiple joints 11/14/2020 Essential hypertension 11/14/2020 Stage 3a chronic kidney disease 11/14/2020 Personal history of skin cancer 08/20/2014 Hyperlipidemia 08/20/2014 Primary osteoarthritis of both knees 08/20/2014 Actinic keratosis 10/29/2010 Immunizations Immunization Administration Dates Next Due INFLUENZA VACCINE HIGH DOSE QUADRIVALENT 65 YR U P PF IM 05/13/2020 Influenza Seasonal Unspecified Formulation IM PNEUMOVAX (PPSV23) pneumococ grisel polysaccharide 23-valent Vaccine 12/20/2007 Family History Medical History Relation Name Comments Colon Cancer Neg Hx Social History Tobacco Use Types Packs/Day Years Used Date Smoking Tobacco: Never Smokeless Tobacco: Never Alcohol Use Standard Drinks/Week Comments Yes 0 (1 standard drink = 0.6 oz pur e alcohol) Sex and Gender Information Value Date Recorded Sex Assigned at Not on file Legal 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 Gender Identity Not on file Sexual Orientation Not on file Last Filed Vital Signs Vital Sign Reading Time Taken Comments Blood Pressure 140/82 11/05/2020 12:00 PM CDT Pulse 83 11/05/2020 12:00 PM CDT Temperature 36.7 C (98 F) 11/05/2020 12:00 PM CDT Respiratory Rate 18 11/05/2020 12:00 PM CDT Oxygen Saturation 97% 11/05/2020 12:00 PM CDT Inhaled Oxygen Concentration - - Weight 75.3 kg (166 lb) 11/05/2020 12:00 PM CDT Height 172.7 cm (5' 8 ) 11/05/2020 12:00 PM CDT Body Mass Index 25.24 11/05/2020 12:00 PM CDT Plan of Treatment Health Maintenance Due Date Last Done Comments DTAP/TDAP/TD VACCINES (1 - Tdap) 1959 ZOSTER VACCINE (1 of 2) 1990 RSV VACCINE (60+ or ) (1 - 1-dose 75+ series) 2015 Traditional Medicare (ACO) A nnual Wellness Visit 11/06/2021 11/05/2020, 02/08/2017, 11/13/2015 INFLUENZA VACCINE (#1) 2025 05/13/2020, 2015 PNEUMOCOCCAL VACCINE 50+ YEARS Completed 04/30/2015 , 12/20/2007 COLORECTAL SCREENING Discontinued 11/06/2018, 09/23/2014, 09/23/2014 Colorectal Cancer Screening Discontinued FIT-DNA Q 3 years Discontinued FIT/FOBT Q 1 year Discontinued Flex Sig/CT Colonography Q 5 years Discontinued Procedures Procedure Name Priority Date/Time Associated Diagnosis Comments ENDOSCOPY, COLON, DIAGNOSTIC Routine 09/23/2014 1:25 PM WELFARE AIDE Personal history of digestive disease from Last 3 Months or Most Recently Relevant to Health Maintenance Insurance MEDICARE PART A AND B Advance Directives For more information, please contact: [phone] * Full Code (Latest Code Status on File) Date Activated Date Inactivated Comments 09/23/2014 1:26 PM 09/23/2014 4:53 PM Care Teams Fire Equipment Operator Relationship Specialty Start Date End Date Tosin Munson DO [address] [place] [address] PCP - General Family Practice 11/02/20
--- OUTSIDE RECORDS SUMMARY | 2025-05-11 12:12 | XMS_ITS | Encounter Summary ---
Author Organization [facility] Address [address] [place] [address] Care Team Providers Care Player Development Executive Name Role Phone Tosin Munson DO Primary Care Provider Encounter Details Date Type Department Care Team (Late st Contact Info) Description 10/12/2000 Outpatient Historical [facility] Dermatology- [address] [place] 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
--- OUTSIDE RECORDS SUMMARY | 2025-05-11 12:12 | XMS_ITS | Encounter Summary ---
Author Organization [facility] Address [address] [place] [address] Care Team Providers Care Accounts Payable Coordinator Name Role Phone Tosin Munson DO Primary Care Provider [phone] Encounter Details Date Type Department Care Team (Late st Contact Info) Description 04/26/2006 Outpatient Historical [facility] Central [facility] [address] [place] [address] [place] [phone] Mac Weber MD [address] [place] [phone] Benign Neoplasm of Skin of Trunk, except Scrotum (Primary Dx) Social History Tobacco Use Types Packs/Day Years Used Date Smoking Tobacco: Never Assessed Sex and Gender Information Value Date Recorded Sex Assigned at Not on file 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
--- OUTSIDE RECORDS SUMMARY | 2025-05-11 12:12 | XMS_ITS | Encounter Summary ---
Author Organization [facility] Address [address] [place] [address] Care Team Providers Care Health Researcher Name Role Phone Tosin Munson DO Primary Care Provider [phone] Encounter Details Date Type Department Care Team (Late st Contact Info) Description 09/24/[address] 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
--- OUTSIDE RECORDS SUMMARY | 2025-05-11 12:12 | XMS_ITS | Encounter Summary ---
Author Organization [facility] Address [address] [place] [address] Care Team Providers Care Office Machine Embossograph Operator Name Role Phone Tosin Munson DO Primary Care Provider Encounter Details Date Type Department Care Team (Late st Contact Info) Description 07/02/2007 Outpatient Historical [facility] Dermatology- 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
--- OUTSIDE RECORDS SUMMARY | 2025-05-11 12:12 | XMS_ITS | Clinical Summary ---
Author Organization [facility] Address [address] [place] [address] Care Team Providers Care Economic Development Manager Name Role Phone Unavailable Primary Care Provider Unavailabl e Allergies No known active allergies Medications Glucosamine Sulfate 1,000 mg Capsule Take 1 Tablet by mouth daily. Active folic acid/multivit-min/l utein (CENTRUM SILVER ORAL) Take 1 Tablet by mouth daily. Active silodosin (RAPAFLO) 8 mg Capsule 1 Active gabapentin (NEURONTIN) 100 mg capsule 1 Active tamsulosin (FLOMAX) 0.4 mg capsule 1 Active olmesartan (BENICAR) 20 mg tabletIndications:E ssential hypertension Take 1 Tablet (20 mg) by mouth daily. 90 Tablet 3 2 Active Glucosamine Sulfate 1,000 mg Capsule Take 1 Tab by mouth daily. 5 Active triamcinolone acetonide (KENALOG) 0.1 % CreamIndications:Ps oriasis Apply to affected area 2 times daily. 60 Gram 2 5 Active simvastatin (ZOCOR) 20 mg tabletIndications:M ixed hyperlipidemia TAKE ONE TABLET BY MOUTH EACH EVENING 90 Tablet 2 2 Active Active Problems Problem Noted Date Diagnosed Date History of TIA (transient ischemic attack) and s troke 08/15/2021 Essential hypertension 11/14/2020 Primary osteoarthritis involving multiple joints 11/14/2020 Stage 3a chronic kidney disease 11/14/2020 Personal history of skin cancer 08/20/2014 Mixed hyperlipidemia 08/20/2014 Primary osteoarthritis of both knees 08/20/2014 Actinic keratosis 10/29/2010 Immunizations Immunization Administration Dates Next Due INFLUENZA VACCINE HIGH DOSE QUADRIVALENT 65 YR UP PF IM 04/29/2021,05/13/2020 Influenza Seasonal Unspecified Formulation IM PNEUMOVAX (PPSV23) pneumococ grisel polysaccharide 23-valent Vaccine 12/20/2007 Family History Medical History Relation Name Comments Colon Cancer Neg Hx Social History Tobacco Use Types Packs/Day Years Used Date Smoking Tobacco: Never Passive Smoke Exposure: Never Smokeless Tobacco: Never Tobacco Cessation:Counseling Given: No Alcohol Use Standard Drinks/Week Comments Not Currently 0 (1 standard drink = 0.6 oz pur e alcohol) Sex and Gender Information Value Date Recorded Sex Assigned at Not on file Legal Sex Male 12:58 AM 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 Gender Identity Not on file Sexual Orientation Not on file Last Filed Vital Signs Vital Sign Reading Time Taken Comments Blood Pressure 122/60 02/05/2024 8:40 AM CDT Pulse 92 02/05/2024 8:40 AM CDT Temperature 37 C (98.6 F) 02/05/2024 8:40 AM CDT Respiratory Rate 18 02/05/2024 8:40 AM CDT Oxygen Saturation 96% 02/05/2024 8:40 AM CDT Inhaled Oxygen Concentration - - Weight 73.8 kg (162 lb 9.6 oz) 02/05/2024 8:40 A M CDT Height 172.7 cm (5' 8 ) 02/05/2024 8:40 AM CDT Body Mass Index 24.72 02/05/2024 8:40 AM CDT Plan of Treatment Health Maintenance Due Date Last Done Comments DTAP/TDAP/TD VACCINES (1 - Tdap) 1959 ZOSTER VACCINE (1 of 2) 1990 PNEUMOCOCCAL VACCINE 50+ YEA RS (2 of 2 - PCV) 12/19/2008 12/20/2007 RSV VACCINE (60+ or ) (1 - 1-dose 75+ series) 2015 INFLUENZA VACCINE (#1) 2025 , 05/13/2020, 05/17/2016 COLORECTAL SCREENING Discontinued 11/06/2018, 09/23/2014, 09/23/2014 Colorectal Cancer Screening Discontinued FIT-DNA Q 3 years Discontinued FIT/FOBT Q 1 year Discontinued Flex Sig/CT Colonography Q 5 years Discontinued Insurance [facility] [id number]
--- NOTE | 2025-05-11 12:14 | W.ED.SYNCOPE ---
HPI - Syncope General: Chief Complaint: Syncope Stated Complaint: SYNCOPE History of Present Illness: 84-year-old male presents to the emergency room after a syncopal episode while at [employer]. He been standing went to sit down and passed out he does not recall anything particular. He states he has had these episodes before he he denies striking his head he denies having any chest pain at this time. No recent medication changes he is not diabetic. He does have a history of hypertension and Alzheimer's. No recent illness no fever sweats chills nausea vomiting or diarrhea Associated symptoms: Deny abdominal pain, chest pain or fever(s) Related Data Home Medications ?Medication ?Instructions ?Recorded ?Confirmed multivitamin 1 tab PO QAM 03/04/21 05/11/25 melatonin 3 mg capsule 3 mg PO BEDTIME 03/22/22 05/11/25 olmesartan 20 mg tablet (Benicar) 20 mg PO DAILY 03/24/23 05/11/25 pantoprazole 20 mg tablet,delayed 20 mg PO DAILY 03/24/23 05/11/25 release simvastatin 20 mg tablet 20 mg PO DAILY 03/30/23 05/11/25 doxepin 3 mg tablet 3 mg PO DAILY 05/11/25 05/11/25 Previous Rx's ?Medication ?Instructions ?Recorded galantamine 8 mg tablet 8 mg PO BID 90 days #180 tabs 05/24/22 silodosin 8 mg capsule See Rx Instructions .Route 01/03/23 .COMPLEX #90 caps Allergies Allergy/AdvReac Type Severity Reaction Status Date / Time No Known Allergies Allergy Verified 12/18/24 14:15 Review of Systems Const: Denies: fever(s) or chills Card: Denies: chest pain Resp: Denies: dyspnea GI: Denies: abdominal pain : Denies: dysuria, urinary frequency or urinary urgency Musc: Denies: neck pain or back pain Skin/Breast: Denies: rash PFSH ED PFSH: Medical History BPH w urinary obs/LUTS Hypertension Arriaga's cyst, 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 Alzheimer disease Urinary retention Surgical History History of tonsillectomy History of circumcision History of lumbar laminectomy Family History Father , at age 72 Cancer liver Mother , at age 75 Dementia Social History Smoking and tobacco/nicotine status: never used tobacco/nicotine Alcohol intake: never Substance/Drug Use: never Marital status: Current occupational status: retired Physical Exam Const: COMMON NORMALS: no acute distress GENERAL APPEARANCE: cooperative and comfortable ORIENTATION/CONSCIOUSNESS: Yes awake, Yes oriented to person, Yes oriented to place and Yes oriented to time HENMT: COMMON NORMALS: normocephalic, atraumatic and hearing grossly normal bilaterally HEAD & SCALP: normocephalic and atraumatic Resp: COMMON NORMALS: normal respiratory effort, No retractions, No use of accessory muscles and clear to auscultation bilaterally AUSCULTATION: clear to auscultation bilaterally Cardio: COMMON NORMALS: regular rate, regular rhythm and No murmurs present (Cardio) RATE: regular rate RHYTHM: regular rhythm GI: COMMON NORMALS: Soft to palpation and No hepatosplenomegaly present AUSCULTATION: Yes normoactive bowel sounds PALPATION: Yes Soft to palpation, No Tenderness to palpation present (GI), No Guarding due to palpation present (GI) and Yes No hepatosplenomegaly present Extremity: COMMON NORMALS: normal to inspection, capillary refill normal, no clubbing, cyanosis or edema, no calf tenderness and no pedal edema Neuro: SENSORIUM/ORIENTATION: Yes oriented to person, Yes oriented to place and Yes oriented to time Skin: COMMON NORMALS: no rashes or lesions noted GENERAL SKIN EXAM: no rashes or lesions noted Course Vital Signs: Vital signs: Vital Signs Temperature 98.1 F 05/11/25 11:57 Pulse Rate 76 05/11/25 15:30 Respiratory Rate 20 H 05/11/25 14:36 Blood Pressure 138/73 05/11/25 15:30 Pulse Oximetry 95 05/11/25 15:30 Oxygen Delivery Me thod Room Air 05/11/25 15:30 MDM - Syncope Medical Decision Making Patient is feeling much better. Family question if he had seizures he never really had a postictal phase he was standing up started get lightheaded and dizzy sat down and then shortly after very shortly after that he briefly passed out he remembered what happened after he woke up. He is able to relate it to me now he does not have any muscle aches there is no loss of bowel or bladder control. He had similar episode before cardiology workup at previous episode was negative. Findings negative analysis ambulating without difficulty will discharge patient home per family's request we will set him up for outpatient follow-up with neurology. Lab Data 05/11/25 12:13 05/11/25 12:13 Radiology Impressions Chest X-Ray 05/11/25 11:54 IMPRESSION: No acute findings. Laboratory Results WBC 7.99 10^3/uL (3.29-11.43) 05/11/25 12:13 RBC 4.00 10^6/uL (3.85-5.65) 05/11/25 12:13 Hgb 11.60 g/dL (11.27-16.99) 05/11/25 12:13 Hct 36.5 % (37-53) L 05/11/25 12:13 MCV 91.3 fl (82-101) 05/11/25 12:13 MCH 29.0 pg (27-33) 05/11/25 12:13 MCHC 31.8 g/dL (30-55) 05/11/25 12:13 RDW 13.8 % (12.1-15.1) 05/11/25 12:13 Plt Count 163 10^3/cmm (157-399) 05/11/25 12:13 MPV 10.9 fL (7.4-10.4) H 05/11/25 12:13 Neut % (Auto) 49.2 % 05/11/25 12:13 Lymph % (Auto) 37.9 % 05/11/25 12:13 [place] % (Auto) 9.0 % 05/11/25 12:13 Eos % (Auto) 2.8 % 05/11/25 12:13 Baso % (Auto) 0.8 % 05/11/25 12:13 Neut # (Auto) 3.94 10^3/uL (1.8-7.7) 05/11/25 12:13 Lymph # (Auto) 3.0 10^3/uL (0.8-4.8) 05/11/25 12:13 [place] # (Auto) 0.7 10^3/uL (0.2-0.9) 05/11/25 12:13 Eos # (Auto) 0.2 10^3/uL (0.0-0.8) 05/11/25 12:13 Baso # (Auto) 0.1 10^3/uL (0.0-0.1) 05/11/25 12:13 Nucleated RBC % (auto) 0 % 05/11/25 12:13 Nucleated RBCs # 0.0 /100WBC 05/11/25 12:13 Sodium 139 mmol/L (136-145) 05/11/25 12:13 Potassium 4.2 mmol/L (3.5-5.1) 05/11/25 12:13 Chloride 104 mmol/L (98-107) 05/11/25 12:13 Carbon Dioxide 20 mmol/L (22-29) L 05/11/25 12:13 Anion Gap 19.2 (5-19) H 05/11/25 12:13 BUN 27 mg/dL (8-23) H 05/11/25 12:13 Creatinine 1.3 mg/dL (0.7-1.2) H 05/11/25 12:13 GFR Calculation Not Reportable 05/11/25 12:13 Glucose 121 mg/dL (65-115) H 05/11/25 12:13 Calculated Osmolality 294 mOsm/kg (285-295) 05/11/25 12:13 Calcium 9.0 mg/dL (8.5-10.5) 05/11/25 12:13 Total Bilirubin 0.5 mg/dL (0.15-1.2) 05/11/25 12:13 AST 28 U/L (0-40) 05/11/25 12:13 ALT 13 U/L (0-41) 05/11/25 12:13 Alkaline Phosphatase 70 U/L (40-130) 05/11/25 12:13 Troponin T Baseline 16 ng/L (0-15) H 05/11/25 12:13 Troponin T 120 Minute 18.97 ng/L (0-15) H 05/11/25 14:13 Delta Troponin T 2.97 ABS# (0-10) 05/11/25 14:13 Total Protein 7.7 g/dL (6.6-8.7) 05/11/25 12:13 Albumin 4.5 g/dL (3.5-5.2) 05/11/25 12:13 Globulin 3.2 g/dL (1.3-4.6) 05/11/25 12:13 Urine Color Yellow (Yellow) 05/11/25 15:12 Urine Appearance Clear (CLEAR) 05/11/25 15:12 Urine pH 5 (5-7) 05/11/25 15:12 Ur Specific [place] 1.020 (1.005-1.030) 05/11/25 15:12 Urine Protein 1+ (Negative) H 05/11/25 15:12 Urine Glucose (UA) Norm (Normal) 05/11/25 15:12 Urine Ketones 1+ (Negative) H 05/11/25 15:12 Urine Blood Neg (Negative) 05/11/25 15:12 Urine Nitrate Negative (Negative) 05/11/25 15:12 Urine Bilirubin Neg (Negative) 05/11/25 15:12 Urine Urobilinogen Neg mg/dL (Negative) 05/11/25 15:12 Ur Leukocyte Esterase Negative (Negative) 05/11/25 15:12 Urine RBC 0-4 /hpf (0-2) H 05/11/25 15:12 Urine WBC 0-5 /hpf (0-5) 05/11/25 15:12 Ur Squamous Epith Cells 0-4 /hpf (0-5) H 05/11/25 15:12 Amorphous Sediment Not Reportable 05/11/25 15:12 Urine Bacteria Trace /hpf (NONE) 05/11/25 15:12 Hyaline Casts 5-10 /lpf H 05/11/25 15:12 Urine Mucus 1+ /hpf 05/11/25 15:12 All radiology interpretation(s) finalized by discharge Discharge Plan Discharge Patient Disposition: Home Clinical Impression: Syncope due to orthostatic hypotension Condition: Stable Prescriptions: No Action olmesartan [Benicar] 20 mg tablet 20 mg PO DAILY pantoprazole 20 mg tablet,delayed release (DR/EC) 20 mg PO DAILY simvastatin 20 mg tablet 20 mg PO DAILY galantamine 8 mg tablet 8 mg PO BID 90 Days Qty: 180 3RF Rx Instructions: administer with AM and PM meals silodosin 8 mg capsule See Rx Instructions .ROUTE .COMPLEX Qty: 90 0RF Dose Instruction: TAKE ONE CAPSULE BY MOUTH EVERY MORNING MUST ADMINISTER WITH A MEAL/FOOD Rx Instructions: TAKE ONE CAPSULE BY MOUTH EVERY MORNING MUST ADMINISTER WITH A MEAL/FOOD multivitamin Tablet 1 tab PO QAM melatonin 3 mg Capsule 3 mg PO BEDTIME doxepin 3 mg tablet 3 mg PO DAILY Discharge Orders: Discharge ED (Routine); Ordered 05/11/25 Ordered By: Dg Telles Referrals: Yaima Ji MD [Staff Physician, Family Practice] Discharge Diet: Usual diet Discharge Activity: Increase activity as tolerated Patient Instructions: Opioid Safety, Pain Management, Patient Portal & Alfonso Instructions Activity Restrictions/Additional Instructions: [facility] you [facility] your healthcare needs today. It is very important that you follow up as instructed or that you return to the Emergency Department should you have concerns or if your condition changes or worsens in any way. Emergency department visits are focused on emergent conditions, in some cases you may require further evaluation on an outpatient basis. You were seen in the emergency room after a syncopal episode. From your description of the episode you likely had a syncopal episode due to orthostasis. This is where when you are standing for a time your blood pressure begins to drop you had anticipated feeling lightheaded and dizzy and then passed out briefly. You ambulated well and your evaluation in the emergency room was unremarkable. You had asked for a referral to neurology for these episodes. You had related a previous episode a cardiac workup was negative. Will set you up to see neurology as an outpatient. (Please note that included in your discharge packet is information concerning opioid safety and pain management. 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
[2025-05-11 12:23] LABS: Hematocrit 36.5 % (37-53); Hemoglobin 11.60 g/dL (11.27-16.99); Mean Corpuscular HGB Conc 31.8 g/dL (30-55); Mean Corpuscular Hemoglobin 29.0 pg (27-33); Mean Corpuscular Volume 91.3 fl (82-101); Nucleated Red Blood Cells % 0 %; Platelet Count 163 10^3/cmm (157-399); Red Blood Count 4.00 10^6/uL (3.85-5.65); White Blood Count 7.99 10^3/uL (3.29-11.43)
[2025-05-11 12:43] LABS: Troponin(5th) Baseline 16 ng/L (0-15)
[2025-05-11 13:04] LABS: Alanine Aminotransferase 13 U/L (0-41); Albumin Level 4.5 g/dL (3.5-5.2); Alkaline Phosphatase 70 U/L (40-130); Anion Gap 19.2 (5-19); Blood Urea Nitrogen 27 mg/dL (8-23); Calcium 9.0 mg/dL (8.5-10.5); Carbon Dioxide 20 mmol/L (22-29); Chloride 104 mmol/L (98-107); Creatinine Clr Calc Pharmacy 41.0966; Globulin 3.2 g/dL (1.3-4.6); Glucose 121 mg/dL (65-115); Osmolality Calculated 294 mOsm/kg (285-295); Potassium 4.2 mmol/L (3.5-5.1); Sodium 139 mmol/L (136-145); Total Protein 7.7 g/dL (6.6-8.7)
[2025-05-11 13:05] LABS: Aspartate Amino Transferase 28 U/L (0-40)
--- NOTE | 2025-05-11 13:54 | ECG_ITS ---
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: : 1940 Requested By: Dg Gomez Order Number: [id number] Reading MD: SCOTTY DO Measurements Intervals [place] Rate: 78 P: 49 TX: 160 QRS: -47 QRSD: 106 T: 52 QT: 395 QTc: 452 Interpretive Statements SINUS RHYTHM LEFT ANTERIOR FASCICULAR BLOCK [QRS AXIS <= -45, QR IN I, RS IN II] POSSIBLE ANTERIOR MYOCARDIAL INFARCTION , PROBABLY OLD [30 ms Q WAVE IN V3/V4, OR R < 0.2 mV IN V4] Compared to ECG 05/11/2025 12:04:55 Left anterior fascicular block now present Myocardial infarct finding now present Sinus bradycardia no longer present Left-axis deviation no longer present Electronically Signed On 05-11-2025 23:26:45 CDT by SCOTTY DO [email or web address]
--- NOTE | 2025-05-11 14:45 | PC.NURSE ---
Pt was previously ambulated to restroom. Pt tolerated well with no symptoms.
[2025-05-11 15:01] LABS: Troponin 5 2HR 18.97 ng/L (0-15); Troponin 5 2HR Delta 2.97 ABS# (0-10)
[2025-05-11 15:29] LABS: Add Urine Microscopic? YES; Glucose Urine UA Norm (Normal); Nitrate Urine Negative (Negative); Specific Gravity, Urine 1.020 (1.005-1.030)
--- NOTE | 2025-05-11 15:53 | PC.NURSE ---
Pt ambulated to the end of the page and back with no assistance. Pt tolerated well with no complaints.
== END 2025-05-11 16:00 | disposition home or self-care (01) ==
PROVIDERS: Emergency Provider Family Medicine; PCP Family Medicine
DX: I95.1 Orthostatic hypotension (principal); I10 Essential (primary) hypertension
CPT/HCPCS: 36415; 51798; 71045; 80053; 81001; 84484; 85025; 93005; 99285; J7040

== ENCOUNTER → 2025-05-22 09:56 | Outpatient (BNVA) | payer MEDICARE, SELFPAY | PROVIDERS: PCP Family Medicine; Referring Provider Specialist; Visit Provider Specialist | DX: R40.4 Transient alteration of awareness (principal); R55 Syncope and collapse; R56.9 Unspecified convulsions | CPT/HCPCS: 95819 ==